=== PATIENT | female | born 1980 | race African-American/Black ===

== ENCOUNTER 2018-11-13 15:23 | Inpatient (IN) | payer SELFPAY ==
--- NOTE | 2018-11-13 16:49 | ER Document Report ---
ED Medical Screen (RME) - General Chief Complaint: Abdominal Pain Stated Complaint: ABDOMINAL PAIN Time Seen by Provider: 11/13/18 16:20 Mode of Arrival: Ambulatory Information source: Patient Notes: Patient is a 38-year-old female presenting to the emergency department with complaints of mid abdominal pain, diarrhea and nausea. Patient denies any fever or chills. She states that her symptoms started Saturday morning. Exam: Generalized abdominal tenderness to palpation. I have greeted and performed a rapid initial assessment of this patient. A comprehensive ED assessment and evaluation of the patient, analysis of test results and completion of the medical decision making process will be conducted by additional ED providers. Dictation of this chart was performed using voice recognition software; therefore, there may be some unintended grammatical errors. - Related Data Allergies/Adverse Reactions: No Known Allergies Allergy (Verified 11/13/18 15:25) Past Medical History Renal/ Medical History: Reports: Hx Ovarian Cysts. Denies: Hx Peritoneal Dialysis Physical Exam - Vital signs Vitals: Temp Pulse Resp BP Pulse Ox 98.8 F 100 20 138/76 H 100 11/13/18 15:27 11/13/18 15:27 11/13/18 15:27 11/13/18 15:27 11/13/18 15:27 Course - Vital Signs Vital signs: Temp Pulse Resp BP Pulse Ox 98.8 F 100 20 138/76 H 100 11/13/18 15:27 11/13/18 15:27 11/13/18 15:27 11/13/18 15:27 11/13/18 15:27
[2018-11-13 17:22] LABS: APPEARANCE,URINE CLEAR; BILIRUBIN,URINE NEGATIVE (NEGATIVE); COLOR,URINE YELLOW; GLUCOSE, URINE NEGATIVE (NEGATIVE); KETONES,URINE NEGATIVE (NEGATIVE); LEUKOCYTE ESTERASE,URINE NEGATIVE (NEGATIVE); NITRITE,URINE NEGATIVE (NEGATIVE); PROTEIN,URINE NEGATIVE (NEGATIVE); URINE SPECIFIC GRAVITY 1.004; UROBILINOGEN,URINE NEGATIVE mg/dL (<2.0)
[2018-11-13 19:54] LABS: ABSOLUTE BASOPHILS # (AUTO) 0.1 10^3/uL (0.0-0.2); ABSOLUTE LYMPHOCYTES (AUTO) 1.3 10^3/uL (0.5-4.7); ABSOLUTE MONOCYTES (AUTO) 1.4 10^3/uL (0.1-1.4); ABSOLUTE NEUT (AUTO) 16.1 10^3/uL (1.7-8.2); BASOPHILS % (AUTO) 0.3 % (0-2); HEMATOCRIT 22.3 % (36.0-47.0); LYMPHOCYTES % (AUTO) 6.7 % (13-45); MEAN CORPUSCULAR HEMOGLOBIN 16.1 pg (27.0-33.4); MEAN CORPUSCULAR HGB CONC 28.8 g/dL (32.0-36.0); MONOCYTES % (AUTO) 7.6 % (3-13); PLATELET COUNT 443 10^3/uL (150-450); RED BLOOD COUNT 3.99 10^6/uL (3.72-5.28); RED CELL DISTRIBUTION WIDTH 21.2 % (11.5-14.0); SEGMENTED NEUTROPHILS % (AUTO) 85.4 % (42-78); TOTAL CELLS COUNTED % (AUTO) 100 %; WHITE BLOOD COUNT 18.8 10^3/uL (4.0-10.5)
[2018-11-13 19:58] LABS: HEMOGLOBIN 6.4 g/dL (12.0-15.5); MEAN CORPUSCULAR VOLUME 56 fl (80-97)
[2018-11-13 20:09] LABS: PLATELET COMMENT ADEQUATE
[2018-11-13 20:12] LABS: ALANINE AMINOTRANSFERASE 15 U/L (9-52); ALKALINE PHOSPHATASE 91 U/L (38-126); ANION GAP 14 (5-19); ASPARTATE AMINO TRANSFERASE 14 U/L (14-36); BILIRUBIN,DIRECT 0.4 mg/dL (0.0-0.4); BILIRUBIN,TOTAL 1.3 mg/dL (0.2-1.3); BLOOD UREA NITROGEN 7 mg/dL (7-20); CALCIUM 9.5 mg/dL (8.4-10.2); CARBON DIOXIDE 20 mmol/L (22-30); CHLORIDE 104 mmol/L (98-107); GLUCOSE 109 mg/dL (75-110); LIPASE 47.1 U/L (23-300); POTASSIUM 4.1 mmol/L (3.6-5.0); SODIUM 137.7 mmol/L (137-145); TOTAL PROTEIN 8.1 g/dL (6.3-8.2)
[2018-11-13] MEDS ORDERED: NORMAL SALINE 250 ML IV PRN ×2 (20:13)
[2018-11-13] MEDS ORDERED: MORPHINE SULFATE 10 MG/ML INJ IV ONE (20:14)
[2018-11-13] MEDS ORDERED: ONDANSETRON HCL INJ/PF 4 MG/2 ML SDV IV ONE (20:14)
[2018-11-13 20:16] LABS: ANISOCYTOSIS 3+; HYPOCHROMASIA 3+; POIKILOCYTOSIS SLIGHT; POLYCHROMASIA 1+; TARGET CELLS 1+
--- NOTE | 2018-11-13 21:09 | ER Document Report ---
ED General - General Chief Complaint: Abdominal Pain Stated Complaint: ABDOMINAL PAIN Time Seen by Provider: 11/13/18 16:20 Mode of Arrival: Ambulatory Information source: Patient, [facility] Records Notes: 38-year-old female with no reported past medical history presents with complaint of abdominal pain, nausea, vomiting. Patient's abdominal pain started 1 day prior to arrival. Pain is generally located described as a cramping pain. Patient had associated nausea and one episode of vomiting today. Patient denies any fever, chills, chest pain, shortness of breath, dysuria, hematuria, diarrhe a, sick contacts. - HPI Onset: Yesterday Onset/Duration: Gradual, Persistent Quality of pain: Achy, Cramping, Stabbing Severity: Moderate Pain Level: 2 Associated symptoms: Nausea, Vomiting. denies: Chest pain, Fever, Shortness of breath Exacerbated by: Food Relieved by: Denies Similar symptoms previously: No Recently seen / treated by doctor: No - Related Data Allergies/Adverse Reactions: No Known Allergies Allergy (Verified 11/13/18 15:25) Past Medical History - General Information source: Patient - Social History Smoking Status: Never Smoker Frequency of alcohol use: None Drug Abuse: None Lives with: Alone Family History: Reviewed & Not Pertinent Patient has suicidal ideation: No Patient has homicidal ideation: No Renal/ Medical History: Reports: Hx Ovarian Cysts. Denies: Hx Peritoneal Dialysis Review of Systems - Review of Systems Notes: REVIEW OF SYSTEMS: CONSTITUTIONAL : Denies fever, chills, or sweats. Denies recent illness. Denies weight loss, recent hospitalizations. EENT: Denies visual changes, eye pain. Denies sore throat, oral lesions, difficulty swallowing. CARDIOVASCULAR: Denies chest pain. Denies palpitations. Denies lower extremity edema. RESPIRATORY: Denies cough. Denies shortness of breath, wheezing. GASTROINTESTINAL: Denies abdominal distention. Denies diarrhea. Denies blood in vomitus, stools, or per rectum. Denies black, tarry stools. Denies constipation. GENITOURINARY: Denies difficulty urinating, painful urination, frequency, blood in urine, or vaginal discharge. MUSCULOSKELETAL: Denies back or neck pain or stiffness. Denies joint pain or swelling. SKIN: Denies rash, lesions or sores. HEMATOLOGIC : Denies easy bruising or bleeding. LYMPHATIC: Denies swollen glands. NEUROLOGICAL: Denies confusion or altered mental status. Denies loss of consciousness. Denies dizziness or lightheadedness. Denies headache. Denies weakness or paralysis. Denies problems difficulty with ambulation, slurred speech. Denies sensory loss, numbness, or tingling. Denies seizures. PSYCHIATRIC: Denies anxiety or stress. Denies depression, suicidal ideation, or homicidal ideation. Denies visual or auditory hallucinations. Physical Exam - Vital signs Vitals: Temp Pulse Resp BP Pulse Ox 98.8 F 100 20 138/76 H 100 11/13/18 15:27 11/13/18 15:27 11/13/18 15:27 11/13/18 15:27 11/13/18 15:27 - Notes Notes: PHYSICAL EXAMINATION: GENERAL: Well-appearing, well-nourished and in no acute distress. HEAD: Atraumatic, normocephalic. EYES: Pupils equal round and reactive to light, extraocular movements intact, pale conjunctive a ENT: Nares patent, oropharynx clear without exudates. Moist mucous membranes. NECK: Normal range of motion, supple without lymphadenopathy LUNGS: Breath sounds clear to auscultation bilaterally and equal. No wheezes rales or rhonchi. HEART: Regular rate and rhythm without murmurs ABDOMEN: Diffuse tenderness with palpation. No guarding, no rebound. No masses appreciated. Female : deferred Rectal; brown stool occult blood negative Musculoskeletal: Normal range of motion, no pitting or edema. No cyanosis. NEUROLOGICAL: Cranial nerves grossly intact. Normal speech, normal gait. Normal sensory, motor exams PSYCH: Normal mood, normal affect. SKIN: Warm, Dry, normal turgor, no rashes or lesions noted. Course - Re-evaluation Re-evalutation: 11/13/18 21:08 Laboratory 11/13/18 11/13/18 11/13/18 15:30 19:38 19:38 WBC 18.8 H RBC 3.99 Hgb 6.4 L Hct 22.3 L MCV 56 L MCH 16.1 L MCHC 28.8 L RDW 21.2 H Plt Count 443 Seg Neutrophils % 85.4 H Lymphocytes % 6.7 L Monocytes % 7.6 Eosinophils % 0.0 Basophils % 0.3 Absolute Neutrophils 16.1 H Absolute Lymphocytes 1.3 Absolute Monocytes 1.4 Absolute Eosinophils 0.0 Absolute Basophils 0.1 Platelet Comment ADEQUATE Polychromasia 1+ Hypochromasia 3+ Poikilocytosis SLIGHT Anisocytosis 3+ Microcytosis 1+ Target Cells 1+ Sodium 137.7 Potassium 4.1 Chloride 104 Carbon Dioxide 20 L Anion Gap 14 BUN 7 Creatinine 0.73 Est GFR ( Amer) > 60 Est GFR (Non-Af Amer) > 60 Glucose 109 Calcium 9.5 Total Bilirubin 1.3 Direct Bilirubin 0.4 Neonat Total Bilirubin Not Reportable Neonat Direct Bilirubin Not Reportable Neonat Indirect Bili Not Reportable AST 14 ALT 15 Alkaline Phosphatase 91 Total Protein 8.1 Albumin 4.0 Lipase 47.1 Urine Color YELLOW Urine Appearance CLEAR Urine pH 6.0 Ur Specific [place] 1.004 Urine Protein NEGATIVE Urine Glucose (UA) NEGATIVE Urine Ketones NEGATIVE Urine Blood NEGATIVE Urine Nitrite NEGATIVE Urine Bilirubin NEGATIVE Urine Urobilinogen NEGATIVE Ur Leukocyte Esterase NEGATIVE Urine WBC (Auto) 1 Urine RBC (Auto) 1 Squamous Epi Cells Auto 2 Urine Mucus (Auto) RARE Urine Ascorbic Acid NEGATIVE Temp Pulse Resp BP Pulse Ox 98.8 F 100 20 138/76 H 100 11/13/18 15:27 11/13/18 15:27 11/13/18 15:27 11/13/18 15:27 11/13/18 15:27 Abdomen/Pelvis CT 11/13/18 20:00 IMPRESSION: Findings suspicious for acute sigmoid diverticulitis. Focus of gas density located immediately adjacent to the sigmoid colon as above described most likely corresponds to gas within a diverticula as opposed to a focus of contained perforation. No definitive areas of extraluminal free air identified. Likewise, no drainable fluid collections are apparent. Fibroid uterus. Additional multilobulated mass located adjacent to the anterior aspect of the uterine fundus potentially corresponds to a multilobulated/exophytic subserosal fibroid. However, confirmation with contrast-enhanced pelvic MR is suggested to confirm that this does not represent a solid ovarian mass or other malignancy. In addition, elements of inflammatory stranding are noted immediately adjacent to the inferior aspect of this mass though this is presumably related to the short segment of sigmoid diverticulitis. Additional ovoid fluid density located about the inferior aspect of the cecum near the base of the appendix presumably represents fluid within the cecum though technically an appendiceal mucocele could have this appearance. Consider correlation with repeat CT abdomen/pelvis with oral contrast for further assessment. TECHNICAL DOCUMENTATION: Quality ID # 436: Final reports with documentation of one or more dose reduction techniques (e.g., Automated exposure control, adjustment of the mA and/or kV according to patient size, use of iterative reconstruction technique) copyright 2011 [employer]- All Rights Reserved 38-year-old female presents with 1 day of abdominal pain and one episode of nausea and vomiting. Vital signs reviewed and patient is mildly tachycardic but afebrile and not hypotensive. Patient does appear pale and has pale conjunctive a. Hemoglobin found to be 6.4 Patient denies any black or bloody stools or previous history of required blood transfusion. Abdominal exam is significant for generalized tenderness no focal tenderness in the right lower quadrant, left lower quadrant or right upper quadrant. Rectal exam was performed and showed brown stool which was occult blood negative. Patient did receive morphine, Zofran and on reevaluation reports improvement of pain. 11/13/18 22:39 CT with multiple concerning findings including acute sigmoid diverticulitis. Diverticula contains gas. Dr. Echols general surgeon consulted for this due to pain out of proportion. Additional findings include a mom multilobulated mass adjacent to the uterine fundus which could represent a subserosal exophytic fibroid but recommendations are an MR to rule out malignancy. Patient did receive morphine, Zofran, IV fluids, Cipro, Flagyl. 2 units of PRBCs were ordered and pending. 11/13/18 22:59 Dr. Echols evaluated the patient and is not convinced that this is a diverticulitis picture. He is concern for a malignancy. Patient has been signed out to Dr. Campbell with MRI of the pelvis pending. - Vital Signs Vital signs: Temp Pulse Resp BP Pulse Ox 100.5 F H 103 H 17 149/68 H 100 11/14/18 18:16 11/14/18 18:16 11/14/18 18:16 11/14/18 18:16 11/14/18 18:16 - Laboratory Result Diagrams: 11/14/18 14:50 11/13/18 19:38 Laboratory results interpreted by me: 11/13/18 11/13/18 11/13/18 19:38 19:38 20:20 WBC 18.8 H Hgb 6.4 L Hct 22.3 L MCV 56 L MCH 16.1 L MCHC 28.8 L RDW 21.2 H Seg Neutrophils % 85.4 H Seg Neuts % (Manual) Lymphocytes % 6.7 L Lymphocytes % (Manual) Absolute Neutrophils 16.1 H Abs Neuts (Manual) Abs Lymphs (Manual) D-Dimer Carbon Dioxide 20 L Crossmatch See Detail 11/14/18 11/14/18 07:59 07:59 WBC 17.1 H Hgb 7.8 L Hct 26.1 L MCV 60 L D MCH 18.0 L MCHC 29.8 L RDW 28.2 H Seg Neutrophils % Seg Neuts % (Manual) 87 H Lymphocytes % Lymphocytes % (Manual) 2 L Absolute Neutrophils Abs Neuts (Manual) 15.4 H Abs Lymphs (Manual) 0.3 L D-Dimer 2.48 H Carbon Dioxide Crossmatch - Diagnostic Test Radiology reviewed: Image reviewed, Reports reviewed Discharge - Discharge Clinical Impression: Diverticulitis, Sigmoid diverticulitis, Pelvic mass Abdominal pain Qualifiers: Abdominal location: generalized Qualified Code(s): R10.84 - Generalized abdominal pain Anemia Qualifiers: Anemia type: unspecified type Qualified Code(s): D64.9 - Anemia, unspecified Fibroid uterus Qualifiers: Uterine leiomyoma location: submucous Qualified Code(s): D25.0 - Submucous leiomyoma of uterus Leukocytosis Qualifiers: Leukocytosis type: unspecified Qualified Code(s): D72.829 - Elevated white blood cell count, unspecified Condition: Stable Disposition: ADMITTED INPATIENT
--- NOTE | 2018-11-13 21:32 | RADIOLOGY REPORT (SQ) ---
EXAM DESCRIPTION: CT ABDOMEN PELVIS WITH IV CONTRAST COMPLETED DATE/TME: 11/13/2018 20:00 CLINICAL HISTORY: 38 years, Female, abd pain COMPARISON: None. TECHNIQUE: Contrast enhanced CT of the abdomen/pelvis was performed. Coronal and sagittal reformations were created. Images stored on PACS. All CT scanners at this facility use dose modulation, iterative reconstruction, and/or weight based dosing when appropriate to reduce radiation dose to as low as reasonably achievable (ALARA). [facility]: Dose Right [facility]: CareDose [facility]: Dose Right [facility]: Teradose 4D [facility]: [employer] LIMITATIONS: None. FINDINGS: Limited evaluation of the lower chest reveals clear lung bases. The liver, spleen, pancreas, gallbladder, and both adrenal glands appear normal. Both kidneys enhance symmetrically. There is no hydronephrosis or hydroureter. The urinary bladder is partially collapsed, thus its evaluation is limited. The uterus is diffusely enlarged, demonstrating multiple heterogenous masses, likely indicating multiple fibroids. However, there is an additional multilobulated soft tissue mass located adjacent to the anterior aspect of the uterus measuring 10.4 x 5.8 cm in size on image 59 of series 3. This appears to demonstrate elements of inflammatory stranding adjacent to the inferior aspect of the lesion. Scattered colonic diverticula are noted. There is mild inflammatory stranding located immediately adjacent to a short segment of sigmoid colon, best visualized on image 61 of series 3 as well as image 40 of series 601. Tiny focus of gas density located immediately adjacent to this inflamed segment of sigmoid colon most likely indicates gas within a diverticula as opposed to a contained perforation. Focal fluid density is noted about the inferior aspect of the cecum located adjacent to the base of the appendix. This does appear to demonstrate a somewhat ovoid configuration on coronal and sagittal reformations however. Vascular structures opacify with contrast normally. No suspicious lymphadenopathy is appreciated. A tiny amount of free fluid layers dependently within the pelvis. There are no drainable fluid collections. Bone windows show no destructive osseous lesions. IMPRESSION: Findings suspicious for acute sigmoid diverticulitis. Focus of gas density located immediately adjacent to the sigmoid colon as above described most likely corresponds to gas within a diverticula as opposed to a focus of contained perforation. No definitive areas of extraluminal free air identified. Likewise, no drainable fluid collections are apparent. Fibroid uterus. Additional multilobulated mass located adjacent to the anterior aspect of the uterine fundus potentially corresponds to a multilobulated/exophytic subserosal fibroid. However, confirmation with contrast-enhanced pelvic MR is suggested to confirm that this does not represent a solid ovarian mass or other malignancy. In addition, elements of inflammatory stranding are noted immediately adjacent to the inferior aspect of this mass though this is presumably related to the short segment of sigmoid diverticulitis. Additional ovoid fluid density located about the inferior aspect of the cecum near the base of the appendix presumably represents fluid within the cecum though technically an appendiceal mucocele could have this appearance. Consider correlation with repeat CT abdomen/pelvis with oral contrast for further assessment. TECHNICAL DOCUMENTATION: Quality ID # 436: Final reports with documentation of one or more dose reduction techniques (e.g., Automated exposure control, adjustment of the mA and/or kV according to patient size, use of iterative reconstruction technique) copyright 2011 [employer]- All Rights Reserved
[2018-11-13] MEDS ORDERED: METRONIDAZOLE 500 MG/NS RTU 500 MG/100 ML RTUPB IV ONE (22:37)
[2018-11-13] MEDS ORDERED: RINGERS SOLUTION,LACTATED 1,000 ML IV ONE (22:37)
[2018-11-13] MEDS ORDERED: LORAZEPAM INJ 2 MG/1 ML VIAL IV PRN (22:38)
--- NOTE | 2018-11-13 23:11 | PDOC CONSULTATION ---
Consultation Consult Date: 11/13/18 Provider Consulted: ROMERO GUTIERREZ Consult reason:: abdominal pain, sigmoid diverticulitis History of Present Illness History of Present Illness: ABRIL KENDRICK is a 38 year old female, morbidly obese, healthy, with no previous hx of diseases or conditions who presents to the ED with a hx of sudden onset of diffused abdominal pain x 2 days, semiliquid stools, no jhematochetis, emesis x 1. A CT scan A/P with IV contrast has been done and it sreading is consistent with sigmoid diverticulitits, multi-fibroid uterus, suspicious anterior right pelvic mass (possible ovarian mass), and cecal fluid collection near the base of the appendix as per possible a mucocele. Her WBC is 18.8, she is severely iron deficient anemic (H/H 6/.4/22.3) with low indices, while her remaining blood work and UA are normal. She has never had surgery, endoscopy, she had a PAP smear years ago which was normal, she has 4-5 day long menses, regular, with occasional heavy bleeding Social History Lives with: Alone Smoking Status: Never Smoker Family History Family History: Reviewed & Not Pertinent Parental Family History Reviewed: Yes - cancer Children Family History Reviewed: No Sibling(s) Family History Reviewed.: Yes - cancer Medication/Allergy Home Medications: Nitrofurantoin/Nitrofuran Mac [Macrobid 100 mg Capsule] 1 tab PO BID #20 capsule 03/04/14 Phenazopyridine HCl [Pyridium 100 Mg Tablet] 100 mg PO TID #9 tablet 03/04/14 Allergies/Adverse Reactions: No Known Allergies Allergy (Verified 11/13/18 15:25) Physical Exam Vital Signs: Temp Pulse Resp BP Pulse Ox 98.8 F 100 23 H 134/72 H 100 11/13/18 15:27 11/13/18 15:27 11/13/18 21:12 11/13/18 21:12 11/13/18 21:12 Intake & Output 11/12/18 11/13/18 11/14/18 06:59 06:59 06:59 Weight 107 kg General appearance: PRESENT: no acute distress, obese, well-developed, well- nourished Head exam: PRESENT: normocephalic Eye exam: PRESENT: EOMI, PERRLA Mouth exam: PRESENT: moist, neck supple Neck exam: PRESENT: full ROM Respiratory exam: PRESENT: clear to auscultation holli Cardiovascular exam: PRESENT: RRR GI/Abdominal exam: PRESENT: soft, tenderness - diffusely Rectal exam: PRESENT: deferred Neurological exam: PRESENT: altered, awake, oriented to situation Psychiatric exam: PRESENT: appropriate affect Focused psych exam: PRESENT: other Skin exam: PRESENT: warm Results Laboratory Results: 11/13/18 19:38 11/13/18 19:38 11/13/18 11/13/18 11/13/18 15:30 19:38 19:38 WBC 18.8 H RBC 3.99 Hgb 6.4 L Hct 22.3 L MCV 56 L MCH 16.1 L MCHC 28.8 L RDW 21.2 H Plt Count 443 Seg Neutrophils % 85.4 H Lymphocytes % 6.7 L Monocytes % 7.6 Eosinophils % 0.0 Basophils % 0.3 Absolute Neutrophils 16.1 H Absolute Lymphocytes 1.3 Absolute Monocytes 1.4 Absolute Eosinophils 0.0 Absolute Basophils 0.1 Sodium 137.7 Potassium 4.1 Chloride 104 Carbon Dioxide 20 L Anion Gap 14 BUN 7 Creatinine 0.73 Est GFR ( Amer) > 60 Est GFR (Non-Af Amer) > 60 Glucose 109 Calcium 9.5 Total Bilirubin 1.3 AST 14 ALT 15 Alkaline Phosphatase 91 Total Protein 8.1 Albumin 4.0 Lipase 47.1 Urine Color YELLOW Urine Appearance CLEAR Urine pH 6.0 Ur Specific [place] 1.004 Urine Protein NEGATIVE Urine Glucose (UA) NEGATIVE Urine Ketones NEGATIVE Urine Blood NEGATIVE Urine Nitrite NEGATIVE Ur Leukocyte Esterase NEGATIVE Urine WBC (Auto) 1 Urine RBC (Auto) 1 Blood Type Antibody Screen 11/13/18 20:20 WBC RBC Hgb Hct MCV MCH MCHC RDW Plt Count Seg Neutrophils % Lymphocytes % Monocytes % Eosinophils % Basophils % Absolute Neutrophils Absolute Lymphocytes Absolute Monocytes Absolute Eosinophils Absolute Basophils Sodium Potassium Chloride Carbon Dioxide Anion Gap BUN Creatinine Est GFR ( Amer) Est GFR (Non-Af Amer) Glucose Calcium Total Bilirubin AST ALT Alkaline Phosphatase Total Protein Albumin Lipase Urine Color Urine Appearance Urine pH Ur Specific [place] Urine Protein Urine Glucose (UA) Urine Ketones Urine Blood Urine Nitrite Ur Leukocyte Esterase Urine WBC (Auto) Urine RBC (Auto) Blood Type B POSITIVE Antibody Screen NEGATIVE Impressions: Abdomen/Pelvis CT 11/13/18 20:00 IMPRESSION: Findings suspicious for acute sigmoid diverticulitis. Focus of gas density located immediately adjacent to the sigmoid colon as above described most likely corresponds to gas within a diverticula as opposed to a focus of contained perforation. No definitive areas of extraluminal free air identified. Likewise, no drainable fluid collections are apparent. Fibroid uterus. Additional multilobulated mass located adjacent to the anterior aspect of the uterine fundus potentially corresponds to a multilobulated/exophytic subserosal fibroid. However, confirmation with contrast-enhanced pelvic MR is suggested to confirm that this does not represent a solid ovarian mass or other malignancy. In addition, elements of inflammatory stranding are noted immediately adjacent to the inferior aspect of this mass though this is presumably related to the short segment of sigmoid diverticulitis. Additional ovoid fluid density located about the inferior aspect of the cecum near the base of the appendix presumably represents fluid within the cecum though technically an appendiceal mucocele could have this appearance. Consider correlation with repeat CT abdomen/pelvis with oral contrast for further assessment. TECHNICAL DOCUMENTATION: Quality ID # 436: Final reports with documentation of one or more dose reduction techniques (e.g., Automated exposure control, adjustment of the mA and/or kV according to patient size, use of iterative reconstruction technique) copyright 2011 [employer]- All Rights Reserved Assessment & Plan - Diagnosis (1) Sigmoid diverticulitis Is this a current diagnosis for this admission?: Yes (2) Pelvic mass in female Is this a current diagnosis for this admission?: Yes (3) Uterine fibroid Qualifiers: Uterine leiomyoma location: intramural Qualified Code(s): D25.1 - Intramural leiomyoma of uterus Is this a current diagnosis for this admission?: Yes (4) Mucocele of appendix Is this a current diagnosis for this admission?: Yes - Plan Summary Plan Summary: A/ Sudden onset of abdominal pain in previously healthy female with negative medical or surgical histpory CT scan A/P significant for: 1) sigmoid diverticulitis 2) multi-fibroid uterus 3) large right lower pelvis mass, with differential diagnosis of ovarian mass v s. extrauterin fibroid; MRI recommended by Radiologist 4) pericecal fluid collection by the base pof the appendix which represent mucocele, repeated Ct A/p with IV/oral contrast recommended Leukocytosis (18.8K) Severe iron deficient anemia (6.4/22.3) with low indices of unknown origin (her stool hemoccult is negative) P/ Recommend as treatment for her sigmoid diverticulitis: IV Zosyn NPO IVF (NS @ 125 mL/hr) Repeat CT scan A/P witrh IV/oral contrast to r/o mucocele She will need MRI of the abdomen for the pelvic mass as well as OBGYN consultation
--- NOTE | 2018-11-14 00:32 | RADIOLOGY REPORT (SQ) ---
EXAM DESCRIPTION: MR PELVIS WITHOUT THEN WITH IV CONTRAST COMPLETED DATE/TME: 11/13/2018 22:08 CLINICAL HISTORY: 38 years, Female, concern for malignancy COMPARISON: CT abdomen/pelvis performed earlier the same day TECHNIQUE: Multiplanar, multisequence MR images of the pelvis were obtained both prior to and after the uneventful administration of intravenous contrast. Images stored on PACS. LIMITATIONS: None. FINDINGS: Multiple colonic diverticula are again visualized. Likewise, there is mild inflammatory stranding surrounding a short segment of sigmoid colon, best visualized on image 10 of series 6. Additional inflammatory stranding is evident about the anterior/inferior pelvis towards the left. Previously detailed ovoid focus of fluid density located about the inferior aspect of the cecum appears to simply correspond to layering fluid within the cecum. The appendix appears normal in configuration on this examination. The right ovary appears normal in configuration, demonstrating a few normal-appearing follicles. The left ovary appears normal in configuration as well, located to the left of the uterine mid body on image 20 of series 6. It appears to contain a few normal-appearing follicles as well. The uterus is diffusely enlarged, containing multiple hypointense T2/isointense T1 signal masses. The masses completely distort the endometrium. One of the larger masses is located about the leftward aspect of the uterine fundus measuring 7.9 x 6.6 x 7.8 cm in size. These lesions appear to demonstrate fairly similar imaging characteristics. In addition, the uterus also appears to demonstrate a few pedunculated masses about the anterior uterine fundus. One such pedunculated lesion measures 2.9 x 1.7 x 3.0 cm in size. A similar finding emanates from the inferior aspect of the uterine mid body, indenting the immediately adjacent urinary bladder. Likewise, the previously detailed heterogenous multilobulated mass located about the anterior/inferior abdomen is again identified. This also demonstrates fairly similar imaging characteristics to the masses located within the uterus. Overall, this mass measures 10.4 x 5.8 x 8.0 cm in size. It appears to demonstrate a fairly unusual attachment to the anterior uterine fundus on image 13 of series 6. This is also evident on T1-weighted imaging. Likewise, it also appears inseparable from the anterior uterine fundus on the sagittal postcontrast sequence (image 18 of series 12). All of the uterine masses appear to demonstrate fairly similar homogenous enhancement, save for one about the anterior/inferior aspect of the uterine fundus which may demonstrate a single element of degeneration. However, none of the lesions appear to demonstrate internal T1 shortening on precontrast imaging to suggest hemorrhage. A mildly prominent left external iliac chain lymph node is evident measuring 0.7 cm in short axis, not significantly enlarged by MR criteria. No additional suspicious findings are evident within the imaged pelvis. IMPRESSION: Previously detailed large mass located about the anterior/inferior abdomen appears to correspond to a large pedunculated leiomyoma in the midst multiple additional uterine leiomyomas, as above described. Specifically, the left ovary is well visualized and appears normal, demonstrating only a few normal-appearing follicles. However, given this lesion's large size and somewhat unusual configuration, continued follow-up/gynecological consultation would be of benefit to determine appropriate management and completely exclude a more sinister process such as leiomyosarcoma. Inflammatory stranding surrounding a short segment of sigmoid colon as well as the suspected large pedunculated fibroid about the anterior/inferior pelvis. Overall, findings remain suspicious for acute sigmoid diverticulitis although technically pelvic inflammatory disease could have this appearance. Correlate. copyright 2010 [employer]- All Rights Reserved
[2018-11-14] MEDS: MORPHINE SULFATE 10 MG/ML INJ IV PRN ×4 (00:42→15:21)
[2018-11-14] MEDS: CIPROFLOXACIN 400 MG/D5W RTU 400 MG/200 ML RTUPB IV SCH ×3 (00:53→22:23)
--- NOTE | 2018-11-14 05:45 | PDOC CONSULTATION ---
Consultation Consult Date: 11/14/18 Attending physician:: THANG GROVER Provider Consulted: ROSITA GALICIA Consult reason:: Abdominal pain History of Present Illness Patient complains of: Abdominal, pelvic pain History of Present Illness: ABRIL KENDRICK is a 38 year old female with significant past medical history morbid obesity presents with 24 hours of severe lower abdominal and pelvic pain and cramping coinciding with the onset of menses. In the emergency room she is found to have leukocytosis, microcytic anemia, Hemoccult negative stool and pelvic MRI with 10.4 x 5.8 x 8 cm anterior inferior abdominal mass with similar characteristics to multiple large pedunculated uterine masses. MRI also identifies inflammation and stranding surrounding a short segment of sigmoid colon involving the large pedunculated mass about the anterior inferior pelvis. Findings of acute sigmoid diverticulitis complicated by involved mass. Patient denies abnormal [employer] exam, previous episode of diverticulitis or pelvic inflammatory disease or irregular manses or menorrhagia. She is started on empiric antibiotics and transfused packed red blood cells. Past Medical History Medical History: None Cardiac Medical History: Reports: None Pulmonary Medical History: Reports: None EENT Medical History: Reports: None Neurological Medical History: Reports: None Endocrine Medical History: Reports: None Renal/ Medical History: Reports: None Malignancy Medical History: Reports: None GI Medical History: Reports: None Musculoskeltal Medical History: Reports: None Skin Medical History: Reports: None Psychiatric Medical History: Reports: None Traumatic Medical History: Reports: None Hematology: Reports: None Infectious Medical History: Reports: None Past Surgical History Past Surgical History: Reports: None Social History Information Source: Patient Lives with: Alone Smoking Status: Never Smoker Frequency of Alcohol Use: None Drugs: None - Advance Directive Resuscitation Status: Full Code Family History Family History: Arthritis Parental Family History Reviewed: Yes Children Family History Reviewed: Yes Sibling(s) Family History Reviewed.: Yes Medication/Allergy Home Medications: Nitrofurantoin/Nitrofuran Mac [Macrobid 100 mg Capsule] 1 tab PO BID #20 capsule 03/04/14 Phenazopyridine HCl [Pyridium 100 Mg Tablet] 100 mg PO TID #9 tablet 03/04/14 Allergies/Adverse Reactions: No Known Allergies Allergy (Verified 11/13/18 15:25) Review of Systems Constitutional: PRESENT: fatigue, headache(s) Eyes: ABSENT: visual disturbances Ears: ABSENT: hearing changes Cardiovascular: ABSENT: chest pain, dyspnea on exertion, edema, orthropnea, palpitations Respiratory: ABSENT: cough, hemoptysis Gastrointestinal: ABSENT: abdominal pain, constipation, diarrhea, hematemesis, hematochezia, nausea, vomiting Genitourinary: ABSENT: dysuria, hematuria Musculoskeletal: ABSENT: joint swelling Integumentary: ABSENT: rash, wounds Neurological: ABSENT: abnormal gait, abnormal speech, confusion, dizziness, focal weakness, syncope Psychiatric: ABSENT: anxiety, depression, homidical ideation, suicidal ideation Endocrine: ABSENT: cold intolerance, heat intolerance, polydipsia, polyuria Hematologic/Lymphatic: ABSENT: easy bleeding, easy bruising Physical Exam Vital Signs: Temp Pulse Resp BP Pulse Ox 98.7 F 88 30 H 114/65 98 11/14/18 05:01 11/14/18 00:16 11/14/18 05:01 11/14/18 05:01 11/14/18 05:01 Intake & Output 11/12/18 11/13/18 11/14/18 11:59 11:59 11:59 Intake Total 655 Balance 655 Weight 107 kg General appearance: PRESENT: cooperative, morbidly obese, severe distress Head exam: PRESENT: atraumatic, normocephalic Eye exam: PRESENT: conjunctiva pale, EOMI, PERRLA. ABSENT: scleral icterus Ear exam: PRESENT: normal external ear exam Mouth exam: PRESENT: moist, tongue midline Neck exam: ABSENT: carotid bruit, JVD, lymphadenopathy, thyromegaly Respiratory exam: PRESENT: clear to auscultation holli. ABSENT: rales, rhonchi, wheezes Cardiovascular exam: PRESENT: RRR, tachycardia. ABSENT: diastolic murmur, rubs, systolic murmur Pulses: PRESENT: normal dorsalis pedis pul Vascular exam: PRESENT: normal capillary refill GI/Abdominal exam: PRESENT: diminished bowel sounds, distended, guarding, normal bowel sounds, rebound, soft, tenderness. ABSENT: mass, organolmegaly Rectal exam: PRESENT: heme (-) stool Extremities exam: PRESENT: full ROM. ABSENT: calf tenderness, clubbing, pedal edema Neurological exam: PRESENT: alert, awake, oriented to person, oriented to place, oriented to time, oriented to situation, CN II-XII grossly intact. ABSENT: motor sensory deficit Psychiatric exam: PRESENT: appropriate affect, normal mood. ABSENT: homicidal ideation, suicidal ideation Skin exam: PRESENT: dry, intact, warm. ABSENT: cyanosis, rash Results Laboratory Results: 11/13/18 19:38 11/13/18 19:38 11/13/18 11/13/18 11/13/18 15:30 19:38 19:38 WBC 18.8 H RBC 3.99 Hgb 6.4 L Hct 22.3 L MCV 56 L MCH 16.1 L MCHC 28.8 L RDW 21.2 H Plt Count 443 Seg Neutrophils % 85.4 H Lymphocytes % 6.7 L Monocytes % 7.6 Eosinophils % 0.0 Basophils % 0.3 Absolute Neutrophils 16.1 H Absolute Lymphocytes 1.3 Absolute Monocytes 1.4 Absolute Eosinophils 0.0 Absolute Basophils 0.1 Sodium 137.7 Potassium 4.1 Chloride 104 Carbon Dioxide 20 L Anion Gap 14 BUN 7 Creatinine 0.73 Est GFR ( Amer) > 60 Est GFR (Non-Af Amer) > 60 Glucose 109 Calcium 9.5 Total Bilirubin 1.3 AST 14 ALT 15 Alkaline Phosphatase 91 Total Protein 8.1 Albumin 4.0 Lipase 47.1 Urine Color YELLOW Urine Appearance CLEAR Urine pH 6.0 Ur Specific [place] 1.004 Urine Protein NEGATIVE Urine Glucose (UA) NEGATIVE Urine Ketones NEGATIVE Urine Blood NEGATIVE Urine Nitrite NEGATIVE Ur Leukocyte Esterase NEGATIVE Urine WBC (Auto) 1 Urine RBC (Auto) 1 Blood Type Antibody Screen 11/13/18 20:20 WBC RBC Hgb Hct MCV MCH MCHC RDW Plt Count Seg Neutrophils % Lymphocytes % Monocytes % Eosinophils % Basophils % Absolute Neutrophils Absolute Lymphocytes Absolute Monocytes Absolute Eosinophils Absolute Basophils Sodium Potassium Chloride Carbon Dioxide Anion Gap BUN Creatinine Est GFR ( Amer) Est GFR (Non-Af Amer) Glucose Calcium Total Bilirubin AST ALT Alkaline Phosphatase Total Protein Albumin Lipase Urine Color Urine Appearance Urine pH Ur Specific [place] Urine Protein Urine Glucose (UA) Urine Ketones Urine Blood Urine Nitrite Ur Leukocyte Esterase Urine WBC (Auto) Urine RBC (Auto) Blood Type B POSITIVE Antibody Screen NEGATIVE Impressions: Abdomen/Pelvis CT 11/13/18 20:00 IMPRESSION: Findings suspicious for acute sigmoid diverticulitis. Focus of gas density located immediately adjacent to the sigmoid colon as above described most likely corresponds to gas within a diverticula as opposed to a focus of contained perforation. No definitive areas of extraluminal free air identified. Likewise, no drainable fluid collections are apparent. Fibroid uterus. Additional multilobulated mass located adjacent to the anterior aspect of the uterine fundus potentially corresponds to a multilobulated/exophytic subserosal fibroid. However, confirmation with contrast-enhanced pelvic MR is suggested to confirm that this does not represent a solid ovarian mass or other malignancy. In addition, elements of inflammatory stranding are noted immediately adjacent to the inferior aspect of this mass though this is presumably related to the short segment of sigmoid diverticulitis. Additional ovoid fluid density located about the inferior aspect of the cecum near the base of the appendix presumably represents fluid within the cecum though technically an appendiceal mucocele could have this appearance. Consider correlation with repeat CT abdomen/pelvis with oral contrast for further assessment. TECHNICAL DOCUMENTATION: Quality ID # [id number]: Final reports with documentation of one or more dose reduction techniques (e.g., Automated exposure control, adjustment of the mA and/or kV according to patient size, use of iterative reconstruction technique) copyright 2011 [employer]- All Rights Reserved Pelvis MRI 11/13/18 22:08 IMPRESSION: Previously detailed large mass located about the anterior/inferior abdomen appears to correspond to a large pedunculated leiomyoma in the midst multiple additional uterine leiomyomas, as above described. Specifically, the left ovary is well visualized and appears normal, demonstrating only a few normal-appearing follicles. However, given this lesion's large size and somewhat unusual configuration, continued follow-up/gynecological consultation would be of benefit to determine appropriate management and completely exclude a more sinister process such as leiomyosarcoma. Inflammatory stranding surrounding a short segment of sigmoid colon as well as the suspected large pedunculated fibroid about the anterior/inferior pelvis. Overall, findings remain suspicious for acute sigmoid diverticulitis although technically pelvic inflammatory disease could have this appearance. Correlate. copyright 2010 [employer]- All Rights Reserved Assessment and Plan - Diagnosis (1) Pelvic mass in female Is this a current diagnosis for this admission?: Yes Plan: Given MRI evidence uterine masses beyond the uterus adjacent to bowel inflammation I am concerned for [employer] malignancy with involvement of the colon. Agree with empiric antibiotics for diverticular disease however strongly recommend transfer to tertiary care for evaluation by [employer] oncology. I have discussed my findings and recommendations with emergency department attending. (2) Sigmoid diverticulitis Is this a current diagnosis for this admission?: Yes Plan: Underlying cause suspicious for [employer] malignancy with mass adjacency. Recommend transfer to tertiary care for a [employer] oncology evaluation agree with empiric antibiotics, fluid resuscitation and symptomatic management. (3) Microcytic anemia Is this a current diagnosis for this admission?: Yes Plan: Underlying cause most likely uterine given Hemoccult stool negativity. I agree with packed red blood transfusion to hemoglobin goal of 7. - Time Time Spent with patient: 35 or more minutes
--- NOTE | 2018-11-14 07:14 | ER Document Report ---
ED General - General Mode of Arrival: Ambulatory <SHIRLEY DRAKE - Last Filed: 11/14/18 07:42> <DYERBRAYDEN - Last Filed: 11/14/18 14:49> - General Chief Complaint: Abdominal Pain Stated Complaint: ABDOMINAL PAIN Time Seen by Provider: 11/13/18 16:20 - HPI Notes: Patient is a 38-year-old female who presents emergency department for evaluation of cramping abdominal pain. She states that 2 days ago she had nausea and emesis x1. States since then she has had no emesis. She had been constipated prior to that. She took some mag ox and had a few loose bowel movements yesterday. She has a cramping abdominal pain is throughout her entire abdomen. She is also menstruating currently. She states she does have heavy menses. She denies any vaginal discharge. She is not currently following with an DISTANCE LEARNING UNIT LEADER or a primary care provider. (SHIRLEY DRAKE) - Related Data Allergies/Adverse Reactions: No Known Allergies Allergy (Verified 11/13/18 15:25) Past Medical History - General Information source: Patient - Social History Smoking Status: Never Smoker Frequency of alcohol use: None Drug Abuse: None Lives with: Alone Family History: Arthritis Patient has suicidal ideation: No Patient has homicidal ideation: No - Past Medical History Cardiac Medical History: Reports: None Pulmonary Medical History: Reports: None EENT Medical History: Reports: None Neurological Medical History: Reports: None Endocrine Medical History: Reports: None Renal/ Medical History: Reports: None, Hx Ovarian Cysts. Denies: Hx Peritoneal Dialysis Malignancy Medical History: Reports: None GI Medical History: Reports: None Musculoskeletal Medical History: Reports None Skin Medical History: Reports None Psychiatric Medical History: Reports: None Traumatic Medical History: Reports: None Infectious Medical History: Reports: None Past Surgical History: Reports: None <SHIRLEY DRAKE - Last Filed: 11/14/18 07:42> Review of Systems - Review of Systems Constitutional: No symptoms reported EENT: No symptoms reported Cardiovascular: No symptoms reported Respiratory: No symptoms reported Gastrointestinal: See HPI Genitourinary: No symptoms reported Female Genitourinary: See HPI Musculoskeletal: No symptoms reported Skin: No symptoms reported Neurological/Psychological: No symptoms reported <SHIRLEY DRAKE - Last Filed: 11/14/18 07:42> Physical Exam <NOELLESHIRLEY - Last Filed: 11/14/18 07:42> - Vital signs Vitals: Temp Pulse Resp BP Pulse Ox 98.8 F 100 20 138/76 H 100 11/13/18 15:27 11/13/18 15:27 11/13/18 15:27 11/13/18 15:27 11/13/18 15:27 - Notes Notes: Vital signs reviewed, please refer to chart. Head is normocephalic, atraumatic. Pupils equal round, reactive to light. Neck is supple without meningismus. Heart is regular rate and rhythm. Lungs are clear to auscultation bilaterally. Abdomen is soft, moderately diffusely tender without rebound or guarding, normoactive bowel sounds throughout. Extremities without cyanosis, clubbing. Posterior calves are nontender. Peripheral pulses are equal. Skin is warm and dry. Patient is awake, alert, neurological exam is nonfocal. (SHIRLEY DRAKE) Course - Laboratory Result Diagrams: 11/13/18 19:38 11/13/18 19:38 <SHIRLEY DRAKE - Last Filed: 11/14/18 07:42> - Laboratory Result Diagrams: 11/14/18 07:59 11/13/18 19:38 <BRAYDEN DYER - Last Filed: 11/14/18 14:49> - Re-evaluation Re-evalutation: 11/14/18 07:08 Patient presents to the emergency department for evaluation of abdominal pain. She was initially seen by ED physician Dr. Gallego. Please see her note for the beginning of this patient's ED course. In short the patient had blood work and CT scan of the abdomen and pelvis ordered. Blood work revealed a significant leukocytosis as well as a significant anemia. Blood transfusion was ordered. CT scan revealed findings concerning for diverticulitis, as well as pelvic mass. MRI was recommended for further characterization of this mass. MRI was performed. MRI revealed significant leiomyomas, pedunculated and intramural in the uterus. Findings remained consistent with a sigmoid diverticulitis as well. Patient was given IV Cipro and Flagyl. Dr. Echols had seen the patient in consult prior to the MRI. He recommended repeat CT abdomen pelvis with IV and oral contrast for further characterization of the possible diverticulitis. He recommended IV Zosyn, Cipro and Flagyl is already been ordered. He stated that if there were signs of clear malignancy on MRI, the patient would require transfer him to his opinion. MRI showed significant leiomyomas, and given their size recommended follow-up for possible leiomyosarcoma. I spoke with gynecology at [facility]. I was advised that I could not speak to gynecology/oncology, as there was no tissue diagnosis. I spoke with gynecology at [facility], specifically Dr. Penny. At this point she states that there does not seem to be any gynecological reason to admit the patient based on these findings. She certainly agrees that this needs follow-up. She agrees to see the patient in follow-up in her clinic, will have the schedulers reach out to her. She also gave me a phone number for the patient to call for follow-up. Here, however, the patient still remains with a diverticulitis and an 18,000 white count. She remains tender. She has received blood. She is stable, but she does not have good follow-up. I am concerned about the possibility of progression of this diverticulitis. I do believe it is reasonable for the patient to be observed here in our hospital, to be sure that her hemoglobin stabilizes, to be sure that her diverticulitis improves. I spoke with Dr. Cash. He came and evaluated the patient. He states to me that he does not believe that her pain or symptoms have anything to do with diverticulitis. He does agree with treatment, believes however that she needs evaluation at a tertiary center. Gynecology at a tertiary center does not see a need for urgent evaluation as an inpatient. I am more concerned about the diverticulitis and 18,000 white count. I spoke with Dr. Chacon, casing grader here. She states that given the findings she does not have a strong suspicion for leiomyosarcoma. She states it is significant and rapid change would be more concerning, and we do not have any evidence of that at this time. She did review the patient's CT and MRI, and again believes these to be simple fibroids. She certainly would be happy to see the patient in consult, arrange outpatient follow-up. She also asks for a dirty urine to evaluate for gonorrhea and chlamydia. Nurse was notified. She states it is likely that the bleeding has been going on for some time, and her hemoglobin was near her baseline. It is certainly reasonable to assume so. Her heart rate was only mildly elevated on arrival at 100. She has been in the 80s since then. I spoke again with Dr. Cash. He states he will pass this information on to the day team. Will admit the patient for diverticulitis. 11/14/18 07:26 11/14/18 07:27 (SHIRLEY DRAKE) - Vital Signs Vital signs: Temp Pulse Resp BP Pulse Ox 98.7 F 88 33 H 126/66 H 99 11/14/18 07:46 11/14/18 00:16 11/14/18 11:01 11/14/18 11:00 11/14/18 11:01 - Laboratory Laboratory results interpreted by me: 11/13/18 11/13/18 11/13/18 19:38 19:38 20:20 WBC 18.8 H Hgb 6.4 L Hct 22.3 L MCV 56 L MCH 16.1 L MCHC 28.8 L RDW 21.2 H Seg Neutrophils % 85.4 H Seg Neuts % (Manual) Lymphocytes % 6.7 L Lymphocytes % (Manual) Absolute Neutrophils 16.1 H Abs Neuts (Manual) Abs Lymphs (Manual) D-Dimer Carbon Dioxide 20 L Crossmatch See Detail 11/14/18 11/14/18 07:59 07:59 WBC 17.1 H Hgb 7.8 L Hct 26.1 L MCV 60 L D MCH 18.0 L MCHC 29.8 L RDW 28.2 H Seg Neutrophils % Seg Neuts % (Manual) 87 H Lymphocytes % Lymphocytes % (Manual) 2 L Absolute Neutrophils Abs Neuts (Manual) 15.4 H Abs Lymphs (Manual) 0.3 L D-Dimer 2.48 H Carbon Dioxide Crossmatch Discharge <SHIRLEY DRAKE - Last Filed: 11/14/18 07:42> - Discharge Admitting Provider: Enrike (Hospitalist) Unit Admitted: Medical Floor <BRAYDEN DYER - Last Filed: 11/14/18 14:49> - Discharge Clinical Impression: Diverticulitis, Sigmoid diverticulitis, Pelvic mass Abdominal pain Qualifiers: Abdominal location: generalized Qualified Code(s): R10.84 - Generalized abdominal pain Anemia Qualifiers: Anemia type: unspecified type Qualified Code(s): D64.9 - Anemia, unspecified Fibroid uterus Qualifiers: Uterine leiomyoma location: submucous Qualified Code(s): D25.0 - Submucous leiomyoma of uterus Leukocytosis Qualifiers: Leukocytosis type: unspecified Qualified Code(s): D72.829 - Elevated white blood cell count, unspecified Condition: Stable Disposition: ADMITTED INPATIENT
[2018-11-14 08:25] LABS: HEMATOCRIT 26.1 % (36.0-47.0); MEAN CORPUSCULAR HGB CONC 29.8 g/dL (32.0-36.0); PLATELET COUNT 384 10^3/uL (150-450); RED BLOOD COUNT 4.33 10^6/uL (3.72-5.28); RED CELL DISTRIBUTION WIDTH 28.2 % (11.5-14.0); WHITE BLOOD COUNT 17.1 10^3/uL (4.0-10.5)
[2018-11-14 08:27] LABS: MEAN CORPUSCULAR VOLUME 60 fl (80-97)
[2018-11-14 08:30] LABS: HEMOGLOBIN 7.8 g/dL (12.0-15.5)
[2018-11-14 08:41] LABS: ABSOLUTE LYMPHOCYTES# (MANUAL) 0.3 10^3/uL (0.5-4.7); ABSOLUTE MONOCYTES # (MANUAL) 1.2 10^3/uL (0.1-1.4); BAND NEUTROPHILS % (MANUAL) 3 % (3-5); BASOPHILS % (MANUAL) 0 % (0-2); EOSINOPHILS % (MANUAL) 1 % (0-6); LYMPHOCYTES % (MANUAL) 2 % (13-45); MONOCYTES % (MANUAL) 7 % (3-13); SEGMENTED NEUTROPHILS % (MAN) 87 % (42-78); TOTAL CELLS COUNTED 100
[2018-11-14 08:42] LABS: ANISOCYTOSIS 4+; HYPOCHROMASIA 3+; TARGET CELLS 1+
[2018-11-14 08:43] LABS: PLATELET COMMENT ADEQUATE
--- NOTE | 2018-11-14 09:51 | PDOC CONSULTATION ---
Consultation Consult Date: 11/14/18 Provider Consulted: VELIA SCHWARTZ Consult reason:: uterine fibroids History of Present Illness Patient complains of: acute onset pelvic pain History of Present Illness: ABRIL KENDRICK is a 38 year old female, I was asked to review the consult and radiology reports/images. Patient's images reviewed and history reviewed. She has long history of heavy menses. Multiple fibroids are present. One does appear to be possibly degenerating. Radiology reports mention possibility of leiomyosarcoma, however given the patient's age and long history of symptoms associated with fiborids, this is unlikely. Past Medical History Cardiac Medical History: Reports: None Pulmonary Medical History: Reports: None EENT Medical History: Reports: None Neurological Medical History: Reports: None Endocrine Medical History: Reports: None Renal/ Medical History: Reports: None Malignancy Medical History: Reports: None GI Medical History: Reports: None Musculoskeltal Medical History: Reports: None Skin Medical History: Reports: None Psychiatric Medical History: Reports: None Traumatic Medical History: Reports: None Infectious Medical History: Reports: None Social History Lives with: Alone Smoking Status: Never Smoker Frequency of Alcohol Use: None Drugs: None - Advance Directive Resuscitation Status: Full Code Family History Family History: Arthritis Parental Family History Reviewed: Yes Children Family History Reviewed: Yes Sibling(s) Family History Reviewed.: Yes Medication/Allergy Home Medications: Nitrofurantoin/Nitrofuran Mac [Macrobid 100 mg Capsule] 1 tab PO BID #20 capsule 03/04/14 Phenazopyridine HCl [Pyridium 100 Mg Tablet] 100 mg PO TID #9 tablet 03/04/14 Allergies/Adverse Reactions: No Known Allergies Allergy (Verified 11/13/18 15:25) Physical Exam - Physical Exam Vital Signs: Temp Pulse Resp BP Pulse Ox 98.7 F 88 18 134/70 H 99 11/14/18 07:46 11/14/18 00:16 11/14/18 09:01 11/14/18 09:00 11/14/18 09:01 Intake & Output 11/13/18 11/14/18 11/15/18 06:59 06:59 06:59 Intake Total 955 51 Balance 955 51 Weight 107 kg General appearance: PRESENT: no acute distress, cooperative - Gynecological Exam Uterus: masses - enlarged past umbilicus Result Laboratory Results: 11/14/18 07:59 11/13/18 19:38 11/13/18 11/13/18 11/13/18 15:30 19:38 19:38 WBC 18.8 H RBC 3.99 Hgb 6.4 L Hct 22.3 L MCV 56 L MCH 16.1 L MCHC 28.8 L RDW 21.2 H Plt Count 443 Seg Neutrophils % 85.4 H Lymphocytes % 6.7 L Monocytes % 7.6 Eosinophils % 0.0 Basophils % 0.3 Absolute Neutrophils 16.1 H Absolute Lymphocytes 1.3 Absolute Monocytes 1.4 Absolute Eosinophils 0.0 Absolute Basophils 0.1 Sodium 137.7 Potassium 4.1 Chloride 104 Carbon Dioxide 20 L Anion Gap 14 BUN 7 Creatinine 0.73 Est GFR ( Amer) > 60 Est GFR (Non-Af Amer) > 60 Glucose 109 Calcium 9.5 Total Bilirubin 1.3 AST 14 ALT 15 Alkaline Phosphatase 91 Total Protein 8.1 Albumin 4.0 Lipase 47.1 Urine Color YELLOW Urine Appearance CLEAR Urine pH 6.0 Ur Specific [place] 1.004 Urine Protein NEGATIVE Urine Glucose (UA) NEGATIVE Urine Ketones NEGATIVE Urine Blood NEGATIVE Urine Nitrite NEGATIVE Ur Leukocyte Esterase NEGATIVE Urine WBC (Auto) 1 Urine RBC (Auto) 1 Blood Type Antibody Screen 11/13/18 11/14/18 20:20 07:59 WBC 17.1 H RBC 4.33 Hgb 7.8 L Hct 26.1 L MCV 60 L D MCH 18.0 L MCHC 29.8 L RDW 28.2 H Plt Count 384 Seg Neutrophils % Not Reportable Lymphocytes % Not Reportable Monocytes % Not Reportable Eosinophils % Not Reportable Basophils % Not Reportable Absolute Neutrophils Not Reportable Absolute Lymphocytes Not Reportable Absolute Monocytes Not Reportable Absolute Eosinophils Not Reportable Absolute Basophils Not Reportable Sodium Potassium Chloride Carbon Dioxide Anion Gap BUN Creatinine Est GFR ( Amer) Est GFR (Non-Af Amer) Glucose Calcium Total Bilirubin AST ALT Alkaline Phosphatase Total Protein Albumin Lipase Urine Color Urine Appearance Urine pH Ur Specific [place] Urine Protein Urine Glucose (UA) Urine Ketones Urine Blood Urine Nitrite Ur Leukocyte Esterase Urine WBC (Auto) Urine RBC (Auto) Blood Type B POSITIVE Antibody Screen NEGATIVE Impressions: Abdomen/Pelvis CT 11/13/18 20:00 IMPRESSION: Findings suspicious for acute sigmoid diverticulitis. Focus of gas density located immediately adjacent to the sigmoid colon as above described most likely corresponds to gas within a diverticula as opposed to a focus of contained perforation. No definitive areas of extraluminal free air identified. Likewise, no drainable fluid collections are apparent. Fibroid uterus. Additional multilobulated mass located adjacent to the anterior aspect of the uterine fundus potentially corresponds to a multilobulated/exophytic subserosal fibroid. However, confirmation with contrast-enhanced pelvic MR is suggested to confirm that this does not represent a solid ovarian mass or other malignancy. In addition, elements of inflammatory stranding are noted immediately adjacent to the inferior aspect of this mass though this is presumably related to the short segment of sigmoid diverticulitis. Additional ovoid fluid density located about the inferior aspect of the cecum near the base of the appendix presumably represents fluid within the cecum though technically an appendiceal mucocele could have this appearance. Consider correlation with repeat CT abdomen/pelvis with oral contrast for further assessment. TECHNICAL DOCUMENTATION: Quality ID # [id number]: Final reports with documentation of one or more dose reduction techniques (e.g., Automated exposure control, adjustment of the mA and/or kV according to patient size, use of iterative reconstruction technique) copyright 2011 [employer]- All Rights Reserved Pelvis MRI 11/13/18 22:08 IMPRESSION: Previously detailed large mass located about the anterior/inferior abdomen appears to correspond to a large pedunculated leiomyoma in the midst multiple additional uterine leiomyomas, as above described. Specifically, the left ovary is well visualized and appears normal, demonstrating only a few normal-appearing follicles. However, given this lesion's large size and somewhat unusual configuration, continued follow-up/gynecological consultation would be of benefit to determine appropriate management and completely exclude a more sinister process such as leiomyosarcoma. Inflammatory stranding surrounding a short segment of sigmoid colon as well as the suspected large pedunculated fibroid about the anterior/inferior pelvis. Overall, findings remain suspicious for acute sigmoid diverticulitis although technically pelvic inflammatory disease could have this appearance. Correlate. copyright 2011 [employer]- All Rights Reserved Assessment & Plan - Diagnosis (1) Abdominal pain Is this a current diagnosis for this admission?: Yes (2) Anemia Qualifiers: Anemia type: unspecified type Qualified Code(s): D64.9 - Anemia, unspecified Is this a current diagnosis for this admission?: Yes (3) Diverticulitis Is this a current diagnosis for this admission?: Yes (4) Fibroid uterus Qualifiers: Uterine leiomyoma location: submucous Qualified Code(s): D25.0 - Submucous leiomyoma of uterus Is this a current diagnosis for this admission?: Yes (5) Leukocytosis Is this a current diagnosis for this admission?: Yes (6) Pelvic mass Is this a current diagnosis for this admission?: Yes - Plan Summary Plan Summary: Patient needs treatment for her diverticulitis at this time. Fibroids are definitely present and causing chronic medical issues but these are nonacute. Will be better able to evaluate as outpatient and arrange hysterectomy. Please have her follow up with me when she is discharged. Would recommend blood transfusion as given already in the ER and please follow up a post transfusion hemoglobin. Thank you for the consult.
[2018-11-14 10:32] LABS: PATH REVIEW PATHOLOGIST REVIEWED
[2018-11-14] MEDS ORDERED: ALBUTEROL SULFATE 0.083% NEB 2.5 MG/3 ML AMPUL NEB PRN (12:54)
[2018-11-14] MEDS ORDERED: NORMAL SALINE 1000 ML 1,000 ML IV PRN (12:54)
[2018-11-14] MEDS ORDERED: PIPERACILLIN SODIUM/TAZOBACTAM 3.375 GM in NORMAL SALINE 100 ML IV SCH (13:05)
--- NOTE | 2018-11-14 13:16 | PDOC PROGRESS REPORT ---
Subjective Progress Note for:: 11/14/18 Subjective:: patient feels somewhat better, no N/V, no flatus or stools. Still abdominal pain while moving around. Reason For Visit: ABDOMINAL PAIN Physical Exam Vital Signs: Temp Pulse Resp BP Pulse Ox 98.7 F 88 33 H 126/66 H 99 11/14/18 07:46 11/14/18 00:16 11/14/18 11:01 11/14/18 11:00 11/14/18 11:01 Intake & Output 11/13/18 11/14/18 11/15/18 06:59 06:59 06:59 Intake Total 955 1251 Balance 955 1251 Weight 107 kg General appearance: PRESENT: no acute distress, obese Respiratory exam: PRESENT: clear to auscultation holli Cardiovascular exam: PRESENT: RRR GI/Abdominal exam: PRESENT: other - obese, no bowel sounds, diffusely tender on palpation Results Laboratory Results: 11/14/18 07:59 11/13/18 19:38 11/13/18 11/13/18 11/13/18 15:30 19:38 19:38 WBC 18.8 H RBC 3.99 Hgb 6.4 L Hct 22.3 L MCV 56 L MCH 16.1 L MCHC 28.8 L RDW 21.2 H Plt Count 443 Seg Neutrophils % 85.4 H Lymphocytes % 6.7 L Monocytes % 7.6 Eosinophils % 0.0 Basophils % 0.3 Absolute Neutrophils 16.1 H Absolute Lymphocytes 1.3 Absolute Monocytes 1.4 Absolute Eosinophils 0.0 Absolute Basophils 0.1 Sodium 137.7 Potassium 4.1 Chloride 104 Carbon Dioxide 20 L Anion Gap 14 BUN 7 Creatinine 0.73 Est GFR ( Amer) > 60 Est GFR (Non-Af Amer) > 60 Glucose 109 Calcium 9.5 Total Bilirubin 1.3 AST 14 ALT 15 Alkaline Phosphatase 91 Total Protein 8.1 Albumin 4.0 Lipase 47.1 Urine Color YELLOW Urine Appearance CLEAR Urine pH 6.0 Ur Specific [place] 1.004 Urine Protein NEGATIVE Urine Glucose (UA) NEGATIVE Urine Ketones NEGATIVE Urine Blood NEGATIVE Urine Nitrite NEGATIVE Ur Leukocyte Esterase NEGATIVE Urine WBC (Auto) 1 Urine RBC (Auto) 1 Blood Type Antibody Screen 11/13/18 11/14/18 20:20 07:59 WBC 17.1 H RBC 4.33 Hgb 7.8 L Hct 26.1 L MCV 60 L D MCH 18.0 L MCHC 29.8 L RDW 28.2 H Plt Count 384 Seg Neutrophils % Not Reportable Lymphocytes % Not Reportable Monocytes % Not Reportable Eosinophils % Not Reportable Basophils % Not Reportable Absolute Neutrophils Not Reportable Absolute Lymphocytes Not Reportable Absolute Monocytes Not Reportable Absolute Eosinophils Not Reportable Absolute Basophils Not Reportable Sodium Potassium Chloride Carbon Dioxide Anion Gap BUN Creatinine Est GFR ( Amer) Est GFR (Non-Af Amer) Glucose Calcium Total Bilirubin AST ALT Alkaline Phosphatase Total Protein Albumin Lipase Urine Color Urine Appearance Urine pH Ur Specific [place] Urine Protein Urine Glucose (UA) Urine Ketones Urine Blood Urine Nitrite Ur Leukocyte Esterase Urine WBC (Auto) Urine RBC (Auto) Blood Type B POSITIVE Antibody Screen NEGATIVE Impressions: Abdomen/Pelvis CT 11/13/18 20:00 IMPRESSION: Findings suspicious for acute sigmoid diverticulitis. Focus of gas density located immediately adjacent to the sigmoid colon as above described most likely corresponds to gas within a diverticula as opposed to a focus of contained perforation. No definitive areas of extraluminal free air identified. Likewise, no drainable fluid collections are apparent. Fibroid uterus. Additional multilobulated mass located adjacent to the anterior aspect of the uterine fundus potentially corresponds to a multilobulated/exophytic subserosal fibroid. However, confirmation with contrast-enhanced pelvic MR is suggested to confirm that this does not represent a solid ovarian mass or other malignancy. In addition, elements of inflammatory stranding are noted immediately adjacent to the inferior aspect of this mass though this is presumably related to the short segment of sigmoid diverticulitis. Additional ovoid fluid density located about the inferior aspect of the cecum near the base of the appendix presumably represents fluid within the cecum though technically an appendiceal mucocele could have this appearance. Consider correlation with repeat CT abdomen/pelvis with oral contrast for further assessment. TECHNICAL DOCUMENTATION: Quality ID # 436: Final reports with documentation of one or more dose reduction techniques (e.g., Automated exposure control, adjustment of the mA and/or kV according to patient size, use of iterative reconstruction technique) copyright 2011 [employer]- All Rights Reserved Pelvis MRI 11/13/18 22:08 IMPRESSION: Previously detailed large mass located about the anterior/inferior abdomen appears to correspond to a large pedunculated leiomyoma in the midst multiple additional uterine leiomyomas, as above described. Specifically, the left ovary is well visualized and appears normal, demonstrating only a few normal-appearing follicles. However, given this lesion's large size and somewhat unusual configuration, continued follow-up/gynecological consultation would be of benefit to determine appropriate management and completely exclude a more sinister process such as leiomyosarcoma. Inflammatory stranding surrounding a short segment of sigmoid colon as well as the suspected large pedunculated fibroid about the anterior/inferior pelvis. Overall, findings remain suspicious for acute sigmoid diverticulitis although technically pelvic inflammatory disease could have this appearance. Correlate. copyright 2010 [employer]- All Rights Reserved Assessment & Plan - Diagnosis (1) Sigmoid diverticulitis Is this a current diagnosis for this admission?: Yes (2) Pelvic mass in female Is this a current diagnosis for this admission?: Yes (3) Uterine fibroid Qualifiers: Uterine leiomyoma location: intramural Qualified Code(s): D25.1 - Intramural leiomyoma of uterus Is this a current diagnosis for this admission?: Yes - Plan Summary Plan Summary: A/ Abdominal pain with leukocytosis and sigmoid diverticulosis on CT scan A/P Abdominal pain somewhat improved, coke still cleaner on palpation CT scan A/P reviewed with second Staff Radiologist in house: No mucocele identified, pelvic mass most likely represents peduncolated uterine fibroid, even though leyomyosarcoma cannot be definitively excluded; sigmoid diverticulitis is confirmed WBC decreased from 18K last evening to 17.1K this AM [facility] has evaluated patient and it has determined that the patient can be followed up as outpatient because of her uterine fibroids; possibility of malignancy can be entertined and it will be up tpo [facility] to make final determination P/ Because of the above, patient will be admitted by Hospitalist Service Continue NPO except for ice chips Continue Zosyn and IVF Diet to be advanced once WBC improves further and patient becomes less symptomatic
--- NOTE | 2018-11-14 13:32 | RADIOLOGY REPORT (SQ) ---
EXAM DESCRIPTION: CHEST SINGLE VIEW COMPLETED DATE/TIME: 11/14/2018 1:21 pm REASON FOR STUDY: tachypnea, leukocytosis COMPARISON: None. EXAM PARAMETERS: NUMBER OF VIEWS: One view. TECHNIQUE: Single frontal radiographic view of the chest acquired. RADIATION DOSE: NA LIMITATIONS: None. FINDINGS: LUNGS AND PLEURA: No opacities, masses or pneumothorax. No pleural effusion. MEDIASTINUM AND HILAR STRUCTURES: No masses. Contour normal. HEART AND VASCULAR STRUCTURES: Heart normal in size. Normal vasculature. BONES: No acute findings. HARDWARE: None in the chest. OTHER: No other significant finding. IMPRESSION: NO ACUTE RADIOGRAPHIC FINDING IN THE CHEST. TECHNICAL DOCUMENTATION: JOB ID: [id number] [employer]- All Rights Reserved Reading location - IP/workstation name: [email or web address]
--- NOTE | 2018-11-14 14:54 | ER Document Report ---
Doctor's Note Notes: 11/14/18 14:50 Patient's care was signed over to me after she was admitted by Dr. Campbell overnight. I was contacted this morning by Dr. Calvert who is requesting that [facility] consultation note be put in the computer prior to excepting patient onto their service. He was concerned that patient may be requiring transfer to outside facility for gynecologic care. I discussed her care with Dr. Leon who states she is not requiring inpatient FINISHING OPERATOR care. Patient's care again discussed with Dr. Calvert who accepted admission.
[2018-11-14] MEDS: NORMAL SALINE 1000 ML 1,000 ML IV PRN (15:01)
[2018-11-14 15:18] LABS: MEAN CORPUSCULAR HEMOGLOBIN 18.4 pg (27.0-33.4); MEAN CORPUSCULAR VOLUME 61 fl (80-97); PLATELET COUNT 378 10^3/uL (150-450); RED BLOOD COUNT 4.24 10^6/uL (3.72-5.28); RED CELL DISTRIBUTION WIDTH 27.2 % (11.5-14.0); WHITE BLOOD COUNT 19.3 10^3/uL (4.0-10.5)
[2018-11-14 15:21] LABS: HEMOGLOBIN 7.8 g/dL (12.0-15.5)
--- NOTE | 2018-11-14 16:49 | RADIOLOGY REPORT (SQ) ---
EXAM DESCRIPTION: CTA CHEST COMPLETED DATE/TIME: 11/14/2018 4:13 pm REASON FOR STUDY: tachypnea, tachycardia, elevated ddimer ?PE COMPARISON: None. TECHNIQUE: CT scan of the chest performed using helical scanning technique with dynamic intravenous contrast injection. Images reviewed with lung, soft tissue and bone windows. Reconstructed coronal and sagittal MPR images reviewed. Additional 3 dimensional post-processing performed to develop Maximal Intensity Projection images (UT P). All images stored on PACS. All CT scanners at this facility use dose modulation, iterative reconstruction, and/or weight based d osing when appropriate to reduce radiation dose to as low as reasonably achievable (ALARA). [facility]: Dose Right [facility]: CareDose [facility]: Dose Right [facility]: Teradose 4D [facility]: [employer] CONTRAST TYPE AND DOSE: contrast/concentration: Isovue 350.00 mg/ml; Total Contrast Delivered: 90.0 ml; Total Saline Delivered: 110.0 ml Contrast bolus adequate for pulmonary arteries and aorta. RENAL FUNCTION: BUN 7 creatinine 0.73 RADIATION DOSE: CT Rad equipment meets quality standard of care and radiation dose reduction techniq ues were employed. CTDIvol: 33.1 - 33.1 mGy. DLP: 1161 mGy-cm. . LIMITATIONS: Opacification of the pulmonary arteries is suboptimal. FINDINGS: LUNGS AND PLEURA: No masses, infiltrates, or pneumothorax. No pleural effusions or pleura l calcifications. AORTA AND GREAT VESSELS: No aneurysm. No dissection. HEART: No pericardial effusion. No significant coronary artery calcifications. PULMONARY ARTERIES: No central pulmonary emboli. No major peripheral pulmonary emboli. HILAR AND MEDIASTINAL STRUCTURES: No identified masses or abnormal nodes. HARDWARE: None in the chest. UPPER ABDOMEN: No significant findings. Limited exam. THYROID AND OTHER SOFT TISSUES: No masses. No adenopathy. BONES: No acute or significant finding. 3D MIPS: Confirm above findings. OTHER: No other significant finding. IMPRESSION: Slightly limited study. No obvious pulmonary emboli. No aortic aneurysm or dissection. COMMENT: Quality ID # [id number]: Final reports with documentation of one or more dose reduction techniques (e.g., Automated exposure control, adjustment of the mA and/or kV according to patient size, use of iterative reconstruction technique) TECHNICAL DOCUMENTATION: JOB ID: [id number] [employer]- All Rights Reserved Reading location - IP/workstation name: [email or web address]
--- NOTE | 2018-11-14 17:39 | PDOC H&P ---
History of Present Illness Patient complains of: abdominal pain History of Present Illness: ABRIL KENDRICK is a 38 year old female with a PMH significant only for morbid obesity who presented to the emergency department with a complaint of 2 days of progressively worsening bilateral lower quadrant abdominal pain a ssociated with nausea and one episode of emesis 2 days ago. She denies fever, chills, constipation, diarrhea, melena, and hematochezia. Evaluation in the emergency department was remarkable for leukocytosis (WBC 18.8), anemia (Hgb 6.4/HCT 22.3), and an unremarkable chemistry, urinalysis, and occult stool. CT scan A/P revealed sigmoid diverticulosis, and numerous uterine fibroids. MRI of the abdomen and pelvis demonstrated inflammatory stranding around a short segment of the sigmoid colon as well as a large pedunculated fibroid in the anterior/inferior pelvis with suspicious attachment to the uterus in addition to her numerous uterine fibroids. Surgery was consulted; initially recommended patient be transferred to a tertiary care center. ED provider had difficulty finding an accepting physician to the hospitalist service was consulted for admission. Prior to admitting, ST[facility] P[facility]KER, Dr. Leon, evaluated the patient and felt that that her uterine fibroids could be managed as an outpatient following treatment for acute diverticulitis. Spoke with Dr. Echols regarding his recommendation for tertiary care center; he followed up with in-house radiology to review MRI together. Upon second review, no mucocele was identified and the pelvic mass most likely represents a pedunculated uterine fibroid although we have myosarcoma cannot definitively be ruled out. Sigmoid diverticulitis is confirmed. Dr. Echols agreed the patient could be managed at [facility] on office surgical services to continue following patient. Upon my assessment, I found the patient to be dyspneic with short/shallow respirations and a persistent respiratory rate in the mid 30s and mild tachycardia of 104. She denies history of DVT/PE, does not smoke or use control. She does have morbid obesity and frequent long distant travel as risk factors, although her last travel was mid September. D-dimer was elevated to 2.48; fortunately, follow-up CTA of the chest was negative for pulmonary embolus. Past Medical History Cardiac Medical History: Reports: None Pulmonary Medical History: Reports: None EENT Medical History: Reports: None Neurological Medical History: Reports: None Endocrine Medical History: Reports: Obesity Renal/ Medical History: Reports: None Malignancy Medical History: Reports: None GI Medical History: Reports: None Musculoskeltal Medical History: Reports: None Skin Medical History: Reports: None Psychiatric Medical History: Reports: None Traumatic Medical History: Reports: None Hematology: Reports: None Infectious Medical History: Reports: None Past Surgical History Past Surgical History: Reports: None Social History Information Source: Patient Lives with: Alone Smoking Status: Never Smoker Frequency of Alcohol Use: None Drugs: None Hx Prescription Drug Abuse: No - Advance Directive Resuscitation Status: Full Code Surrogate healthcare decision maker:: The patient's mother Family History Family History: Arthritis Parental Family History Reviewed: Yes Children Family History Reviewed: Yes Sibling(s) Family History Reviewed.: Yes Medication/Allergy Home Medications: Ibuprofen [Advil] 200 mg PO DAILYP PRN 11/14/18 Allergies/Adverse Reactions: No Known Allergies Allergy (Verified 11/13/18 15:25) Review of Systems Constitutional: ABSENT: chills, fever(s), headache(s), weight gain, weight loss Eyes: ABSENT: visual disturbances Ears: ABSENT: hearing changes Cardiovascular: ABSENT: chest pain, dyspnea on exertion, edema, orthropnea, palpitations Respiratory: PRESENT: dyspnea - On exertion. ABSENT: cough, hemoptysis Gastrointestinal: PRESENT: abdominal pain, nausea, vomiting. ABSENT: constipation, diarrhea, hematemesis, hematochezia Genitourinary: ABSENT: dysuria, hematuria Musculoskeletal: ABSENT: joint swelling Integumentary: ABSENT: rash, wounds Neurological: ABSENT: abnormal gait, abnormal speech, confusion, dizziness, focal weakness, syncope Psychiatric: ABSENT: anxiety, depression, homidical ideation, suicidal ideation Endocrine: ABSENT: cold intolerance, heat intolerance, polydipsia, polyuria Hematologic/Lymphatic: ABSENT: easy bleeding, easy bruising Physical Exam Vital Signs: Temp Pulse Resp BP Pulse Ox 98.7 F 88 33 H 126/66 H 99 11/14/18 07:46 11/14/18 00:16 11/14/18 11:01 11/14/18 11:00 11/14/18 11:01 Intake & Output 11/13/18 11/14/18 11/15/18 06:59 06:59 06:59 Intake Total 955 1251 Balance 955 1251 Weight 107 kg General appearance: PRESENT: cooperative, mild distress, morbidly obese, well- developed, well-nourished Head exam: PRESENT: atraumatic, normocephalic Eye exam: PRESENT: conjunctiva pink, EOMI, PERRLA. ABSENT: scleral icterus Ear exam: PRESENT: normal external ear exam Mouth exam: PRESENT: moist, tongue midline Neck exam: ABSENT: carotid bruit, JVD, lymphadenopathy, thyromegaly Respiratory exam: PRESENT: clear to auscultation holli, decreased breath sounds - Secondary to body habitus and poor inspiratory effort, symmetrical, tachypnea, unlabored. ABSENT: rales, rhonchi, wheezes Cardiovascular exam: PRESENT: RRR, +S1, +S2, tachycardia. ABSENT: diastolic murmur, rubs, systolic murmur Pulses: PRESENT: normal dorsalis pedis pul Vascular exam: PRESENT: normal capillary refill GI/Abdominal exam: PRESENT: hypoactive bowel sounds, soft, tenderness. ABSENT: distended, guarding, mass, organolmegaly, rebound Rectal exam: PRESENT: heme (-) stool Extremities exam: PRESENT: full ROM. ABSENT: calf tenderness, clubbing, pedal edema Neurological exam: PRESENT: alert, awake, oriented to person, oriented to place, oriented to time, oriented to situation, CN II-XII grossly intact. ABSENT: motor sensory deficit Psychiatric exam: PRESENT: appropriate affect, normal mood. ABSENT: homicidal ideation, suicidal ideation Skin exam: PRESENT: dry, intact, warm. ABSENT: cyanosis, rash Results Laboratory Results: 11/14/18 07:59 11/13/18 19:38 11/13/18 11/13/18 11/13/18 15:30 19:38 19:38 WBC 18.8 H RBC 3.99 Hgb 6.4 L Hct 22.3 L MCV 56 L MCH 16.1 L MCHC 28.8 L RDW 21.2 H Plt Count 443 Seg Neutrophils % 85.4 H Lymphocytes % 6.7 L Monocytes % 7.6 Eosinophils % 0.0 Basophils % 0.3 Absolute Neutrophils 16.1 H Absolute Lymphocytes 1.3 Absolute Monocytes 1.4 Absolute Eosinophils 0.0 Absolute Basophils 0.1 Sodium 137.7 Potassium 4.1 Chloride 104 Carbon Dioxide 20 L Anion Gap 14 BUN 7 Creatinine 0.73 Est GFR ( Amer) > 60 Est GFR (Non-Af Amer) > 60 Glucose 109 Calcium 9.5 Total Bilirubin 1.3 AST 14 ALT 15 Alkaline Phosphatase 91 Total Protein 8.1 Albumin 4.0 Lipase 47.1 Urine Color YELLOW Urine Appearance CLEAR Urine pH 6.0 Ur Specific [place] 1.004 Urine Protein NEGATIVE Urine Glucose (UA) NEGATIVE Urine Ketones NEGATIVE Urine Blood NEGATIVE Urine Nitrite NEGATIVE Ur Leukocyte Esterase NEGATIVE Urine WBC (Auto) 1 Urine RBC (Auto) 1 Blood Type Antibody Screen 11/13/18 11/14/18 20:20 07:59 WBC 17.1 H RBC 4.33 Hgb 7.8 L Hct 26.1 L MCV 60 L D MCH 18.0 L MCHC 29.8 L RDW 28.2 H Plt Count 384 Seg Neutrophils % Not Reportable Lymphocytes % Not Reportable Monocytes % Not Reportable Eosinophils % Not Reportable Basophils % Not Reportable Absolute Neutrophils Not Reportable Absolute Lymphocytes Not Reportable Absolute Monocytes Not Reportable Absolute Eosinophils Not Reportable Absolute Basophils Not Reportable Sodium Potassium Chloride Carbon Dioxide Anion Gap BUN Creatinine Est GFR ( Amer) Est GFR (Non-Af Amer) Glucose Calcium Total Bilirubin AST ALT Alkaline Phosphatase Total Protein Albumin Lipase Urine Color Urine Appearance Urine pH Ur Specific [place] Urine Protein Urine Glucose (UA) Urine Ketones Urine Blood Urine Nitrite Ur Leukocyte Esterase Urine WBC (Auto) Urine RBC (Auto) Blood Type B POSITIVE Antibody Screen NEGATIVE Impressions: Abdomen/Pelvis CT 11/13/18 20:00 IMPRESSION: Findings suspicious for acute sigmoid diverticulitis. Focus of gas density located immediately adjacent to the sigmoid colon as above described most likely corresponds to gas within a diverticula as opposed to a focus of contained perforation. No definitive areas of extraluminal free air identified. Likewise, no drainable fluid collections are apparent. Fibroid uterus. Additional multilobulated mass located adjacent to the anterior aspect of the uterine fundus potentially corresponds to a multilobulated/exophytic subserosal fibroid. However, confirmation with contrast-enhanced pelvic MR is suggested to confirm that this does not represent a solid ovarian mass or other malignancy. In addition, elements of inflammatory stranding are noted immediately adjacent to the inferior aspect of this mass though this is presumably related to the short segment of sigmoid diverticulitis. Additional ovoid fluid density located about the inferior aspect of the cecum near the base of the appendix presumably represents fluid within the cecum though technically an appendiceal mucocele could have this appearance. Consider correlation with repeat CT abdomen/pelvis with oral contrast for further assessment. TECHNICAL DOCUMENTATION: Quality ID # 436: Final reports with documentation of one or more dose reduction techniques (e.g., Automated exposure control, adjustment of the mA and/or kV according to patient size, use of iterative reconstruction technique) copyright 2011 [employer]- All Rights Reserved Pelvis MRI 11/13/18 22:08 IMPRESSION: Previously detailed large mass located about the anterior/inferior abdomen appears to correspond to a large pedunculated leiomyoma in the midst multiple additional uterine leiomyomas, as above described. Specifically, the left ovary is well visualized and appears normal, demonstrating only a few normal-appearing follicles. However, given this lesion's large size and somewhat unusual configuration, continued follow-up/gynecological consultation would be of benefit to determine appropriate management and completely exclude a more sinister process such as leiomyosarcoma. Inflammatory stranding surrounding a short segment of sigmoid colon as well as the suspected large pedunculated fibroid about the anterior/inferior pelvis. Overall, findings remain suspicious for acute sigmoid diverticulitis although technically pelvic inflammatory disease could have this appearance. Correlate. copyright 2011 [employer]- All Rights Reserved Assessment and Plan - Diagnosis (1) Sigmoid diverticulitis Is this a current diagnosis for this admission?: Yes Plan: Patient is admitted to [facility] on continuous cardiac telemetry. Blood cultures are pending. She is placed on IV Cipro and Flagyl. N.p.o. with ice chips. Analgesics and antiemetics as needed. Surgical services are consulted; greatly appreciate Dr. Echols's assistance today. (2) Anemia Qualifiers: Anemia type: unspecified type Qualified Code(s): D64.9 - Anemia, unspecified Is this a current diagnosis for this admission?: Yes Plan: Underlying cause most likely uterine given Hemoccult stool negativity. Hgb 6.4 on admission; increased to 7.8 following transfusion. Now s/p 2 units PRBC Daily CBC. Will trannsfuse for Hgb <7.0 (3) Pelvic mass in female Is this a current diagnosis for this admission?: Yes Plan: [facility] and surgical services are consulted. STAMP PAD MAKER has evaluated the patient and determined that she can follow-up as an outpatient following treatment of diverticulitis for evaluation and management of her uterine fibroids. Possibility of malignancy is considered; final determination for further evaluation per the FACILITY SUPERVISOR service. (4) Fibroid uterus Qualifiers: Uterine leiomyoma location: submucous Qualified Code(s): D25.0 - Submucous leiomyoma of uterus Is this a current diagnosis for this admission?: Yes Plan: FACILITY SUPERVISOR has been consulted; to follow-up with Dr. Leon as an outpatient following treatment of sigmoid diverticulitis. (5) Morbid obesity Is this a current diagnosis for this admission?: Yes Plan: Dietary discretion is advised. (6) Tachypnea Is this a current diagnosis for this admission?: Yes Plan: The patient is noted to have persistent tachypnea; 20-38. Heart rate 90 to 104. Maintaining oxygen saturations on room air. Chest x-ray was normal. Given the concern for possible intra-abdominal malignancy pulmonary embolus is considered. Other risk factors include morbid obesity and frequent travel (regularly drives approximately 8 hours to visit her mother; last trip appro ximately 6 weeks ago). D-dimer was elevated to 2.48. CT of the chest, however, was negative for pulmonary embolus. Possibly related to pain or body habitus. Supplemental oxygen as needed to maintain saturations >90%. As needed nebulizer treatments. - Time Time Spent with patient: 35 or more minutes Medications reviewed and adjusted accordingly: Yes Anticipated discharge: Home Within: within 48 hours - Inpatient Certification Based on my medical assessment, after consideration of the patient's comorbidities, presenting symptoms, or acuity I expect that the services needed warrant INPATIENT care.: Yes I certify that my determination is in accordance with my understanding of Medicare's requirements for reasonable and necessary INPATIENT services [42 CFR 412.3e].: Yes Medical Necessity: Need For IV Fluids, Need for IV Antibiotics, Risk of Diagnosis Which Will Require Inpatient Eval/Care/Monitoring
[2018-11-14] MEDS ORDERED: METRONIDAZOLE 500 MG/NS RTU 500 MG/100 ML RTUPB IV SCH (18:00)
[2018-11-14] MEDS: ACETAMINOPHEN 325 MG TABLET PO PRN (18:58)
[2018-11-14 20:02] LABS: CHLAM PCR NOT DETECTED (NOT DETECT)
[2018-11-14] MEDS: HEPARIN SOD (PORCINE) 5,000 UNIT/ML 1 ML SYRINGE SUBCUT SCH (22:22)
[2018-11-14] MEDS: METRONIDAZOLE 500 MG TABLET PO SCH (23:05)
[2018-11-14] MEDS: ONDANSETRON HCL INJ/PF 4 MG/2 ML SDV IV PRN (23:06)
[2018-11-15] MEDS: PROMETHAZINE HCL INJ 25 MG/1 ML VIAL IV PRN ×2 (02:17→23:13)
[2018-11-15] MEDS: HEPARIN SOD (PORCINE) 5,000 UNIT/ML 1 ML SYRINGE SUBCUT SCH ×4 (05:11→21:45)
[2018-11-15] MEDS: METRONIDAZOLE 500 MG TABLET PO SCH ×3 (05:11→17:57)
[2018-11-15] MEDS: NORMAL SALINE 1000 ML 1,000 ML IV PRN ×3 (05:12→23:27)
[2018-11-15 06:15] LABS: ABSOLUTE BASOPHILS # (AUTO) 0.1 10^3/uL (0.0-0.2); ABSOLUTE LYMPHOCYTES (AUTO) 1.2 10^3/uL (0.5-4.7); ABSOLUTE MONOCYTES (AUTO) 1.3 10^3/uL (0.1-1.4); ABSOLUTE NEUT (AUTO) 12.8 10^3/uL (1.7-8.2); BASOPHILS % (AUTO) 0.4 % (0-2); EOSINOPHILS % (AUTO) 0.2 % (0-6); HEMATOCRIT 24.5 % (36.0-47.0); LYMPHOCYTES % (AUTO) 8.1 % (13-45); MEAN CORPUSCULAR HEMOGLOBIN 18.2 pg (27.0-33.4); MEAN CORPUSCULAR VOLUME 61 fl (80-97); MONOCYTES % (AUTO) 8.5 % (3-13); PLATELET COUNT 340 10^3/uL (150-450); RED BLOOD COUNT 4.02 10^6/uL (3.72-5.28); RED CELL DISTRIBUTION WIDTH 27.1 % (11.5-14.0); SEGMENTED NEUTROPHILS % (AUTO) 82.8 % (42-78); TOTAL CELLS COUNTED % (AUTO) 100 %; WHITE BLOOD COUNT 15.5 10^3/uL (4.0-10.5)
[2018-11-15 06:21] LABS: HEMOGLOBIN 7.3 g/dL (12.0-15.5)
[2018-11-15 06:35] LABS: ANION GAP 11 (5-19); BLOOD UREA NITROGEN 8 mg/dL (7-20); CALCIUM 8.6 mg/dL (8.4-10.2); CARBON DIOXIDE 22 mmol/L (22-30); CHLORIDE 107 mmol/L (98-107); GLUCOSE 88 mg/dL (75-110); POTASSIUM 3.8 mmol/L (3.6-5.0); SODIUM 139.5 mmol/L (137-145)
[2018-11-15 06:42] LABS: ANISOCYTOSIS 2+; HYPOCHROMASIA 2+; PLATELET COMMENT ADEQUATE; POLYCHROMASIA 2+; TEAR DROP CELLS 1+
[2018-11-15] MEDS ORDERED: NORMAL SALINE 250 ML IV PRN ×2 (07:55)
[2018-11-15] MEDS: MORPHINE SULFATE 10 MG/ML INJ IV PRN (09:34)
[2018-11-15] MEDS: CIPROFLOXACIN 400 MG/D5W RTU 400 MG/200 ML RTUPB IV SCH ×2 (09:43→21:54)
[2018-11-15] MEDS: PANTOPRAZOLE SODIUM 40 MG VIAL IV SCH (09:44)
[2018-11-15] MEDS: ACETAMINOPHEN 325 MG TABLET PO PRN (11:54)
[2018-11-15] MEDS ORDERED: DIPHENHYDRAMINE HCL 50 MG/ML VIAL IV ONE (12:30)
[2018-11-15] MEDS ORDERED: ACETAMINOPHEN 650 MG SUPP.RECT PR ONE (13:00)
[2018-11-15] MEDS ORDERED: IBUPROFEN 600 MG TABLET ONE (13:05)
[2018-11-15] MEDS ORDERED: LIDOCAINE 1% INJ-PF (10 MG/ML) 30 ML SDV ONE (13:09)
--- NOTE | 2018-11-15 13:21 | RADIOLOGY REPORT (SQ) ---
EXAM DESCRIPTION: CHEST SINGLE VIEW COMPLETED DATE/TIME: 11/15/2018 1:06 pm REASON FOR STUDY: transfusion reaction, tachypnea COMPARISON: 11/14/2018 TECHNIQUE: Single frontal radiographic view of the chest acquired. NUMBER OF VIEWS: One view. LIMITATIONS: None. FINDINGS: LUNGS AND PLEURA: No pneumothorax. No consolidation or pleural effusion. MEDIASTINUM AND HILAR STRUCTURES: Stable. HEART AND VASCULAR STRUCTURES: Stable. BONES: No acute findings. HARDWARE: None in the chest. OTHER: No other significant finding. IMPRESSION: NO ACUTE FINDINGS. TECHNICAL DOCUMENTATION: JOB ID: [id number] [place]-72 2010 [employer]- All Rights Reserved Reading location - IP/workstation name: [email or web address]
[2018-11-15] MEDS ORDERED: ACETAMINOPHEN 325 MG SUPP.RECT PR ONE (13:30)
--- NOTE | 2018-11-15 13:53 | PDOC PROGRESS REPORT ---
Subjective Progress Note for:: 11/15/18 Subjective:: still with lower abd pain, no flatus Reason For Visit: ABDOMINAL PAIN,ANEMIA,DIVERTICULITIS,FIBROID UTERU Physical Exam Vital Signs: Temp Pulse Resp BP Pulse Ox 102.9 F H 101 H 16 142/80 H 96 11/15/18 12:37 11/15/18 12:37 11/15/18 12:27 11/15/18 12:37 11/15/18 12:37 Intake & Output 11/14/18 11/15/18 11/16/18 06:59 06:59 06:59 Intake Total 955 2551 250 Balance 955 2551 250 Weight 107 kg 106.2 kg General appearance: PRESENT: mild distress Head exam: PRESENT: normocephalic Eye exam: PRESENT: EOMI Ear exam: PRESENT: normal external ear exam Mouth exam: PRESENT: dry mucosa Neck exam: PRESENT: full ROM Respiratory exam: PRESENT: clear to auscultation holli Cardiovascular exam: PRESENT: RRR Pulses: PRESENT: normal carotid pulses, normal femoral pulses, normal dorsalis pedis pul GI/Abdominal exam: PRESENT: guarding, tenderness - lower abd tenderness to palpation, Rectal exam: PRESENT: deferred Extremities exam: PRESENT: full ROM Musculoskeletal exam: PRESENT: full ROM Neurological exam: PRESENT: alert, awake, oriented to person, oriented to place Skin exam: PRESENT: dry Results Laboratory Results: 11/15/18 05:56 11/15/18 05:56 11/13/18 11/14/18 11/14/18 20:20 14:50 14:50 WBC 19.3 H RBC 4.24 Hgb 7.8 L Hct 26.0 L MCV 61 L MCH 18.4 L MCHC 30.0 L RDW 27.2 H Plt Count 378 Seg Neutrophils % Lymphocytes % Monocytes % Eosinophils % Basophils % Absolute Neutrophils Absolute Lymphocytes Absolute Monocytes Absolute Eosinophils Absolute Basophils Sodium Potassium Chloride Carbon Dioxide Anion Gap BUN Creatinine Est GFR ( Amer) Est GFR (Non-Af Amer) Glucose Lactic Acid 0.9 Calcium Blood Type B POSITIVE Antibody Screen NEGATIVE 11/15/18 11/15/18 05:56 05:56 WBC 15.5 H RBC 4.02 Hgb 7.3 L Hct 24.5 L MCV 61 L MCH 18.2 L MCHC 30.0 L RDW 27.1 H Plt Count 340 Seg Neutrophils % 82.8 H Lymphocytes % 8.1 L Monocytes % 8.5 Eosinophils % 0.2 Basophils % 0.4 Absolute Neutrophils 12.8 H Absolute Lymphocytes 1.2 Absolute Monocytes 1.3 Absolute Eosinophils 0.0 Absolute Basophils 0.1 Sodium 139.5 Potassium 3.8 Chloride 107 Carbon Dioxide 22 Anion Gap 11 BUN 8 Creatinine 0.69 Est GFR ( Amer) > 60 Est GFR (Non-Af Amer) > 60 Glucose 88 Lactic Acid Calcium 8.6 Blood Type Antibody Screen Impressions: Abdomen/Pelvis CT 11/13/18 20:00 IMPRESSION: Findings suspicious for acute sigmoid diverticulitis. Focus of gas density located immediately adjacent to the sigmoid colon as above described most likely corresponds to gas within a diverticula as opposed to a focus of contained perforation. No definitive areas of extraluminal free air identified. Likewise, no drainable fluid collections are apparent. Fibroid uterus. Additional multilobulated mass located adjacent to the anterior aspect of the uterine fundus potentially corresponds to a multilobulated/exophytic subserosal fibroid. However, confirmation with contrast-enhanced pelvic MR is suggested to confirm that this does not represent a solid ovarian mass or other malignancy. In addition, elements of inflammatory stranding are noted immediately adjacent to the inferior aspect of this mass though this is presumably related to the short segment of sigmoid diverticulitis. Additional ovoid fluid density located about the inferior aspect of the cecum near the base of the appendix presumably represents fluid within the cecum though technically an appendiceal mucocele could have this appearance. Consider correlation with repeat CT abdomen/pelvis with oral contrast for further assessment. TECHNICAL DOCUMENTATION: Quality ID # 436: Final reports with documentation of one or more dose reduction techniques (e.g., Automated exposure control, adjustment of the mA and/or kV according to patient size, use of iterative reconstruction technique) copyright 2011 [employer]- All Rights Reserved Pelvis MRI 11/13/18 22:08 IMPRESSION: Previously detailed large mass located about the anterior/inferior abdomen appears to correspond to a large pedunculated leiomyoma in the midst multiple additional uterine leiomyomas, as above described. Specifically, the left ovary is well visualized and appears normal, demonstrating only a few normal-appearing follicles. However, given this lesion's large size and somewhat unusual configuration, continued follow-up/gynecological consultation would be of benefit to determine appropriate management and completely exclude a more sinister process such as leiomyosarcoma. Inflammatory stranding surrounding a short segment of sigmoid colon as well as the suspected large pedunculated fibroid about the anterior/inferior pelvis. Overall, findings remain suspicious for acute sigmoid diverticulitis although technically pelvic inflammatory disease could have this appearance. Correlate. copyright 2011 [employer]- All Rights Reserved Chest/Abdomen CTA 11/14/18 00:00 IMPRESSION: Slightly limited study. No obvious pulmonary emboli. No aortic aneurysm or dissection. Chest X-Ray 11/15/18 00:00 IMPRESSION: NO ACUTE FINDINGS. Assessment & Plan - Diagnosis (1) Diverticulitis Is this a current diagnosis for this admission?: Yes - Plan Summary Plan Summary: short segment diverticulitis stll with abd pain no stool or flatus cont npo cont iv abx.
--- NOTE | 2018-11-15 13:54 | Operative Report ---
Nonrecallable Operative Report DATE OF SURGERY: 11/15/18 PREOPERATIVE DIAGNOSIS: diverticulitis POSTOPERATIVE DIAGNOSIS: diverticulitis OPERATION: rt internal jugular line placemnt SURGEON: ROBINSON RAI ANESTHESIA: Local COMPLICATIONS: none INTRAOPERATIVE FINDINGS: see dictation PROCEDURE: see dictation
--- NOTE | 2018-11-15 14:10 | RADIOLOGY REPORT (SQ) ---
EXAM DESCRIPTION: CHEST SINGLE VIEW COMPLETED DATE/TIME: 11/15/2018 1:56 pm REASON FOR STUDY: central line placement COMPARISON: 11/15/2018 at 1300 hours NUMBER OF VIEWS: One view. TECHNIQUE: Single frontal radiographic view of the chest acquired. LIMITATIONS: None. FINDINGS: Central venous access catheter placed via right IJ approach. Catheter tip overlies the S VC near- above the level of the evangelina. No pneumothorax. Radiographic appearance of the chest otherw ise stable. IMPRESSION: Central venous access catheter placed via right IJ approach. Catheter tip overlies the SVC near- above the level of the evangelina. No pneumothorax. Radiographic appearance of the chest otherw ise stable. TECHNICAL DOCUMENTATION: JOB ID: [id number] [place]-72 2010 [employer]- All Rights Reserved Reading location - IP/workstation name: [email or web address]
[2018-11-15 14:42] LABS: PRE-TRANSFUSION TOTAL BILI. 4.8 mg/dL (0.2-1.3)
--- NOTE | 2018-11-15 15:04 | PDOC PROGRESS REPORT ---
Subjective Progress Note for:: 11/15/18 Subjective:: ABRIL KENDRICK is a 38 year old female with a PMH significant only for morbid obesity who was admitted 11/15/2018 for acute sigmoid diverticulitis. Patient was seen on morning rounds. She found resting in bed on room air. She continues to have abdominal discomfort that is constant with intermittent spasms of worsened pain. She reports that she had a small diarrhea bowel movement that was preceded by agonizing discomfort but since then has not had any further bowel movements or passed gas. She does report mild nausea but no emesis. She otherwise denies chest pain, palpitations, dyspnea, orthopnea, cough. Reason For Visit: ABDOMINAL PAIN,ANEMIA,DIVERTICULITIS,FIBROID UTERU Physical Exam Vital Signs: Temp Pulse Resp BP Pulse Ox 102.6 F H 112 H 24 H 129/67 H 96 11/15/18 14:00 11/15/18 14:00 11/15/18 14:00 11/15/18 14:00 11/15/18 14:00 Intake & Output 11/14/18 11/15/18 11/16/18 06:59 06:59 06:59 Intake Total 955 2551 1250 Balance 955 2551 1250 Weight 107 kg 106.2 kg General appearance: PRESENT: mild distress, morbidly obese, well-developed, well-nourished Head exam: PRESENT: atraumatic, normocephalic Eye exam: PRESENT: conjunctiva pink, EOMI, PERRLA. ABSENT: scleral icterus Ear exam: PRESENT: normal external ear exam Mouth exam: PRESENT: moist, tongue midline Neck exam: ABSENT: carotid bruit, JVD, lymphadenopathy, thyromegaly Respiratory exam: PRESENT: clear to auscultation holli, decreased breath sounds - secondary to body habitus and poor inspiratory effort, symmetrical, tachypnea - shallow, unlabored. ABSENT: rales, rhonchi, wheezes Cardiovascular exam: PRESENT: RRR, +S1, +S2, tachycardia. ABSENT: diastolic murmur, rubs, systolic murmur Pulses: PRESENT: normal dorsalis pedis pul Vascular exam: PRESENT: normal capillary refill GI/Abdominal exam: PRESENT: distended, hypoactive bowel sounds, soft, tenderness - R>L. ABSENT: guarding, mass, organolmegaly, rebound Rectal exam: PRESENT: deferred Extremities exam: PRESENT: full ROM. ABSENT: calf tenderness, clubbing, pedal edema Neurological exam: PRESENT: alert, awake, oriented to person, oriented to place, oriented to time, oriented to situation, CN II-XII grossly intact. ABSENT: motor sensory deficit Psychiatric exam: PRESENT: anxious, appropriate affect, normal mood. ABSENT: homicidal ideation, suicidal ideation Skin exam: PRESENT: dry, intact, warm. ABSENT: cyanosis, rash Results Laboratory Results: 11/15/18 05:56 11/15/18 05:56 11/13/18 11/14/18 11/14/18 20:20 14:50 14:50 WBC 19.3 H RBC 4.24 Hgb 7.8 L Hct 26.0 L MCV 61 L MCH 18.4 L MCHC 30.0 L RDW 27.2 H Plt Count 378 Seg Neutrophils % Lymphocytes % Monocytes % Eosinophils % Basophils % Absolute Neutrophils Absolute Lymphocytes Absolute Monocytes Absolute Eosinophils Absolute Basophils Sodium Potassium Chloride Carbon Dioxide Anion Gap BUN Creatinine Est GFR ( Amer) Est GFR (Non-Af Amer) Glucose Lactic Acid 0.9 Calcium Blood Type B POSITIVE Antibody Screen NEGATIVE 11/15/18 11/15/18 05:56 05:56 WBC 15.5 H RBC 4.02 Hgb 7.3 L Hct 24.5 L MCV 61 L MCH 18.2 L MCHC 30.0 L RDW 27.1 H Plt Count 340 Seg Neutrophils % 82.8 H Lymphocytes % 8.1 L Monocytes % 8.5 Eosinophils % 0.2 Basophils % 0.4 Absolute Neutrophils 12.8 H Absolute Lymphocytes 1.2 Absolute Monocytes 1.3 Absolute Eosinophils 0.0 Absolute Basophils 0.1 Sodium 139.5 Potassium 3.8 Chloride 107 Carbon Dioxide 22 Anion Gap 11 BUN 8 Creatinine 0.69 Est GFR ( Amer) > 60 Est GFR (Non-Af Amer) > 60 Glucose 88 Lactic Acid Calcium 8.6 Blood Type Antibody Screen Impressions: Abdomen/Pelvis CT 11/13/18 20:00 IMPRESSION: Findings suspicious for acute sigmoid diverticulitis. Focus of gas density located immediately adjacent to the sigmoid colon as above described most likely corresponds to gas within a diverticula as opposed to a focus of contained perforation. No definitive areas of extraluminal free air identified. Likewise, no drainable fluid collections are apparent. Fibroid uterus. Additional multilobulated mass located adjacent to the anterior aspect of the uterine fundus potentially corresponds to a multilobulated/exophytic subserosal fibroid. However, confirmation with contrast-enhanced pelvic MR is suggested to confirm that this does not represent a solid ovarian mass or other malignancy. In addition, elements of inflammatory stranding are noted immediately adjacent to the inferior aspect of this mass though this is presumably related to the short segment of sigmoid diverticulitis. Additional ovoid fluid density located about the inferior aspect of the cecum near the base of the appendix presumably represents fluid within the cecum though technically an appendiceal mucocele could have this appearance. Consider correlation with repeat CT abdomen/pelvis with oral contrast for further assessment. TECHNICAL DOCUMENTATION: Quality ID # 436: Final reports with documentation of one or more dose reduction techniques (e.g., Automated exposure control, adjustment of the mA and/or kV according to patient size, use of iterative reconstruction technique) copyright 2011 [employer]- All Rights Reserved Pelvis MRI 11/13/18 22:08 IMPRESSION: Previously detailed large mass located about the anterior/inferior abdomen appears to correspond to a large pedunculated leiomyoma in the midst multiple additional uterine leiomyomas, as above described. Specifically, the left ovary is well visualized and appears normal, demonstrating only a few normal-appearing follicles. However, given this lesion's large size and somewhat unusual configuration, continued follow-up/gynecological consultation would be of benefit to determine appropriate management and completely exclude a more sinister process such as leiomyosarcoma. Inflammatory stranding surrounding a short segment of sigmoid colon as well as the suspected large pedunculated fibroid about the anterior/inferior pelvis. Overall, findings remain suspicious for acute sigmoid diverticulitis although technically pelvic inflammatory disease could have this appearance. Correlate. copyright 2010 [employer]- All Rights Reserved Chest/Abdomen CTA 11/14/18 00:00 IMPRESSION: Slightly limited study. No obvious pulmonary emboli. No aortic aneurysm or dissection. Chest X-Ray 11/15/18 00:00 IMPRESSION: Central venous access catheter placed via right IJ approach. Catheter tip overlies the SVC near- above the level of the evangelina. No pneumothorax. Radiographic appearance of the chest otherwise stable. Assessment and Plan - Diagnosis (1) Sigmoid diverticulitis Is this a current diagnosis for this admission?: Yes Plan: Patient is admitted to [facility] on continuous cardiac telemetry. Blood cultures are negative at 24 hours. Repeat blood cultures are pending. Leukocytosis is improved, now febrile (though considering transfusion reaction) Continue on IV Cipro and Flagyl; day #2. N.p.o. with ice chips. Analgesics and antiemetics as needed. Surgical services are consulted; appreciate their assistance. (2) Anemia Qualifiers: Anemia type: unspecified type Qualified Code(s): D64.9 - Anemia, unspeci fied Is this a current diagnosis for this admission?: Yes Plan: Iron deficiency anemia; underlying cause most likely uterine. Patient reports irregular and heavy menses. Hemoccult stool negative. Hgb 6.4 -> 7.8 (s/p 2 units)-> 7.8-> 7.3 Now s/p 2 units PRBC Daily CBC. Will trannsfuse for Hgb <8.0 or signs of active bleeding (3) Pelvic mass in female Is this a current diagnosis for this admission?: Yes Plan: SEASONAL SALES ASSOCIATE and surgical services are consulted. SEASONAL SALES ASSOCIATE has evaluated the patient and determined that she can follow-up as an outpatient following treatment of diverticulitis for evaluation and management of her uterine fibroids. Possibility of malignancy is considered; final determination for further evaluation per the [employer] service. (4) Fibroid uterus Qualifiers: Uterine leiomyoma location: submucous Qualified Code(s): D25.0 - Submucous leiomyoma of uterus Is this a current diagnosis for this admission?: Yes Plan: TER[employer] COT[employer]TER has been consulted; to follow-up with Dr. Leon as an outpatient following treatment of sigmoid diverticulitis. (5) Morbid obesity Is this a current diagnosis for this admission?: Yes Plan: Dietary discretion is advised. (6) Tachypnea Is this a current diagnosis for this admission?: Yes Plan: The patient is noted to have persistent tachypnea; 20-38. Heart rate 90 to 104. Maintaining oxygen saturations on room air. Chest x-ray was normal. Given the concern for possible intra-abdominal malignancy, pulmonary embolus is considered. Other risk factors include morbid obesity and frequent travel (regularly drives approximately 8 hours to visit her mother; last trip a pproximately 6 weeks ago). D-dimer was elevated to 2.48. CTA Chest, however, was negative for pulmonary embolus. Possibly related to anemia, pain or body habitus. Supplemental oxygen as needed to maintain saturations >90%. As needed nebulizer treatments. (7) Transfusion reaction Qualifiers: Encounter type: initial encounter Qualified Code(s): T80.92XA - Unspecified transfusion reaction, initial encounter Is this a current diagnosis for this admission?: Yes Plan: Patient developed transfusion reaction during first 15 min of PRBC transfusion today. Nursing noted increased HR (70-> 93-> 104), RR (18-> 36-> 40), Temperature (98.1-> 99.9-> 102.9), w/ brief decreased BP. Transfusion stopped and lab notified. Laboratory evaluation is pending. CXR is benign. Tylenol 975 mg p.o. and Benadryl 25 mg IV now. Motrin 600 mg p.o. x1 r/t persistently elevated temperature. Continue maintenance IVF. Close vital sign monitoring. No indications for epinephrine at this time. We will need to premedicate with Tylenol and Benadryl prior to further blood products. - Time Time Spent with patient: 25-34 minutes Total Critical Time (Minutes): 20 Medications reviewed and adjusted accordingly: Yes Anticipated discharge: Home
[2018-11-15 16:19] LABS: APPEARANCE,URINE SLIGHTLY-CLOUDY; BILIRUBIN,URINE SMALL (NEGATIVE); COLOR,URINE AMBER; GLUCOSE, URINE NEGATIVE (NEGATIVE); KETONES,URINE 80 mg/dL (NEGATIVE); LEUKOCYTE ESTERASE,URINE SMALL (NEGATIVE); NITRITE,URINE NEGATIVE (NEGATIVE); PROTEIN,URINE 30 mg/dL (NEGATIVE); URINE SPECIFIC GRAVITY 1.024
[2018-11-15] MEDS ORDERED: DIPHENHYDRAMINE HCL 25 MG CAPSULE PO PRN (17:59)
[2018-11-15] MEDS ORDERED: ACETAMINOPHEN 325 MG TABLET PO PRN (17:59)
--- NOTE | 2018-11-15 18:50 | OPERATIVE REPORT E ---
Operative Report NAME: ABRIL KENDRICK : 1980 AGE: 38Y DATE OF SURGERY: 11/15/2018 ROOM: 325 PREOPERATIVE DIAGNOSIS: DIVERTICULITIS. POSTOPERATIVE DIAGNOSIS: DIVERTICULITIS. OPERATION: Right internal jugular line placement for IV access. SURGEON: ROBINSON RAI M.D. INDICATIONS FOR PROCEDURE: This is a 38-year-old female who has been admitted to the hospital for a perforated diverticulitis. She requires IV antibiotics and IV hydration. However, it has been reported by the nurses that they cannot obtain peripheral IV access and, therefore, request central line placement. PROCEDURE IN DETAIL: The risks and benefits were discussed with the patient. Her right neck was prepped and draped in the usual sterile fashion. After appropriate timeout and site verification using 0.5% lidocaine plain the area over the right internal jugular vein was anesthetized and then the vein was isolated with a fine Veress needle, a 22 gauge needle. Once this accomplished a large Intracath was used to cannulate the vein and the needle was removed, the catheter was placed into the right internal jugular vein. The wire was placed through the catheter into the superior vena cava and a dilator was then utilized to dilate the track. A 16 Irish triple-lumen catheter was then placed over the wire into the superior vena cava and then fixed in place to the skin with 2 stitches of 2-0 Silk. A sterile dressing was applied, which completed the procedure. Estimated blood loss was less than 2 mL. Sponge and needle counts were correct x2. A chest x-ray is pending. DICTATING PHYSICIAN: ROBINSON RAI M.D. [id number] PHY#: [id number] ID: [id number] JOB#: [id number] ACCT: [id number] cc:ROBINSON RAI M.D. >
[2018-11-15 19:45] LABS: ABSOLUTE RETICS # 0.067 10^6/uL (0.028-0.122); RETICULOCYTE COUNT (AUTO) 1.69 % (0.66-2.85)
[2018-11-15 19:58] LABS: IRON(TIBC) 10.2 ug/dL (37-170)
[2018-11-15] MEDS ORDERED: SIMETHICONE 80 MG TAB.CHEW PO PRN (21:32)
[2018-11-16] MEDS: METRONIDAZOLE 500 MG TABLET PO SCH ×4 (00:08→17:54)
[2018-11-16] MEDS: HEPARIN SOD (PORCINE) 5,000 UNIT/ML 1 ML SYRINGE SUBCUT SCH ×3 (05:53→21:19)
[2018-11-16 06:17] LABS: HEMATOCRIT 25.1 % (36.0-47.0); MEAN CORPUSCULAR HEMOGLOBIN 18.1 pg (27.0-33.4); MEAN CORPUSCULAR HGB CONC 29.5 g/dL (32.0-36.0); MEAN CORPUSCULAR VOLUME 61 fl (80-97); PLATELET COUNT 329 10^3/uL (150-450); RED BLOOD COUNT 4.08 10^6/uL (3.72-5.28); RED CELL DISTRIBUTION WIDTH 28.7 % (11.5-14.0); WHITE BLOOD COUNT 12.4 10^3/uL (4.0-10.5)
[2018-11-16 06:33] LABS: HEMOGLOBIN 7.4 g/dL (12.0-15.5)
[2018-11-16 06:39] LABS: ABSOLUTE LYMPHOCYTES# (MANUAL) 0.4 10^3/uL (0.5-4.7); ABSOLUTE MONOCYTES # (MANUAL) 0.4 10^3/uL (0.1-1.4); BAND NEUTROPHILS % (MANUAL) 4 % (3-5); BASOPHILS % (MANUAL) 0 % (0-2); EOSINOPHILS % (MANUAL) 0 % (0-6); LYMPHOCYTES % (MANUAL) 3 % (13-45); MONOCYTES % (MANUAL) 3 % (3-13); SEGMENTED NEUTROPHILS % (MAN) 90 % (42-78); TOTAL CELLS COUNTED 100
[2018-11-16 06:42] LABS: ANION GAP 11 (5-19); BLOOD UREA NITROGEN 9 mg/dL (7-20); CALCIUM 8.4 mg/dL (8.4-10.2); CARBON DIOXIDE 21 mmol/L (22-30); CHLORIDE 108 mmol/L (98-107); GLUCOSE 111 mg/dL (75-110); POTASSIUM 3.9 mmol/L (3.6-5.0); SODIUM 139.8 mmol/L (137-145)
[2018-11-16 06:44] LABS: PLATELET COMMENT ADEQUATE
[2018-11-16 06:45] LABS: ANISOCYTOSIS 2+; HYPOCHROMASIA 2+; POIKILOCYTOSIS SLIGHT; POLYCHROMASIA SLIGHT; TARGET CELLS 1+
[2018-11-16] MEDS: NORMAL SALINE 1000 ML 1,000 ML IV PRN ×2 (08:38→16:17)
[2018-11-16] MEDS: MORPHINE SULFATE 10 MG/ML INJ IV PRN ×2 (08:44→16:09)
[2018-11-16] MEDS: CIPROFLOXACIN 400 MG/D5W RTU 400 MG/200 ML RTUPB IV SCH ×2 (11:21→21:18)
[2018-11-16] MEDS: PANTOPRAZOLE SODIUM 40 MG VIAL IV SCH (11:21)
--- NOTE | 2018-11-16 15:10 | PDOC PROGRESS REPORT ---
Subjective Progress Note for:: 11/16/18 Subjective:: ABRIL KENDRICK is a 38 year old female with a PMH significant only for morbid obesity who was admitted 11/15/2018 for acute sigmoid diverticulitis. Patient was seen on morning rounds. She found resting in bed on room air. She continues to have abdominal discomfort that is constant with intermittent spasms of worsened pain. She reports that she has passed gas yesterday morning and has not had a bowel movement since that time either. She reports that her diet was advanced to clear liquids (?) yesterday evening and that she had several episodes of emesis following attempt to drink apple juice. She reports some dry heaving but without emesis this morning. She is returned to n.p.o. with ice chips only. She did continue to have low-grade temperature overnight without chills or rigors. She also reports that she has begun her menses today; and reports related abdominal cramping. Otherwise, she denies headache, dizziness, chest pain, palpitations, dyspnea, orthopnea and cough. She has no questions or concerns at this time. Reason For Visit: ABDOMINAL PAIN,ANEMIA,DIVERTICULITIS,FIBROID UTERU Physical Exam Vital Signs: Temp Pulse Resp BP Pulse Ox 98.1 F 86 16 115/64 98 11/16/18 11:01 11/16/18 14:00 11/16/18 11:01 11/16/18 11:01 11/16/18 11:01 Intake & Output 11/15/18 11/16/18 11/17/18 06:59 06:59 06:59 Intake Total 2551 2450 1260 Balance 2551 2450 1260 Weight 106.2 kg 109.4 kg General appearance: PRESENT: no acute distress, morbidly obese, well-developed, well-nourished Head exam: PRESENT: atraumatic, normocephalic Eye exam: PRESENT: conjunctiva pink, EOMI, PERRLA. ABSENT: scleral icterus Ear exam: PRESENT: normal external ear exam Mouth exam: PRESENT: moist, tongue midline Neck exam: ABSENT: carotid bruit, JVD, lymphadenopathy, thyromegaly Respiratory exam: PRESENT: clear to auscultation holli, decreased breath sounds - secondary to body habitus and poor inspiratory effort, symmetrical, unlabored. ABSENT: rales, rhonchi, wheezes Cardiovascular exam: PRESENT: RRR. ABSENT: diastolic murmur, rubs, systolic murmur Pulses: PRESENT: normal dorsalis pedis pul Vascular exam: PRESENT: normal capillary refill GI/Abdominal exam: PRESENT: hypoactive bowel sounds, soft, tenderness. ABSENT: distended, guarding, mass, organolmegaly, rebound Extremities exam: PRESENT: full ROM. ABSENT: calf tenderness, clubbing, pedal edema Musculoskeletal exam: PRESENT: ambulatory Neurological exam: PRESENT: alert, awake, oriented to person, oriented to place, oriented to time, oriented to situation, CN II-XII grossly intact. ABSENT: motor sensory deficit Psychiatric exam: PRESENT: appropriate affect, normal mood. ABSENT: homicidal ideation, suicidal ideation Skin exam: PRESENT: dry, intact, warm. ABSENT: cyanosis, rash Results Laboratory Results: 11/16/18 06:00 11/16/18 06:00 11/13/18 11/15/18 11/15/18 20:20 05:56 05:56 WBC RBC Hgb Hct MCV MCH MCHC RDW Plt Count Seg Neutrophils % Lymphocytes % Monocytes % Eosinophils % Basophils % Absolute Neutrophils Absolute Lymphocytes Absolute Monocytes Absolute Eosinophils Absolute Basophils Retic Count (auto) 1.69 Absolute Retic 0.067 Sodium Potassium Chloride Carbon Dioxide Anion Gap BUN Creatinine Est GFR ( Amer) Est GFR (Non-Af Amer) Glucose Calcium Iron 10.2 L TIBC 298 % Saturation 3 Ferritin 83.90 Vitamin B12 > 1000.0 H Folate 18.80 Urine Color Urine Appearance Urine pH Ur Specific [place] Urine Protein Urine Glucose (UA) Urine Ketones Urine Blood Urine Nitrite Ur Leukocyte Esterase Ur 24 Hour Volume Blood Type B POSITIVE Antibody Screen NEGATIVE 11/15/18 11/16/18 11/16/18 16:03 06:00 06:00 WBC 12.4 H RBC 4.08 Hgb 7.4 L Hct 25.1 L MCV 61 L MCH 18.1 L MCHC 29.5 L RDW 28.7 H Plt Count 329 Seg Neutrophils % Not Reportable Lymphocytes % Not Reportable Monocytes % Not Reportable Eosinophils % Not Reportable Basophils % Not Reportable Absolute Neutrophils Not Reportable Absolute Lymphocytes Not Reportable Absolute Monocytes Not Reportable Absolute Eosinophils Not Reportable Absolute Basophils Not Reportable Retic Count (auto) Absolute Retic Sodium 139.8 Potassium 3.9 Chloride 108 H Carbon Dioxide 21 L Anion Gap 11 BUN 9 Creatinine 0.70 Est GFR ( Amer) > 60 Est GFR (Non-Af Amer) > 60 Glucose 111 H Calcium 8.4 Iron TIBC % Saturation Ferritin Vitamin B12 Folate Urine Color THIAGO Urine Appearance SLIGHTLY-CLOUDY Urine pH 5.0 Ur Specific [place]rum 1.024 Urine Protein 30 H Urine Glucose (UA) NEGATIVE Urine Ketones 80 H Urine Blood NEGATIVE Urine Nitrite NEGATIVE Ur Leukocyte Esterase SMALL H Ur 24 Hour Volume Cancelled Blood Type Antibody Screen Impressions: Abdomen/Pelvis CT 11/13/18 20:00 IMPRESSION: Findings suspicious for acute sigmoid diverticulitis. Focus of gas density located immediately adjacent to the sigmoid colon as above described most likely corresponds to gas within a diverticula as opposed to a focus of contained perforation. No definitive areas of extraluminal free air identified. Likewise, no drainable fluid collections are apparent. Fibroid uterus. Additional multilobulated mass located adjacent to the anterior aspect of the uterine fundus potentially corresponds to a multilobulated/exophytic subserosal fibroid. However, confirmation with contrast-enhanced pelvic MR is suggested to confirm that this does not represent a solid ovarian mass or other malignancy. In addition, elements of inflammatory stranding are noted immediately adjacent to the inferior aspect of this mass though this is presumably related to the short segment of sigmoid diverticulitis. Additional ovoid fluid density located about the inferior aspect of the cecum near the base of the appendix presumably represents fluid within the cecum though technically an appendiceal mucocele could have this appearance. Consider correlation with repeat CT abdomen/pelvis with oral contrast for further assessment. TECHNICAL DOCUMENTATION: Quality ID # [id number]: Final reports with documentation of one or more dose reduction techniques (e.g., Automated exposure control, adjustment of the mA and/or kV according to patient size, use of iterative reconstruction technique) copyright 2011 [employer]- All Rights Reserved Pelvis MRI 11/13/18 22:08 IMPRESSION: Previously detailed large mass located about the anterior/inferior abdomen appears to correspond to a large pedunculated leiomyoma in the midst multiple additional uterine leiomyomas, as above described. Specifically, the left ovary is well visualized and appears normal, demonstrating only a few normal-appearing follicles. However, given this lesion's large size and somewhat unusual configuration, continued follow-up/gynecological consultation would be of benefit to determine appropriate management and completely exclude a more sinister process such as leiomyosarcoma. Inflammatory stranding surrounding a short segment of sigmoid colon as well as the suspected large pedunculated fibroid about the anterior/inferior pelvis. Overall, findings remain suspicious for acute sigmoid diverticulitis although technically pelvic inflammatory disease could have this appearance. Correlate. copyright 2010 [email or web address]- All Rights Reserved Chest/Abdomen CTA 11/14/18 00:00 IMPRESSION: Slightly limited study. No obvious pulmonary emboli. No aortic aneurysm or dissection. Chest X-Ray 11/15/18 00:00 IMPRESSION: Central venous access catheter placed via right IJ approach. Catheter tip overlies the SVC near- above the level of the evangelina. No pneumothorax. Radiographic appearance of the chest otherwise stable. Assessment and Plan - Diagnosis (1) Sigmoid diverticulitis Is this a current diagnosis for this admission?: Yes Plan: Patient is admitted to [facility] on continuous cardiac telemetry. Blood cultures are negative at 24 hours. Repeat blood cultures are pending. Leukocytosis continues to improved. TMax 102.9 in last 24 hours. Continue on IV Cipro and Flagyl; day #3. N.p.o. with ice chips. Analgesics and antiemetics as needed. Surgical services are consulted; appreciate their assistance. (2) Anemia Qualifiers: Anemia type: unspecified type Qualified Code(s): D64.9 - Anemia, unspecified Is this a current diagnosis for this admission?: Yes Plan: Iron deficiency anemia; underlying cause most likely uterine. Patient reports irregular and heavy menses. Hemoccult stool negative. Hgb 6.4 -> 7.8 (s/p 2 units)-> 7.8-> 7.3-> 7.4 Now s/p 2 units PRBC (TAR inaccurately reports 4 units transfused) Anemia panel demonstrated iron deficiency. Daily CBC. Start MVI and iron supplementation once passing gas/having bm secondary to constipating properties. Consider iron infusion. (3) Pelvic mass in female Is this a current diagnosis for this admission?: Yes Plan: HAND TWISTER and surgical services are consulted. HAND TWISTER has evaluated the patient and determined that she can follow-up as an outpatient following treatment of diverticulitis for evaluation and management of her uterine fibroids. Possibility of malignancy is considered; final determination for further evaluation per the [employer] service. (4) Fibroid uterus Qualifiers: Uterine leiomyoma location: submucous Qualified Code(s): D25.0 - Submucous leiomyoma of uterus Is this a current diagnosis for this admission?: Yes Plan: MENU PLANNER has been consulted; to follow-up with Dr. Leon as an outpatient following treatment of sigmoid diverticulitis. (5) Morbid obesity Is this a current diagnosis for this admission?: Yes Plan: Dietary discretion is advised. (6) Tachypnea Is this a current diagnosis for this admission?: Yes Plan: Improved; now w/ intermittent tachypnea. Maintaining oxygen saturations on room air. Possibly related to anemia, pain or body habitus. Chest x-ray was normal. Given the concern for possible intra-abdominal malignancy, pulmonary embolus is considered. Other risk factors include morbid obesity and frequent travel (regularly drives approximately 8 hours to visit her mother; last trip approximately 6 weeks ago). D-dimer was elevated to 2.48. CTA Chest, however, was negative for pulmonary embolus. Supplemental oxygen as needed to maintain saturations >90%. As needed nebulizer treatments. (7) Transfusion reaction Qualifiers: Encounter type: initial encounter Qualified Code(s): T80.92XA - Unspecified transfusion reaction, initial encounter Is this a current diagnosis for this admission?: Yes Plan: Ruled out. Patient developed transfusion reaction during first 15 min of PRBC transfusion today. Nursing noted increased HR (70-> 93-> 104), RR (18-> 36-> 40), Temperature (98.1-> 99.9-> 102.9), w/ brief decreased BP. Transfusion stopped and lab notified. Laboratory evaluation is nml; pathologist did not find evidence of transfusion reaction. CXR is benign. Tylenol 975 mg p.o. and Benadryl 25 mg IV x1 Motrin 600 mg p.o. x1 r/t persistently elevated temperature. Continue maintenance IVF. Close vital sign monitoring. No indications for epinephrine at this time. We will need to pre-medicate with Tylenol and Benadryl prior to further blood products. - Time Time Spent with patient: 25-34 minutes Medications reviewed and adjusted accordingly: Yes Anticipated discharge: Home
--- NOTE | 2018-11-16 15:34 | PDOC PROGRESS REPORT ---
Subjective Progress Note for:: 11/16/18 Subjective:: feels ok at rest describes pain a a level 3 with walking had nausea and vomiting after apple juice taking sips of water\ has not had a bm Reason For Visit: ABDOMINAL PAIN,ANEMIA,DIVERTICULITIS,FIBROID UTERU Physical Exam Vital Signs: Temp Pulse Resp BP Pulse Ox 98.1 F 86 16 115/64 98 11/16/18 11:01 11/16/18 14:00 11/16/18 11:01 11/16/18 11:01 11/16/18 11:01 Intake & Output 11/15/18 11/16/18 11/17/18 06:59 06:59 06:59 Intake Total 2551 2450 1260 Balance 2551 2450 1260 Weight 106.2 kg 109.4 kg General appearance: PRESENT: mild distress Head exam: PRESENT: normocephalic Eye exam: PRESENT: EOMI Mouth exam: PRESENT: moist Neck exam: PRESENT: full ROM Respiratory exam: PRESENT: clear to auscultation holli Cardiovascular exam: PRESENT: RRR Pulses: PRESENT: normal radial pulses, normal femoral pulses GI/Abdominal exam: PRESENT: hypoactive bowel sounds, tenderness - tenderness lower abd with radiation to left Rectal exam: PRESENT: deferred Extremities exam: PRESENT: full ROM Musculoskeletal exam: PRESENT: full ROM Neurological exam: PRESENT: alert, awake, oriented to person, oriented to place Skin exam: PRESENT: dry Results Laboratory Results: 11/16/18 06:00 11/16/18 06:00 11/13/18 11/15/18 11/15/18 20:20 05:56 05:56 WBC RBC Hgb Hct MCV MCH MCHC RDW Plt Count Seg Neutrophils % Lymphocytes % Monocytes % Eosinophils % Basophils % Absolute Neutrophils Absolute Lymphocytes Absolute Monocytes Absolute Eosinophils Absolute Basophils Retic Count (auto) 1.69 Absolute Retic 0.067 Sodium Potassium Chloride Carbon Dioxide Anion Gap BUN Creatinine Est GFR ( Amer) Est GFR (Non-Af Amer) Glucose Calcium Iron 10.2 L TIBC 298 % Saturation 3 Ferritin 83.90 Vitamin B12 > 1000.0 H Folate 18.80 Urine Color Urine Appearance Urine pH Ur Specific Bone Gap Urine Protein Urine Glucose (UA) Urine Ketones Urine Blood Urine Nitrite Ur Leukocyte Esterase Ur 24 Hour Volume Blood Type B POSITIVE Antibody Screen NEGATIVE 11/15/18 11/16/18 11/16/18 16:03 06:00 06:00 WBC 12.4 H RBC 4.08 Hgb 7.4 L Hct 25.1 L MCV 61 L MCH 18.1 L MCHC 29.5 L RDW 28.7 H Plt Count 329 Seg Neutrophils % Not Reportable Lymphocytes % Not Reportable Monocytes % Not Reportable Eosinophils % Not Reportable Basophils % Not Reportable Absolute Neutrophils Not Reportable Absolute Lymphocytes Not Reportable Absolute Monocytes Not Reportable Absolute Eosinophils Not Reportable Absolute Basophils Not Reportable Retic Count (auto) Absolute Retic Sodium 139.8 Potassium 3.9 Chloride 108 H Carbon Dioxide 21 L Anion Gap 11 BUN 9 Creatinine 0.70 Est GFR ( Amer) > 60 Est GFR (Non-Af Amer) > 60 Glucose 111 H Calcium 8.4 Iron TIBC % Saturation Ferritin Vitamin B12 Folate Urine Color THIAGO Urine Appearance SLIGHTLY-CLOUDY Urine pH 5.0 Ur Specific Bone Gap 1.024 Urine Protein 30 H Urine Glucose (UA) NEGATIVE Urine Ketones 80 H Urine Blood NEGATIVE Urine Nitrite NEGATIVE Ur Leukocyte Esterase SMALL H Ur 24 Hour Volume Cancelled Blood Type Antibody Screen Impressions: Abdomen/Pelvis CT 11/13/18 20:00 IMPRESSION: Findings suspicious for acute sigmoid diverticulitis. Focus of gas density located immediately adjacent to the sigmoid colon as above described most likely corresponds to gas within a diverticula as opposed to a focus of contained perforation. No definitive areas of extraluminal free air identified. Likewise, no drainable fluid collections are apparent. Fibroid uterus. Additional multilobulated mass located adjacent to the anterior aspect of the uterine fundus potentially corresponds to a multilobulated/exophytic subserosal fibroid. However, confirmation with contrast-enhanced pelvic MR is suggested to confirm that this does not represent a solid ovarian mass or other malignancy. In addition, elements of inflammatory stranding are noted immediately adjacent to the inferior aspect of this mass though this is presumably related to the short segment of sigmoid diverticulitis. Additional ovoid fluid density located about the inferior aspect of the cecum near the base of the appendix presumably represents fluid within the cecum though technically an appendiceal mucocele could have this appearance. Consider correlation with repeat CT abdomen/pelvis with oral contrast for further assessment. TECHNICAL DOCUMENTATION: Quality ID # [id number]: Final reports with documentation of one or more dose reduction techniques (e.g., Automated exposure control, adjustment of the mA and/or kV according to patient size, use of iterative reconstruction technique) copyright 2011 [employer]- All Rights Reserved Pelvis MRI 11/13/18 22:08 IMPRESSION: Previously detailed large mass located about the anterior/inferior abdomen appears to correspond to a large pedunculated leiomyoma in the midst multiple additional uterine leiomyomas, as above described. Specifically, the left ovary is well visualized and appears normal, demonstrating only a few normal-appearing follicles. However, given this lesion's large size and somewhat unusual configuration, continued follow-up/gynecological consultation would be of benefit to determine appropriate management and completely exclude a more sinister process such as leiomyosarcoma. Inflammatory stranding surrounding a short segment of sigmoid colon as well as the suspected large pedunculated fibroid about the anterior/inferior pelvis. Overall, findings remain suspicious for acute sigmoid diverticulitis although technically pelvic inflammatory disease could have this appearance. Correlate. copyright 2010 [employer]- All Rights Reserved Chest/Abdomen CTA 11/14/18 00:00 IMPRESSION: Slightly limited study. No obvious pulmonary emboli. No aortic aneurysm or dissection. Chest X-Ray 11/15/18 00:00 IMPRESSION: Central venous access catheter placed via right IJ approach. Catheter tip overlies the SVC near- above the level of the evangelina. No pneumothorax. Radiographic appearance of the chest otherwise stable. Assessment & Plan - Diagnosis (1) Diverticulitis Is this a current diagnosis for this admission?: Yes - Plan Summary Plan Summary: diverticuliltis still no bowel function still with moderate pain will cont iv abx. wbc trending down 12k today.
[2018-11-16] MEDS: PROMETHAZINE HCL INJ 25 MG/1 ML VIAL IV PRN ×2 (16:17→21:19)
[2018-11-16] MEDS: ACETAMINOPHEN 325 MG TABLET PO PRN (22:28)
[2018-11-17] MEDS: ONDANSETRON HCL INJ/PF 4 MG/2 ML SDV IV PRN ×2 (00:09→17:20)
[2018-11-17] MEDS: METRONIDAZOLE 500 MG TABLET PO SCH ×4 (00:09→17:23)
[2018-11-17] MEDS: NORMAL SALINE 1000 ML 1,000 ML IV PRN ×3 (00:16→21:00)
[2018-11-17] MEDS: PROMETHAZINE HCL INJ 25 MG/1 ML VIAL IV PRN (05:55)
[2018-11-17] MEDS: HEPARIN SOD (PORCINE) 5,000 UNIT/ML 1 ML SYRINGE SUBCUT SCH ×3 (05:55→21:05)
[2018-11-17] MEDS: ACETAMINOPHEN 325 MG TABLET PO PRN ×2 (06:15→17:23)
[2018-11-17 06:30] LABS: ABSOLUTE LYMPHOCYTES (AUTO) 1.3 10^3/uL (0.5-4.7); ABSOLUTE MONOCYTES (AUTO) 1.5 10^3/uL (0.1-1.4); ABSOLUTE NEUT (AUTO) 13.1 10^3/uL (1.7-8.2); BASOPHILS % (AUTO) 0.2 % (0-2); EOSINOPHILS % (AUTO) 0.1 % (0-6); HEMATOCRIT 25.1 % (36.0-47.0); LYMPHOCYTES % (AUTO) 8.4 % (13-45); MEAN CORPUSCULAR HEMOGLOBIN 18.2 pg (27.0-33.4); MEAN CORPUSCULAR HGB CONC 29.7 g/dL (32.0-36.0); MEAN CORPUSCULAR VOLUME 61 fl (80-97); MONOCYTES % (AUTO) 9.3 % (3-13); PLATELET COUNT 326 10^3/uL (150-450); RED BLOOD COUNT 4.09 10^6/uL (3.72-5.28); RED CELL DISTRIBUTION WIDTH 28.9 % (11.5-14.0); TOTAL CELLS COUNTED % (AUTO) 100 %; WHITE BLOOD COUNT 15.9 10^3/uL (4.0-10.5)
[2018-11-17 06:46] LABS: ANION GAP 11 (5-19); BLOOD UREA NITROGEN 11 mg/dL (7-20); CALCIUM 8.4 mg/dL (8.4-10.2); CARBON DIOXIDE 22 mmol/L (22-30); CHLORIDE 109 mmol/L (98-107); GLUCOSE 86 mg/dL (75-110); POTASSIUM 3.7 mmol/L (3.6-5.0); SODIUM 141.9 mmol/L (137-145)
[2018-11-17] MEDS ORDERED: NORMAL SALINE 250 ML IV PRN ×2 (08:20)
[2018-11-17 08:25] LABS: HEMOGLOBIN 7.5 g/dL (12.0-15.5)
[2018-11-17 08:28] LABS: ANISOCYTOSIS 3+; HYPOCHROMASIA 3+; OVALOCYTES 1+; PLATELET COMMENT ADEQUATE; POIKILOCYTOSIS 1+; TARGET CELLS 1+
[2018-11-17] MEDS: CIPROFLOXACIN 400 MG/D5W RTU 400 MG/200 ML RTUPB IV SCH ×2 (09:41→21:07)
[2018-11-17] MEDS: PANTOPRAZOLE SODIUM 40 MG VIAL IV SCH (09:41)
--- NOTE | 2018-11-17 10:25 | PDOC PROGRESS REPORT ---
Subjective Progress Note for:: 11/17/18 Subjective:: Patient states she feels better, less tender; tolerating shannon shannon. Patient reports this is her second episode of acute diverticulitis last episode several years ago in [facility]. She has never undergone colonoscopy. There is no family history of colorectal cancer. Reason For Visit: ABDOMINAL PAIN,ANEMIA,DIVERTICULITIS,FIBROID UTERU Physical Exam Vital Signs: Temp Pulse Resp BP Pulse Ox 97.5 F 93 18 140/75 H 98 11/17/18 07:12 11/17/18 07:12 11/17/18 07:12 11/17/18 07:12 11/17/18 07:12 Intake & Output 11/16/18 11/17/18 11/18/18 06:59 06:59 06:59 Intake Total 2450 3414 1000 Balance 2450 3414 1000 Weight 109.4 kg 111 kg General appearance: PRESENT: no acute distress GI/Abdominal exam: PRESENT: other - Normal tenderness, but not severe. More so in the suprapubic regions. Results Laboratory Results: 11/17/18 06:00 11/17/18 06:00 11/17/18 11/17/18 11/17/18 06:00 06:00 08:05 WBC 15.9 H RBC 4.09 Hgb 7.5 L Hct 25.1 L MCV 61 L MCH 18.2 L MCHC 29.7 L RDW 28.9 H Plt Count 326 Seg Neutrophils % 82.0 H Lymphocytes % 8.4 L Monocytes % 9.3 Eosinophils % 0.1 Basophils % 0.2 Absolute Neutrophils 13.1 H Absolute Lymphocytes 1.3 Absolute Monocytes 1.5 H Absolute Eosinophils 0.0 Absolute Basophils 0.0 Sodium 141.9 Potassium 3.7 Chloride 109 H Carbon Dioxide 22 Anion Gap 11 BUN 11 Creatinine 0.71 Est GFR ( Amer) > 60 Est GFR (Non-Af Amer) > 60 Glucose 86 Calcium 8.4 Blood Type B POSITIVE Antibody Screen NEGATIVE Impressions: Abdomen/Pelvis CT 11/13/18 20:00 IMPRESSION: Findings suspicious for acute sigmoid diverticulitis. Focus of gas density located immediately adjacent to the sigmoid colon as above described most likely corresponds to gas within a diverticula as opposed to a focus of contained perforation. No definitive areas of extraluminal free air identified. Likewise, no drainable fluid collections are apparent. Fibroid uterus. Additional multilobulated mass located adjacent to the anterior aspect of the uterine fundus potentially corresponds to a multilobulated/exophytic subserosal fibroid. However, confirmation with contrast-enhanced pelvic MR is suggested to confirm that this does not represent a solid ovarian mass or other malignancy. In addition, elements of inflammatory stranding are noted immediately adjacent to the inferior aspect of this mass though this is presumably related to the short segment of sigmoid diverticulitis. Additional ovoid fluid density located about the inferior aspect of the cecum near the base of the appendix presumably represents fluid within the cecum though technically an appendiceal mucocele could have this appearance. Consider correlation with repeat CT abdomen/pelvis with oral contrast for further assessment. TECHNICAL DOCUMENTATION: Quality ID # [id number]: Final reports with documentation of one or more dose reduction techniques (e.g., Automated exposure control, adjustment of the mA and/or kV according to patient size, use of iterative reconstruction technique) copyright 2011 [employer]- All Rights Reserved Pelvis MRI 11/13/18 22:08 IMPRESSION: Previously detailed large mass located about the anterior/inferior abdomen appears to correspond to a large pedunculated leiomyoma in the midst multiple additional uterine leiomyomas, as above described. Specifically, the left ovary is well visualized and appears normal, demonstrating only a few normal-appearing follicles. However, given this lesion's large size and somewhat unusual configuration, continued follow-up/gynecological consultation would be of benefit to determine appropriate management and completely exclude a more sinister process such as leiomyosarcoma. Inflammatory stranding surrounding a short segment of sigmoid colon as well as the suspected large pedunculated fibroid about the anterior/inferior pelvis. Overall, findings remain suspicious for acute sigmoid diverticulitis although technically pelvic inflammatory disease could have this appearance. Correlate. copyright 2010 [employer]- All Rights Reserved Chest/Abdomen CTA 11/14/18 00:00 IMPRESSION: Slightly limited study. No obvious pulmonary emboli. No aortic aneurysm or dissection. Chest X-Ray 11/15/18 00:00 IMPRESSION: Central venous access catheter placed via right IJ approach. Catheter tip overlies the SVC near- above the level of the evangelina. No pneu mothorax. Radiographic appearance of the chest otherwise stable. Assessment & Plan - Diagnosis (1) Diverticulitis Is this a current diagnosis for this admission?: Yes Plan: Impression: Uncomplicated diverticulitis, second episode according to patient's history; clinically improved, but persisting low-grade fever and leukocytosis. Recommendations: 1. Continue current therapy; maintain on clear liquids 2. We will follow with you. Patient diagnostic colonoscopy for acute flareup resolved. This was discussed with patient.
--- NOTE | 2018-11-17 14:54 | PDOC PROGRESS REPORT ---
Subjective Progress Note for:: 11/17/18 Subjective:: ABRIL KENDRICK is a 38 year old female with a PMH significant only for morbid obesity who was admitted 11/15/2018 for acute sigmoid diverticulitis. Patient was seen on morning rounds. She found resting in bed on room air. She continues to have abdominal discomfort,though reports it is much improved today. She also reports two loose bowel movements overnight. Tolerating shannon shannon this morning without nausea or emesis. She did continue to have fever overnight; TMax 101.6 in last 24 hours. She has begun her menses; complains of related abdominal cramping. Otherwise, she denies headache, dizziness, chest pain, palpitations, dyspnea, orthopnea and cough. She has no questions or concerns at this time. No concerns per nursing. Will attempt to transfuse today as fever is now clearly r/t diverticulosis/infectious process and not transfusion related. Reason For Visit: ABDOMINAL PAIN,ANEMIA,DIVERTICULITIS,FIBROID UTERU Physical Exam Vital Signs: Temp Pulse Resp BP Pulse Ox 99.1 F 81 24 H 112/55 L 100 11/17/18 14:30 11/17/18 14:30 11/17/18 14:30 11/17/18 14:30 11/17/18 14:30 Intake & Output 11/16/18 11/17/18 11/18/18 06:59 06:59 06:59 Intake Total 2450 3414 1440 Balance 2450 3414 1440 Weight 109.4 kg 111 kg General appearance: PRESENT: no acute distress, morbidly obese, well-developed, well-nourished Head exam: PRESENT: atraumatic, normocephalic Eye exam: PRESENT: conjunctiva pink, EOMI, PERRLA. ABSENT: scleral icterus Ear exam: PRESENT: normal external ear exam Mouth exam: PRESENT: moist, tongue midline Neck exam: ABSENT: carotid bruit, JVD, lymphadenopathy, thyromegaly Respiratory exam: PRESENT: clear to auscultation holli, decreased breath sounds - secondary to body habitus and poor inspiratory effort, symmetrical, unlabored. ABSENT: rales, rhonchi, wheezes Cardiovascular exam: PRESENT: RRR. ABSENT: diastolic murmur, rubs, systolic murmur Pulses: PRESENT: normal dorsalis pedis pul Vascular exam: PRESENT: normal capillary refill GI/Abdominal exam: PRESENT: distended, hypoactive bowel sounds, soft, tenderness. ABSENT: guarding, mass, organolmegaly, rebound Rectal exam: PRESENT: deferred Extremities exam: PRESENT: full ROM. ABSENT: calf tenderness, clubbing, pedal edema Musculoskeletal exam: PRESENT: ambulatory Neurological exam: PRESENT: alert, awake, oriented to person, oriented to place, oriented to time, oriented to situation, CN II-XII grossly intact. ABSENT: motor sensory deficit Psychiatric exam: PRESENT: appropriate affect, normal mood. ABSENT: homicidal ideation, suicidal ideation Skin exam: PRESENT: dry, intact, warm. ABSENT: cyanosis, rash Results Laboratory Results: 11/17/18 06:00 11/17/18 06:00 11/17/18 11/17/18 11/17/18 06:00 06:00 08:05 WBC 15.9 H RBC 4.09 Hgb 7.5 L Hct 25.1 L MCV 61 L MCH 18.2 L MCHC 29.7 L RDW 28.9 H Plt Count 326 Seg Neutrophils % 82.0 H Lymphocytes % 8.4 L Monocytes % 9.3 Eosinophils % 0.1 Basophils % 0.2 Absolute Neutrophils 13.1 H Absolute Lymphocytes 1.3 Absolute Monocytes 1.5 H Absolute Eosinophils 0.0 Absolute Basophils 0.0 Sodium 141.9 Potassium 3.7 Chloride 109 H Carbon Dioxide 22 Anion Gap 11 BUN 11 Creatinine 0.71 Est GFR ( Amer) > 60 Est GFR (Non-Af Amer) > 60 Glucose 86 Calcium 8.4 Blood Type B POSITIVE Antibody Screen NEGATIVE Impressions: Abdomen/Pelvis CT 11/13/18 20:00 IMPRESSION: Findings suspicious for acute sigmoid diverticulitis. Focus of gas density located immediately adjacent to the sigmoid colon as above described most likely corresponds to gas within a diverticula as opposed to a focus of contained perforation. No definitive areas of extraluminal free air identified. Likewise, no drainable fluid collections are apparent. Fibroid uterus. Additional multilobulated mass located adjacent to the anterior aspect of the uterine fundus potentially corresponds to a multilobulated/exophytic subserosal fibroid. However, confirmation with contrast-enhanced pelvic MR is suggested to confirm that this does not represent a solid ovarian mass or other malignancy. In addition, elements of inflammatory stranding are noted immediately adjacent to the inferior aspect of this mass though this is presumably related to the short segment of sigmoid diverticulitis. Additional ovoid fluid density located about the inferior aspect of the cecum near the base of the appendix presumably represents fluid within the cecum though technically an appendiceal mucocele could have this appearance. Consider correlation with repeat CT abdomen/pelvis with oral contrast for further assessment. TECHNICAL DOCUMENTATION: Quality ID # [id number]: Final reports with documentation of one or more dose reduction techniques (e.g., Automated exposure control, adjustment of the mA and/or kV according to patient size, use of iterative reconstruction technique) copyright 2011 [employer]- All Rights Reserved Pelvis MRI 11/13/18 22:08 IMPRESSION: Previously detailed large mass located about the anterior/inferior abdomen appears to correspond to a large pedunculated leiomyoma in the midst multiple additional uterine leiomyomas, as above described. Specifically, the left ovary is well visualized and appears normal, demonstrating only a few normal-appearing follicles. However, given this lesion's large size and somewhat unusual configuration, continued follow-up/gynecological consultation would be of benefit to determine appropriate management and completely exclude a more sinister process such as leiomyosarcoma. Inflammatory stranding surrounding a short segment of sigmoid colon as well as the suspected large pedunculated fibroid about the anterior/inferior pelvis. Overall, findings remain suspicious for acute sigmoid diverticulitis although technically pelvic inflammatory disease could have this appearance. Correlate. copyright 2010 [employer]- All Rights Reserved Chest/Abdomen CTA 11/14/18 00:00 IMPRESSION: Slightly limited study. No obvious pulmonary emboli. No aortic aneurysm or dissection. Chest X-Ray 11/15/18 00:00 IMPRESSION: Central venous access catheter placed via right IJ approach. Catheter tip overlies the SVC near- above the level of the evangelina. No pneumothorax. Radiographic appearance of the chest otherwise stable. Assessment and Plan - Diagnosis (1) Sigmoid diverticulitis Is this a current diagnosis for this admission?: Yes Plan: Patient is admitted to [facility] on continuous cardiac telemetry. Blood cultures are negative at 72 hours. Repeat blood cultures are negative at 24 hours Leukocytosis up slightly; 18-> 17-> 19-> 15-> 12-> 15. TMax 101.6 in last 24 hours. Continue on IV Cipro and p.o. Flagyl; day #4. Clear liquids. Analgesics and antiemetics as needed. Ambulate frequently Surgical services are consulted; appreciate their assistance. Discussed w/ Dr. Méndez today; recommends to continue current course. Patient should follow up with the [facility] ~2 weeks after discharge. (2) Anemia Qualifiers: Anemia type: iron deficiency Iron deficiency anemia type: chronic blood loss Qualified Code(s): D50.0 - Iron deficiency anemia secondary to blood loss (chronic) Is this a current diagnosis for this admission?: Yes Plan: Iron deficiency anemia; underlying cause most likely uterine. Patient reports irregular and heavy menses. Hemoccult stool negative. Hgb 6.4 -> 7.8 (s/p 2 units)-> 7.8-> 7.3-> 7.4 Now s/p 2 units PRBC (TAR inaccurately reports 4 units transfused) Anemia panel demonstrated iron deficiency. Daily CBC. Start MVI and iron supplementation once passing gas/having bm secondary to constipating properties. Consider iron infusion. Will transfuse 2 units PRBC today. (3) Pelvic mass in female Is this a current diagnosis for this admission?: Yes Plan: RN TRAINING and surgical services are consulted. RN TRAINING has evaluated the patient and determined that she can follow-up as an outpatient following treatment of diverticulitis for evaluation and management of her uterine fibroids. Possibility of malignancy is considered; final determination for further evaluation per the SENIOR DATA ANALYST service. (4) Fibroid uterus Qualifiers: Uterine leiomyoma location: submucous Qualified Code(s): D25.0 - Submucous leiomyoma of uterus Is this a current diagnosis for this admission?: Yes Plan: SENIOR DATA ANALYST has been consulted; to follow-up with Dr. Leon as an outpatient following treatment of sigmoid diverticulitis. (5) Morbid obesity Is this a current diagnosis for this admission?: Yes Plan: Dietary discretion is advised. (6) Tachypnea Is this a current diagnosis for this admission?: Yes Plan: Improved; now w/ intermittent tachypnea. Maintaining oxygen saturations on room air. Possibly related to anemia, pain or body habitus. Chest x-ray was normal. Given the concern for possible intra-abdominal malignancy, pulmonary embolus is considered. Other risk factors include morbid obesity and frequent travel (regularly drives approximately 8 hours to visit her mother; last trip approximately 6 weeks ago). D-dimer was elevated to 2.48. CTA Chest, however, was negative for pulmonary embolus. Supplemental oxygen as needed to maintain saturations >90%. As needed nebulizer treatments. (7) Transfusion reaction Qualifiers: Encounter type: initial encounter Qualified Code(s): T80.92XA - Unspecified transfusion reaction, initial encounter Is this a current diagnosis for this admission?: Yes Plan: Ruled out. Patient developed transfusion reaction during first 15 min of PRBC transfusion today. Nursing noted increased HR (70-> 93-> 104), RR (18-> 36-> 40), Temperature (98.1-> 99.9-> 102.9), w/ brief decreased BP. Transfusion stopped and lab notified. Laboratory evaluation is nml; pathologist did not find evidence of transfusion reaction. CXR is benign. Received Tylenol 975 mg, Benadryl 25 mg IV x1, and Motrin 600 mg p.o. x1 r/t persistently elevated temperature. Continue maintenance IVF. Close vital sign monitoring. Did not require epinephrine. - Time Time Spent with patient: 15-24 minutes Medications reviewed and adjusted accordingly: Yes Anticipated discharge: Home Within: within 72 hours
[2018-11-17 23:08] LABS: HEMATOCRIT 29.8 % (36.0-47.0); HEMOGLOBIN 9.2 g/dL (12.0-15.5); MEAN CORPUSCULAR HEMOGLOBIN 20.5 pg (27.0-33.4); PLATELET COUNT 291 10^3/uL (150-450); RED CELL DISTRIBUTION WIDTH 31.6 % (11.5-14.0); WHITE BLOOD COUNT 14.6 10^3/uL (4.0-10.5)
[2018-11-17 23:54] LABS: MEAN CORPUSCULAR VOLUME 66 fl (80-97)
[2018-11-18] MEDS: METRONIDAZOLE 500 MG TABLET PO SCH ×5 (00:14→23:25)
[2018-11-18 04:21] LABS: HEMATOCRIT 29.4 % (36.0-47.0); HEMOGLOBIN 9.2 g/dL (12.0-15.5); MEAN CORPUSCULAR HEMOGLOBIN 20.6 pg (27.0-33.4); MEAN CORPUSCULAR HGB CONC 31.2 g/dL (32.0-36.0); MEAN CORPUSCULAR VOLUME 66 fl (80-97); PLATELET COUNT 279 10^3/uL (150-450); RED BLOOD COUNT 4.45 10^6/uL (3.72-5.28); RED CELL DISTRIBUTION WIDTH 31.5 % (11.5-14.0); WHITE BLOOD COUNT 14.2 10^3/uL (4.0-10.5)
[2018-11-18 04:41] LABS: ALANINE AMINOTRANSFERASE 45 U/L (9-52); ALBUMIN 2.6 g/dL (3.5-5.0); ALKALINE PHOSPHATASE 73 U/L (38-126); ANION GAP 8 (5-19); ASPARTATE AMINO TRANSFERASE 105 U/L (14-36); BILIRUBIN,DIRECT 1.2 mg/dL (0.0-0.4); BILIRUBIN,TOTAL 2.1 mg/dL (0.2-1.3); BLOOD UREA NITROGEN 8 mg/dL (7-20); CALCIUM 8.2 mg/dL (8.4-10.2); CARBON DIOXIDE 24 mmol/L (22-30); CHLORIDE 108 mmol/L (98-107); GLUCOSE 87 mg/dL (75-110); POTASSIUM 3.5 mmol/L (3.6-5.0); SODIUM 140.1 mmol/L (137-145)
[2018-11-18] MEDS: HEPARIN SOD (PORCINE) 5,000 UNIT/ML 1 ML SYRINGE SUBCUT SCH ×3 (05:16→21:07)
[2018-11-18] MEDS: ONDANSETRON HCL INJ/PF 4 MG/2 ML SDV IV PRN (05:22)
[2018-11-18] MEDS: NORMAL SALINE 1000 ML 1,000 ML IV PRN (06:34)
[2018-11-18] MEDS: CIPROFLOXACIN 400 MG/D5W RTU 400 MG/200 ML RTUPB IV SCH ×2 (09:22→21:09)
[2018-11-18] MEDS: PANTOPRAZOLE SODIUM 40 MG VIAL IV SCH (09:24)
[2018-11-18] MEDS ORDERED: ONDANSETRON 4 MG TAB.RAPDIS PO PRN (09:49)
--- NOTE | 2018-11-18 09:57 | PDOC PROGRESS REPORT ---
Subjective Progress Note for:: 11/18/18 Subjective:: feels better, passing stool Reason For Visit: ABDOMINAL PAIN,ANEMIA,DIVERTICULITIS,FIBROID UTERU Physical Exam Vital Signs: Temp Pulse Resp BP Pulse Ox 98.7 F 65 21 H 98/54 L 99 11/18/18 07:05 11/18/18 07:05 11/18/18 07:05 11/18/18 07:05 11/18/18 07:05 Intake & Output 11/17/18 11/18/18 11/19/18 06:59 06:59 06:59 Intake Total 3414 5436 Balance 3414 5436 Weight 111 kg 114.1 kg General appearance: PRESENT: no acute distress Head exam: PRESENT: normocephalic Eye exam: PRESENT: EOMI Ear exam: PRESENT: normal external ear exam Mouth exam: PRESENT: moist Neck exam: PRESENT: full ROM Respiratory exam: PRESENT: clear to auscultation holli Cardiovascular exam: PRESENT: RRR Pulses: PRESENT: normal radial pulses, normal femoral pulses GI/Abdominal exam: PRESENT: soft Rectal exam: PRESENT: deferred Extremities exam: PRESENT: full ROM Musculoskeletal exam: PRESENT: full ROM Neurological exam: PRESENT: alert, awake, oriented to person, oriented to place Skin exam: PRESENT: dry Results Laboratory Results: 11/18/18 04:00 11/18/18 04:00 11/17/18 11/17/18 11/18/18 08:05 22:45 04:00 WBC 14.6 H 14.2 H RBC 4.50 4.45 Hgb 9.2 L 9.2 L Hct 29.8 L 29.4 L MCV 66 L D 66 L MCH 20.5 L 20.6 L MCHC 31.0 L 31.2 L RDW 31.6 H 31.5 H Plt Count 291 279 Sodium Potassium Chloride Carbon Dioxide Anion Gap BUN Creatinine Est GFR ( Amer) Est GFR (Non-Af Amer) Glucose Calcium Total Bilirubin AST ALT Alkaline Phosphatase Total Protein Albumin Blood Type B POSITIVE Antibody Screen NEGATIVE 11/18/18 04:00 WBC RBC Hgb Hct MCV MCH MCHC RDW Plt Count Sodium 140.1 Potassium 3.5 L Chloride 108 H Carbon Dioxide 24 Anion Gap 8 BUN 8 Creatinine 0.71 Est GFR ( Amer) > 60 Est GFR (Non-Af Amer) > 60 Glucose 87 Calcium 8.2 L Total Bilirubin 2.1 H AST 105 H ALT 45 Alkaline Phosphatase 73 Total Protein 6.0 L Albumin 2.6 L Blood Type Antibody Screen Impressions: Abdomen/Pelvis CT 11/13/18 20:00 IMPRESSION: Findings suspicious for acute sigmoid diverticulitis. Focus of gas density located immediately adjacent to the sigmoid colon as above described most likely corresponds to gas within a diverticula as opposed to a focus of contained perforation. No definitive areas of extraluminal free air identified. Likewise, no drainable fluid collections are apparent. Fibroid uterus. Additional multilobulated mass located adjacent to the anterior aspect of the uterine fundus potentially corresponds to a multilobulated/exophytic subserosal fibroid. However, confirmation with contrast-enhanced pelvic MR is suggested to confirm that this does not represent a solid ovarian mass or other malignancy. In addition, elements of inflammatory stranding are noted immediately adjacent to the inferior aspect of this mass though this is presumably related to the short segment of sigmoid diverticulitis. Additional ovoid fluid density located about the inferior aspect of the cecum near the base of the appendix presumably represents fluid within the cecum though technically an appendiceal mucocele could have this appearance. Consider correlation with repeat CT abdomen/pelvis with oral contrast for further assessment. TECHNICAL DOCUMENTATION: Quality ID # 436: Final reports with documentation of one or more dose reduction techniques (e.g., Automated exposure control, adjustment of the mA and/or kV according to patient size, use of iterative reconstruction technique) copyright 2010 [employer]- All Rights Reserved Pelvis MRI 11/13/18 22:08 IMPRESSION: Previously detailed large mass located about the anterior/inferior abdomen appears to correspond to a large pedunculated leiomyoma in the midst multiple additional uterine leiomyomas, as above described. Specifically, the left ovary is well visualized and appears normal, demonstrating only a few normal-appearing follicles. However, given this lesion's large size and somewhat unusual configuration, continued follow-up/gynecological consultation would be of benefit to determine appropriate management and completely exclude a more sinister process such as leiomyosarcoma. Inflammatory stranding surrounding a short segment of sigmoid colon as well as the suspected large pedunculated fibroid about the anterior/inferior pelvis. Overall, findings remain suspicious for acute sigmoid diverticulitis although technically pelvic inflammatory disease could have this appearance. Correlate. copyright 2010 [employer]- All Rights Reserved Chest/Abdomen CTA 11/14/18 00:00 IMPRESSION: Slightly limited study. No obvious pulmonary emboli. No aortic aneurysm or dissection. Chest X-Ray 11/15/18 00:00 IMPRESSION: Central venous access catheter placed via right IJ approach. Catheter tip overlies the SVC near- above the level of the evangelina. No pne umothorax. Radiographic appearance of the chest otherwise stable. Assessment & Plan - Diagnosis (1) Diverticulitis Is this a current diagnosis for this admission?: Yes - Plan Summary Plan Summary: improving passing small amts of stool wbc trending down cristina clears will cont clears for 1 more day cont iv abx.
--- NOTE | 2018-11-18 16:40 | PDOC PROGRESS REPORT ---
Subjective Progress Note for:: 11/18/18 Subjective:: ABRIL KENDRICK is a 38 year old female with a PMH significant only for morbid obesity who was admitted 11/15/2018 for acute sigmoid diverticulitis. Patient was seen this morning on rounds, resting in her bedside recliner. The patient complains of nausea. She is able to tolerate some clear liquids. Patient states she has begun her menses yesterday, complains of lower abdominal cramping and states she feels this is contributing to her overall symptomology. Will keep patient on clear liquids. Changed antiemetics from phenergan to zofran. Reason For Visit: ABDOMINAL PAIN,ANEMIA,DIVERTICULITIS,FIBROID UTERU Physical Exam Vital Signs: Temp Pulse Resp BP Pulse Ox 98.7 F 65 21 H 98/54 L 99 11/18/18 07:05 11/18/18 07:05 11/18/18 07:05 11/18/18 07:05 11/18/18 07:05 Intake & Output 11/17/18 11/18/18 11/19/18 06:59 06:59 06:59 Intake Total 3414 5436 542 Balance 3414 5436 542 Weight 111 kg 114.1 kg General appearance: PRESENT: no acute distress, obese Head exam: PRESENT: atraumatic, normocephalic Eye exam: PRESENT: conjunctiva pink, EOMI, PERRLA. ABSENT: scleral icterus Ear exam: PRESENT: normal external ear exam Mouth exam: PRESENT: moist, tongue midline Neck exam: PRESENT: full ROM. ABSENT: carotid bruit, JVD, lymphadenopathy, thyromegaly Respiratory exam: PRESENT: clear to auscultation holli, symmetrical, unlabored. ABSENT: rales, rhonchi, wheezes Cardiovascular exam: PRESENT: RRR. ABSENT: diastolic murmur, rubs, systolic murmur Pulses: PRESENT: normal radial pulses, normal dorsalis pedis pul Vascular exam: PRESENT: normal capillary refill GI/Abdominal exam: PRESENT: normal bowel sounds, soft. ABSENT: distended, guarding, mass, organolmegaly, rebound, tenderness Rectal exam: PRESENT: deferred Extremities exam: PRESENT: full ROM. ABSENT: calf tenderness, clubbing, pedal edema Musculoskeletal exam: PRESENT: full ROM, normal inspection Neurological exam: PRESENT: alert, awake, oriented to person, oriented to place, oriented to time, oriented to situation Psychiatric exam: PRESENT: appropriate affect, normal mood Skin exam: PRESENT: dry, intact, warm. ABSENT: cyanosis, rash Results Laboratory Results: 11/18/18 04:00 11/18/18 04:00 11/17/18 11/17/18 11/18/18 08:05 22:45 04:00 WBC 14.6 H 14.2 H RBC 4.50 4.45 Hgb 9.2 L 9.2 L Hct 29.8 L 29.4 L MCV 66 L D 66 L MCH 20.5 L 20.6 L MCHC 31.0 L 31.2 L RDW 31.6 H 31.5 H Plt Count 291 279 Sodium Potassium Chloride Carbon Dioxide Anion Gap BUN Creatinine Est GFR ( Amer) Est GFR (Non-Af Amer) Glucose Calcium Total Bilirubin AST ALT Alkaline Phosphatase Total Protein Albumin Blood Type B POSITIVE Antibody Screen NEGATIVE 11/18/18 04:00 WBC RBC Hgb Hct MCV MCH MCHC RDW Plt Count Sodium 140.1 Potassium 3.5 L Chloride 108 H Carbon Dioxide 24 Anion Gap 8 BUN 8 Creatinine 0.71 Est GFR ( Amer) > 60 Est GFR (Non-Af Amer) > 60 Glucose 87 Calcium 8.2 L Total Bilirubin 2.1 H AST 105 H ALT 45 Alkaline Phosphatase 73 Total Protein 6.0 L Albumin 2.6 L Blood Type Antibody Screen Impressions: Abdomen/Pelvis CT 11/13/18 20:00 IMPRESSION: Findings suspicious for acute sigmoid diverticulitis. Focus of gas density located immediately adjacent to the sigmoid colon as above described most likely corresponds to gas within a diverticula as opposed to a focus of contained perforation. No definitive areas of extraluminal free air identified. Likewise, no drainable fluid collections are apparent. Fibroid uterus. Additional multilobulated mass located adjacent to the anterior aspect of the uterine fundus potentially corresponds to a multilobulated/exophytic subserosal fibroid. However, confirmation with contrast-enhanced pelvic MR is suggested to confirm that this does not represent a solid ovarian mass or other malignancy. In addition, elements of inflammatory stranding are noted immediately adjacent to the inferior aspect of this mass though this is presumably related to the short segment of sigmoid diverticulitis. Additional ovoid fluid density located about the inferior aspect of the cecum near the base of the appendix presumably represents fluid within the cecum though technically an appendiceal mucocele could have this appearance. Consider correlation with repeat CT abdomen/pelvis with oral contrast for further assessment. TECHNICAL DOCUMENTATION: Quality ID # 436: Final reports with documentation of one or more dose reduction techniques (e.g., Automated exposure control, adjustment of the mA and/or kV according to patient size, use of iterative reconstruction technique) copyright 2011 [employer]- All Rights Reserved Pelvis MRI 11/13/18 22:08 IMPRESSION: Previously detailed large mass located about the anterior/inferior abdomen appears to correspond to a large pedunculated leiomyoma in the midst multiple additional uterine leiomyomas, as above described. Specifically, the left ovary is well visualized and appears normal, demonstrating only a few normal-appearing follicles. However, given this lesion's large size and somewhat unusual configuration, continued follow-up/gynecological consultation would be of benefit to determine appropriate management and completely exclude a more sinister process such as leiomyosarcoma. Inflammatory stranding surrounding a short segment of sigmoid colon as well as the suspected large pedunculated fibroid about the anterior/inferior pelvis. Overall, findings remain suspicious for acute sigmoid diverticulitis although technically pelvic inflammatory disease could have this appearance. Correlate. copyright 2010 [employer]- All Rights Reserved Chest/Abdomen CTA 11/14/18 00:00 IMPRESSION: Slightly limited study. No obvious pulmonary emboli. No aortic aneurysm or dissection. Chest X-Ray 11/15/18 00:00 IMPRESSION: Central venous access catheter placed via right IJ approach. Catheter tip overlies the SVC near- above the level of the evangelina. No pneumothorax. Radiographic appearance of the chest otherwise stable. Status: Imported from PACS Assessment and Plan - Diagnosis (1) Sigmoid diverticulitis Is this a current diagnosis for this admission?: Yes Plan: Patient is admitted to [facility] on continuous cardiac telemetry. Blood cultures are negative Repeat blood cultures are negative Leukocytosis up slightly; 18 (peak)-> 14 (today) Afebrile in last 24 hours. Continue on IV Cipro and p.o. Flagyl Clear liquids. Analgesics and antiemetics as needed. Ambulate frequently Surgical services are consulted; appreciate their assistance. Patient should follow up with the [facility] ~2 weeks after discharge. (2) Anemia Qualifiers: Anemia type: iron deficiency Iron deficiency anemia type: chronic blood loss Qualified Code(s): D50.0 - Iron deficiency anemia secondary to blood loss (chronic) Is this a current diagnosis for this admission?: Yes Plan: Iron deficiency anemia; underlying cause most likely uterine. Patient reports irregular and heavy menses. Hemoccult stool negative. Hgb 6.4 -> 7.8 (s/p 2 units)-> 9.2 (today) Now s/p 2 units PRBC (TAR inaccurately reports 4 units transfused) Anemia panel demonstrated iron deficiency. Daily CBC. Start MVI and iron supplementation once passing gas/having bm secondary to constipating properties. Consider iron infusion. (3) Morbid obesity Is this a current diagnosis for this admission?: Yes Plan: Dietary discretion is advised. (4) Pelvic mass in female Is this a current diagnosis for this admission?: Yes Plan: MANAGER TREASURY and surgical services are consulted. MANAGER TREASURY has evaluated the patient and determined that she can follow-up as an outpatient following treatment of diverticulitis for evaluation and management of her uterine fibroids. Possibility of malignancy is considered; final determination for further evaluation per the [employer] service. (5) Tachypnea Is this a current diagnosis for this admission?: Yes Plan: Improved; now w/ intermittent tachypnea. Maintaining oxygen saturations on room air. Possibly related to anemia, pain or body habitus. Chest x-ray was normal. Given the concern for possible intra-abdominal malignancy, pulmonary embolus is considered. Other risk factors include morbid obesity and frequent travel (regularly drives approximately 8 hours to visit her mother; last trip approximately 6 weeks ago). D-dimer was elevated to 2.48. CTA Chest, however, was negative for pulmonary embolus. Supplemental oxygen as needed to maintain saturations >90%. As needed nebulizer treatments. (6) Transfusion reaction Qualifiers: Encounter type: initial encounter Qualified Code(s): T80.92XA - Unspecified transfusion reaction, initial encounter Is this a current diagnosis for this admission?: Yes Plan: Ruled out. Patient developed transfusion reaction during first 15 min of PRBC transfusion Nursing noted increased HR (70-> 93-> 104), RR (18-> 36-> 40), Temperature (98.1-> 99.9-> 102.9), w/ brief decreased BP. Transfusion stopped and lab notified. Laboratory evaluation is nml; pathologist did not find evidence of transfusion reaction. CXR is benign. Received Tylenol 975 mg, Benadryl 25 mg IV x1, and Motrin 600 mg p.o. x1 r/t persistently elevated temperature. Did not require epinephrine. - Time Time Spent with patient: 15-24 minutes Medications reviewed and adjusted accordingly: Yes Anticipated discharge: Home Within: within 48 hours - Inpatient Certification Based on my medical assessment, after consideration of the patient's comorbidities, presenting symptoms, or acuity I expect that the services needed warrant INPATIENT care.: Yes I certify that my determination is in accordance with my understanding of Medicare's requirements for reasonable and necessary INPATIENT services [42 CFR 412.3e].: Yes Medical Necessity: Need For IV Fluids, Need for IV Antibiotics, Risk of Complication if Not Cared For in Hospital
[2018-11-19] MEDS: HEPARIN SOD (PORCINE) 5,000 UNIT/ML 1 ML SYRINGE SUBCUT SCH ×3 (05:06→21:27)
[2018-11-19] MEDS: METRONIDAZOLE 500 MG TABLET PO SCH ×3 (05:13→17:10)
[2018-11-19 07:29] LABS: HEMATOCRIT 31.2 % (36.0-47.0); HEMOGLOBIN 9.6 g/dL (12.0-15.5); MEAN CORPUSCULAR HEMOGLOBIN 20.3 pg (27.0-33.4); MEAN CORPUSCULAR HGB CONC 30.6 g/dL (32.0-36.0); MEAN CORPUSCULAR VOLUME 66 fl (80-97); PLATELET COUNT 342 10^3/uL (150-450); RED BLOOD COUNT 4.71 10^6/uL (3.72-5.28); RED CELL DISTRIBUTION WIDTH 31.7 % (11.5-14.0); WHITE BLOOD COUNT 11.1 10^3/uL (4.0-10.5)
[2018-11-19 07:35] LABS: ALANINE AMINOTRANSFERASE 74 U/L (9-52); ALKALINE PHOSPHATASE 95 U/L (38-126); ANION GAP 12 (5-19); ASPARTATE AMINO TRANSFERASE 161 U/L (14-36); BILIRUBIN,TOTAL 1.5 mg/dL (0.2-1.3); BLOOD UREA NITROGEN 10 mg/dL (7-20); CALCIUM 8.6 mg/dL (8.4-10.2); CARBON DIOXIDE 23 mmol/L (22-30); CHLORIDE 106 mmol/L (98-107); GLUCOSE 103 mg/dL (75-110); PHOSPHORUS 4.2 mg/dL (2.5-4.5); POTASSIUM 3.7 mmol/L (3.6-5.0); SODIUM 141.3 mmol/L (137-145); TOTAL PROTEIN 6.8 g/dL (6.3-8.2)
[2018-11-19] MEDS: CIPROFLOXACIN 400 MG/D5W RTU 400 MG/200 ML RTUPB IV SCH ×2 (09:59→21:30)
[2018-11-19] MEDS: PANTOPRAZOLE SODIUM 40 MG VIAL IV SCH (10:01)
--- NOTE | 2018-11-19 11:24 | PDOC PROGRESS REPORT ---
Subjective Progress Note for:: 11/19/18 Subjective:: This is a 38-year-old female with sigmoid diverticulitis. The patient reports feeling somewhat better today. She has had several small liquid bowel movements, and reports to passing occasional flatus. She still complains of nausea with the ingestion of clear liquids. She has had no vomiting in 2 days. Currently, she denies chest pain, shortness of breath, fevers, chills, significant abdominal pain, blurry vision, orthostasis, fatigue, malaise. Reason For Visit: ABDOMINAL PAIN,ANEMIA,DIVERTICULITIS,FIBROID UTERU Physical Exam Vital Signs: Temp Pulse Resp BP Pulse Ox 98.3 F 59 L 22 H 126/70 H 98 11/19/18 08:15 11/19/18 08:15 11/19/18 08:15 11/19/18 08:15 11/19/18 08:15 Intake & Output 11/18/18 11/19/18 11/20/18 06:59 06:59 06:59 Intake Total 5436 1964 Balance 5436 1964 Weight 114.1 kg 113.7 kg General appearance: PRESENT: no acute distress, obese Head exam: PRESENT: atraumatic, normocephalic Eye exam: PRESENT: EOMI, PERRLA. ABSENT: scleral icterus Mouth exam: PRESENT: moist, neck supple Neck exam: PRESENT: meningismus, tenderness, thyromegaly, tracheal deviation Respiratory exam: PRESENT: clear to auscultation holli, unlabored. ABSENT: chest wall tenderness, tachypnea Cardiovascular exam: PRESENT: RRR Pulses: PRESENT: normal radial pulses Vascular exam: PRESENT: normal capillary refill. ABSENT: pallor GI/Abdominal exam: PRESENT: soft. ABSENT: distended, firm, guarding, rebound, rigid Rectal exam: PRESENT: deferred Extremities exam: ABSENT: clubbing Musculoskeletal exam: ABSENT: deformity Neurological exam: PRESENT: alert, awake, oriented to person, oriented to place, oriented to time, oriented to situation, CN II-XII grossly intact Psychiatric exam: ABSENT: agitated, anxious, depressed Focused psych exam: ABSENT: delusional Skin exam: ABSENT: cyanosis, erythema, jaundice Results Laboratory Results: 11/19/18 06:49 11/19/18 06:49 06/12/19 06/12/19 06/12/19 06:49 06:49 06:49 WBC 11.1 H RBC 4.71 Hgb 9.6 L Hct 31.2 L MCV 66 L MCH 20.3 L MCHC 30.6 L RDW 31.7 H Plt Count 342 Sodium 141.3 Potassium 3.7 Chloride 106 Carbon Dioxide 23 Anion Gap 12 BUN 10 Creatinine 0.82 Est GFR ( Amer) > 60 Est GFR (Non-Af Amer) > 60 Glucose 103 Calcium 8.6 Phosphorus 4.2 Magnesium 2.0 Total Bilirubin 1.5 H AST 161 H ALT 74 H Alkaline Phosphatase 95 Total Protein 6.8 Albumin 3.0 L Lipase 417.0 H Serum HCG, Qual NEGATIVE 11/15/18 13:15 Bbk Unit Gram Stain - Final 11/15/18 13:15 Bbk Unit Body Fluid Culture - Final NO AEROBIC OR ANAEROBIC ORGANISMS RECOVERED 11/14/18 03:51 Blood Blood Culture - Final NO GROWTH IN 5 DAYS 11/14/18 00:40 Blood Blood Culture - Final NO GROWTH IN 5 DAYS Impressions: Abdomen/Pelvis CT 11/13/18 20:00 IMPRESSION: Findings suspicious for acute sigmoid diverticulitis. Focus of gas density located immediately adjacent to the sigmoid colon as above described most likely corresponds to gas within a diverticula as opposed to a focus of contained perforation. No definitive areas of extraluminal free air identified. Likewise, no drainable fluid collections are apparent. Fibroid uterus. Additional multilobulated mass located adjacent to the anterior aspect of the uterine fundus potentially corresponds to a multilobulated/exophytic subserosal fibroid. However, confirmation with contrast-enhanced pelvic MR is suggested to confirm that this does not represent a solid ovarian mass or other malignancy. In addition, elements of inflammatory stranding are noted immediately adjacent to the inferior aspect of this mass though this is presumably related to the short segment of sigmoid diverticulitis. Additional ovoid fluid density located about the inferior aspect of the cecum near the base of the appendix presumably represents fluid within the cecum though technically an appendiceal mucocele could have this appearance. Consider correlation with repeat CT abdomen/pelvis with oral contrast for further assessment. TECHNICAL DOCUMENTATION: Quality ID # 436: Final reports with documentation of one or more dose reduction techniques (e.g., Automated exposure control, adjustment of the mA and/or kV according to patient size, use of iterative reconstruction technique) copyright 2011 [employer]- All Rights Reserved Pelvis MRI 11/13/18 22:08 IMPRESSION: Previously detailed large mass located about the anterior/inferior abdomen appears to correspond to a large pedunculated leiomyoma in the midst multiple additional uterine leiomyomas, as above described. Specifically, the left ovary is well visualized and appears normal, demonstrating only a few normal-appearing follicles. However, given this lesion's large size and somewhat unusual configuration, continued follow-up/gynecological consultation would be of benefit to determine appropriate management and completely exclude a more sinister process such as leiomyosarcoma. Inflammatory stranding surrounding a short segment of sigmoid colon as well as the suspected large pedunculated fibroid about the anterior/inferior pelvis. Overall, findings remain suspicious for acute sigmoid diverticulitis although technically pelvic inflammatory disease could have this appearance. Correlate. copyright 2010 [employer]- All Rights Reserved Chest/Abdomen CTA 11/14/18 00:00 IMPRESSION: Slightly limited study. No obvious pulmonary emboli. No aortic aneurysm or dissection. Chest X-Ray 11/15/18 00:00 IMPRESSION: Central venous access catheter placed via right IJ approach. Catheter tip overlies the SVC near- above the level of the evangelina. No pneumothorax. Radiographic appearance of the chest otherwise stable. Assessment & Plan - Diagnosis (1) Diverticulitis Is this a current diagnosis for this admission?: Yes - Plan Summary Plan Summary: This is a 38-year-old female with acute diverticulitis. Her symptoms appear to be improving. Her leukocytosis is improved today. The patient reports bowel function, however she still has significant amounts of nausea with the ingestion of clear liquids. I will maintain her on clear liquids for today. If the patient's nausea subsides, her diet may be advanced. Continue with intravenous antibiotics. The patient will require a colonoscopy 6 to 8 weeks after resolution of her symptoms. I will continue to follow this patient closely with you.
[2018-11-19] MEDS ORDERED: HALOPERIDOL LACTATE INJ 5 MG/1 ML VIAL IV PRN (16:25)
--- NOTE | 2018-11-19 16:27 | PDOC PROGRESS REPORT ---
Subjective Progress Note for:: 11/19/18 Subjective:: ABRIL KENDRICK is a 38 year old female with a PMH significant only for morbid obesity who was admitted 11/15/2018 for acute sigmoid diverticulitis. Patient was seen this morning on rounds, resting in her bedside recliner. The patient patient states she is very hungry and she is "tired of" her clear liquid diet. The patient states she vomited 2 days ago but nursing staff states the patient simply "spit out her food." The patient endorses flatus and having bowel movements. Will attempt to advance her diet today. The patient is very specific that she is [place] and will only eat certain foods. I explained to her that if she vomits, we will need to back her off to NPO status again. Abdominal exam is benign today. (+) BS. S/NT/ND. The patient will remain at [facility] for treatment of her diverticulitis. Reason For Visit: ABDOMINAL PAIN,ANEMIA,DIVERTICULITIS,FIBROID UTERU Physical Exam Vital Signs: Temp Pulse Resp BP Pulse Ox 98.3 F 58 L 22 H 117/72 95 11/19/18 11:56 11/19/18 11:56 11/19/18 11:56 11/19/18 11:56 11/19/18 11:56 Intake & Output 11/18/18 11/19/18 11/20/18 06:59 06:59 06:59 Intake Total 5436 1964 480 Balance 5436 1964 480 Weight 114.1 kg 113.7 kg General appearance: PRESENT: no acute distress, obese Head exam: PRESENT: atraumatic, normocephalic Eye exam: PRESENT: conjunctiva pink, EOMI, PERRLA. ABSENT: scleral icterus Ear exam: PRESENT: normal external ear exam Mouth exam: PRESENT: moist, tongue midline Neck exam: ABSENT: carotid bruit, JVD, lymphadenopathy, thyromegaly Respiratory exam: PRESENT: clear to auscultation holli, symmetrical, unlabored. ABSENT: rales, rhonchi, wheezes Cardiovascular exam: PRESENT: RRR. ABSENT: diastolic murmur, rubs, systolic murmur Pulses: PRESENT: normal radial pulses, normal dorsalis pedis pul Vascular exam: PRESENT: normal capillary refill GI/Abdominal exam: PRESENT: normal bowel sounds, soft. ABSENT: distended, guarding, mass, organolmegaly, rebound, tenderness Rectal exam: PRESENT: deferred Extremities exam: PRESENT: full ROM. ABSENT: calf tenderness, clubbing, pedal edema Musculoskeletal exam: PRESENT: full ROM Neurological exam: PRESENT: alert, awake, oriented to person, oriented to place, oriented to time, oriented to situation Psychiatric exam: PRESENT: appropriate affect, normal mood Skin exam: PRESENT: dry, intact, warm. ABSENT: cyanosis, rash Results Laboratory Results: 11/19/18 06:49 11/19/18 06:49 11/19/18 11/19/18 11/19/18 06:49 06:49 06:49 WBC 11.1 H RBC 4.71 Hgb 9.6 L Hct 31.2 L MCV 66 L MCH 20.3 L MCHC 30.6 L RDW 31.7 H Plt Count 342 Sodium 141.3 Potassium 3.7 Chloride 106 Carbon Dioxide 23 Anion Gap 12 BUN 10 Creatinine 0.82 Est GFR ( Amer) > 60 Est GFR (Non-Af Amer) > 60 Glucose 103 Calcium 8.6 Phosphorus 4.2 Magnesium 2.0 Total Bilirubin 1.5 H AST 161 H ALT 74 H Alkaline Phosphatase 95 Total Protein 6.8 Albumin 3.0 L Lipase 417.0 H Serum HCG, Qual NEGATIVE 11/15/18 13:15 Bbk Unit Gram Stain - Final 11/15/18 13:15 Bbk Unit Body Fluid Culture - Final NO AEROBIC OR ANAEROBIC ORGANISMS RECOVERED 11/14/18 03:51 Blood Blood Culture - Final NO GROWTH IN 5 DAYS 11/14/18 00:40 Blood Blood Culture - Final NO GROWTH IN 5 DAYS Impressions: Abdomen/Pelvis CT 11/13/18 20:00 IMPRESSION: Findings suspicious for acute sigmoid diverticulitis. Focus of gas density located immediately adjacent to the sigmoid colon as above described most likely corresponds to gas within a diverticula as opposed to a focus of contained perforation. No definitive areas of extraluminal free air identified. Likewise, no drainable fluid collections are apparent. Fibroid uterus. Additional multilobulated mass located adjacent to the anterior aspect of the uterine fundus potentially corresponds to a multilobulated/exophytic subserosal fibroid. However, confirmation with contrast-enhanced pelvic MR is suggested to confirm that this does not represent a solid ovarian mass or other malignancy. In addition, elements of inflammatory stranding are noted immediately adjacent to the inferior aspect of this mass though this is presumably related to the short segment of sigmoid diverticulitis. Additional ovoid fluid density located about the inferior aspect of the cecum near the base of the appendix presumably represents fluid within the cecum though technically an appendiceal mucocele could have this appearance. Consider correlation with repeat CT abdomen/pelvis with oral contrast for further assessment. TECHNICAL DOCUMENTATION: Quality ID # 436: Final reports with documentation of one or more dose reduction techniques (e.g., Automated exposure control, adjustment of the mA and/or kV according to patient size, use of iterative reconstruction technique) copyright 2011 [employer]- All Rights Reserved Pelvis MRI 11/13/18 22:08 IMPRESSION: Previously detailed large mass located about the anterior/inferior abdomen appears to correspond to a large pedunculated leiomyoma in the midst multiple additional uterine leiomyomas, as above described. Specifically, the left ovary is well visualized and appears normal, demonstrating only a few normal-appearing follicles. However, given this lesion's large size and somewhat unusual configuration, continued follow-up/gynecological consultation would be of benefit to determine appropriate management and completely exclude a more sinister process such as leiomyosarcoma. Inflammatory stranding surrounding a short segment of sigmoid colon as well as the suspected large pedunculated fibroid about the anterior/inferior pelvis. Overall, findings remain suspicious for acute sigmoid diverticulitis although technically pelvic inflammatory disease could have this appearance. Correlate. copyright 2010 [employer]- All Rights Reserved Chest/Abdomen CTA 11/14/18 00:00 IMPRESSION: Slightly limited study. No obvious pulmonary emboli. No aortic aneurysm or dissection. Chest X-Ray 11/15/18 00:00 IMPRESSION: Central venous access catheter placed via right IJ approach. Catheter tip overlies the SVC near- above the level of the evangelina. No pneumothorax. Radiographic appearance of the chest otherwise stable. Assessment and Plan - Diagnosis (1) Sigmoid diverticulitis Is this a current diagnosis for this admission?: Yes Plan: Patient is admitted to [facility] on continuous cardiac telemetry. Blood cultures are negative Repeat blood cultures are negative Leukocytosis up slightly; 18 (peak)-> 10 (today) Afebrile in last 48 hours. Continue on IV Cipro and p.o. Flagyl Clear liquids. Analgesics and antiemetics as needed -->will attempt low dose haldol for nausea since zofran and phenergan offered no relief Ambulate frequently Surgical services are consulted; appreciate their assistance. Patient should follow up with the [facility] ~2 weeks after discharge. (2) Anemia Qualifiers: Anemia type: iron deficiency Iron deficiency anemia type: chronic blood loss Qualified Code(s): D50.0 - Iron deficiency anemia secondary to blood loss (chronic) Is this a current diagnosis for this admission?: Yes Plan: Iron deficiency anemia; underlying cause most likely uterine. Patient reports irregular and heavy menses. Hemoccult stool negative. Hgb 6.4 -> 7.8 (s/p 2 units)-> 9.6 (today) Now s/p 2 units PRBC (TAR inaccurately reports 4 units transfused) Anemia panel demonstrated iron deficiency. Daily CBC. Start MVI and iron supplementation once passing gas/having bm secondary to constipating properties. Consider iron infusion. (3) Morbid obesity Is this a current diagnosis for this admission?: Yes Plan: Dietary discretion is advised. (4) Pelvic mass in female Is this a current diagnosis for this admission?: Yes Plan: BOOKING MANAGER and surgical services are consulted. BOOKING MANAGER has evaluated the patient and determined that she can follow-up as an outpatient following treatment of diverticulitis for evaluation and management of her uterine fibroids. Possibility of malignancy is considered; final determination for further e valuation per the DECORATOR HAND service. (5) Tachypnea Is this a current diagnosis for this admission?: Yes Plan: Resolved Chest x-ray was normal. CTA Chest, however, was negative for pulmonary embolus. (6) Transfusion reaction Qualifiers: Encounter type: initial encounter Qualified Code(s): T80.92XA - Unspecified transfusion reaction, initial encounter Is this a current diagnosis for this admission?: Yes Plan: Ruled out. Patient developed transfusion reaction during first 15 min of PRBC transfusion Nursing noted increased HR (70-> 93-> 104), RR (18-> 36-> 40), Temperature (98.1-> 99.9-> 102.9), w/ brief decreased BP. Transfusion stopped and lab notified. Laboratory evaluation is nml; pathologist did not find evidence of transfusion reaction. CXR is benign. Received Tylenol 975 mg, Benadryl 25 mg IV x1, and Motrin 600 mg p.o. x1 r/t persistently elevated temperature. Did not require epinephrine. - Time Time Spent with patient: 15-24 minutes Medications reviewed and adjusted accordingly: Yes Anticipated discharge: Home - Inpatient Certification Based on my medical assessment, after consideration of the patient's comorbidities, presenting symptoms, or acuity I expect that the services needed warrant INPATIENT care.: Yes I certify that my determination is in accordance with my understanding of Medicare's requirements for reasonable and necessary INPATIENT services [42 CFR 412.3e].: Yes Medical Necessity: Need for IV Antibiotics, Risk of Complication if Not Cared For in Hospital
[2018-11-19] MEDS: ACETAMINOPHEN 325 MG TABLET PO PRN (17:09)
[2018-11-19] MEDS ORDERED: METRONIDAZOLE 500 MG TABLET ONE (23:42)
[2018-11-20] MEDS: METRONIDAZOLE 500 MG TABLET PO SCH ×3 (00:27→13:11)
[2018-11-20] MEDS: HEPARIN SOD (PORCINE) 5,000 UNIT/ML 1 ML SYRINGE SUBCUT SCH ×2 (05:16→13:10)
[2018-11-20] MEDS ORDERED: METRONIDAZOLE 500 MG TABLET ONE (06:20)
[2018-11-20] MEDS: CIPROFLOXACIN 400 MG/D5W RTU 400 MG/200 ML RTUPB IV SCH (10:12)
[2018-11-20 10:31] LABS: HEMATOCRIT 29.5 % (36.0-47.0); HEMOGLOBIN 9.2 g/dL (12.0-15.5); MEAN CORPUSCULAR HEMOGLOBIN 20.6 pg (27.0-33.4); MEAN CORPUSCULAR HGB CONC 31.1 g/dL (32.0-36.0); MEAN CORPUSCULAR VOLUME 66 fl (80-97); PLATELET COUNT 372 10^3/uL (150-450); RED BLOOD COUNT 4.46 10^6/uL (3.72-5.28); RED CELL DISTRIBUTION WIDTH 32.1 % (11.5-14.0); WHITE BLOOD COUNT 9.9 10^3/uL (4.0-10.5)
[2018-11-20 10:54] LABS: ALANINE AMINOTRANSFERASE 66 U/L (9-52); ALBUMIN 2.8 g/dL (3.5-5.0); ALKALINE PHOSPHATASE 85 U/L (38-126); ANION GAP 8 (5-19); ASPARTATE AMINO TRANSFERASE 85 U/L (14-36); BILIRUBIN,DIRECT 0.6 mg/dL (0.0-0.4); BLOOD UREA NITROGEN 7 mg/dL (7-20); CALCIUM 8.3 mg/dL (8.4-10.2); CARBON DIOXIDE 26 mmol/L (22-30); CHLORIDE 104 mmol/L (98-107); GLUCOSE 118 mg/dL (75-110); IRON 21.6 ug/dL (37-170); LIPASE 549.5 U/L (23-300); POTASSIUM 3.7 mmol/L (3.6-5.0); SODIUM 138.1 mmol/L (137-145); TOTAL PROTEIN 6.5 g/dL (6.3-8.2)
[2018-11-20 15:40] VITALS: BP 122/71
--- NOTE | 2018-11-26 22:53 | PDOC DISCHARGE SUMMARY ---
General - Admit/Disc Date/PCP Admission Date/Primary Care Provider: 11/14/18 13:50 Discharge Date: 11/20/18 - Discharge Diagnosis (1) Sigmoid diverticulitis Is this a current diagnosis for this admission?: Yes (2) Anemia Is this a current diagnosis for this admission?: Yes (3) Morbid obesity Is this a current diagnosis for this admission?: Yes (4) Pelvic mass in female Is this a current diagnosis for this admission?: Yes (5) Tachypnea Is this a current diagnosis for this admission?: Yes (6) Transfusion reaction Is this a current diagnosis for this admission?: Yes - Additional Information Resuscitation Status: Full Code Discharge Diet: As Tolerated Discharge Activity: Activity As Tolerated Prescriptions: Ciprofloxacin HCl [Cipro 500 mg Tablet] 500 mg PO BID #8 tablet Metronidazole [Flagyl 500 mg Tablet] 500 mg PO Q6 #16 tablet Ondansetron HCl [Zofran 8 mg Tablet] 8 mg PO Q8HP PRN #10 tablet PRN Reason: Home Medications: Ciprofloxacin HCl [Cipro 500 mg Tablet] 500 mg PO BID #8 tablet 11/20/18 Metronidazole [Flagyl 500 mg Tablet] 500 mg PO Q6 #16 tablet 11/20/18 Ondansetron HCl [Zofran 8 mg Tablet] 8 mg PO Q8HP PRN #10 tablet 11/20/18 History of Present Illness History of Present Illness: ABRIL KENDRICK is a 38 year old female with a PMH significant only for morbid obesity who presented to the emergency department with a complaint of 2 days of progressively worsening bilateral lower quadrant abdominal pain associated with nausea and one episode of emesis 2 days ago. She denies fever, chills, constipation, diarrhea, melena, and hematochezia. Evaluation in the emergency department was remarkable for leukocytosis (WBC 18.8), anemia (Hgb 6.4/HCT 22.3), and an unremarkable chemistry, urinalysis, and occult stool. CT scan A/P revealed sigmoid diverticulosis, and numerous uterine fibroids. MRI of the abdomen and pelvis demonstrated inflammatory stranding around a short segment of the sigmoid colon as well as a large pedunculated fibroid in the anterior/inferior pelvis with suspicious attachment to the uterus in addition to her numerous uterine fibroids. Surgery was consulted; initially recommended patient be transferred to a tertiary care center. ED provider had difficulty finding an accepting physician to the hospitalist service was consulted for admission. Prior to admitting, WALL CRANE OPERATOR, Dr. Leon, evaluated the patient and felt that that her uterine fibroids could be managed as an outpatient following treatment for acute diverticulitis. Spoke with Dr. Echols regarding his recommendation for tertiary care center; he followed up with in-house radiology to review MRI together. Upon second review, no mucocele was identified and the pelvic mass most likely represents a pedunculated uterine fibroid although we have myosarcoma cannot definitively be ruled out. Sigmoid diverticulitis is confirmed. Dr. Echols agreed the patient could be managed at [facility] on office surgical services to continue following patient. Upon my assessment, I found the patient to be dyspneic with short/shallow respirations and a persistent respiratory rate in the mid 30s and mild tachycardia of 104. She denies history of DVT/PE, does not smoke or use control. She does have morbid obesity and frequent long distant travel as risk factors, although her last travel was mid September. D-dimer was elevated to 2.48; fortunately, follow-up CTA of the chest was negative for pulmonary embolus. Hospital Course Hospital Course: ABRIL KENDRICK is a 38 year old female with a PMH significant only for morbid obesity who was admitted 11/15/2018 for acute sigmoid diverticulitis. Seen on initial CT abd/pelvis, as well as uterine fibroids. The patient was admitted to the hospitalist service with surgery consulted. Presented with a leukcytosis of 18.8 and quickly spiked a fever (TMAX 102.9). The patient was appropriately treated with IV ciprofloxacin and oral Flagyl. Blood and urine cultures were negative. Patient was initially made n.p.o., no over the course of approximately 1 week her diet was very slowly advanced. During her hospital stay, the patient was noted to be anemic with a Hgb 6.8. Anemia studies revealed iron deficiency anemia, likely stemming from bleeding fibroids. The patient was transfused 2 U PRBC and her Hgb appropriately responded. WALL CRANE OPERATOR was consulted. They determined that she can follow-up as an outpatient following treatment of diverticulitis for evaluation and further management of her uterine fibroids. During the last 48 hours of her hospital stay, the patient was able to tolerate solid foods. Her vital signs and laboratory results had normalized. She was sent home with prescriptions for Cipro and Flagyl to complete her antibiotic treatment. Physical Exam Vital Signs: Temp Pulse Resp BP Pulse Ox 98.6 F 60 16 122/71 100 11/20/18 15:00 11/20/18 15:00 11/20/18 15:00 11/20/18 15:00 11/20/18 15:00 Intake & Output 11/21/18 11/22/18 11/23/18 06:59 06:59 06:59 Intake Total 200 Balance 200 General appearance: PRESENT: no acute distress, obese Head exam: PRESENT: atraumatic, normocephalic Eye exam: PRESENT: conjunctiva pink, EOMI, PERRLA. ABSENT: scleral icterus Ear exam: PRESENT: normal external ear exam Mouth exam: PRESENT: moist, tongue midline Neck exam: ABSENT: carotid bruit, JVD, lymphadenopathy, thyromegaly Respiratory exam: PRESENT: clear to auscultation holli, symmetrical, unlabored. ABSENT: rales, rhonchi, wheezes Cardiovascular exam: PRESENT: RRR. ABSENT: diastolic murmur, rubs, systolic murmur Pulses: PRESENT: normal radial pulses, normal dorsalis pedis pul Vascular exam: PRESENT: normal capillary refill GI/Abdominal exam: PRESENT: normal bowel sounds, soft. ABSENT: distended, gua rding, mass, organolmegaly, rebound, tenderness Rectal exam: PRESENT: deferred Extremities exam: PRESENT: full ROM. ABSENT: calf tenderness, clubbing, pedal edema Musculoskeletal exam: PRESENT: ambulatory, full ROM Neurological exam: PRESENT: alert, awake, oriented to person, oriented to place, oriented to time, oriented to situation Psychiatric exam: PRESENT: appropriate affect, normal mood. ABSENT: homicidal ideation, suicidal ideation Skin exam: PRESENT: dry, intact, warm. ABSENT: cyanosis, rash Results Laboratory Results: 11/20/18 10:15 11/20/18 10:15 Impressions: Abdomen/Pelvis CT 11/13/18 20:00 IMPRESSION: Findings suspicious for acute sigmoid diverticulitis. Focus of gas density located immediately adjacent to the sigmoid colon as above described most likely corresponds to gas within a diverticula as opposed to a focus of contained perforation. No definitive areas of extraluminal free air identified. Likewise, no drainable fluid collections are apparent. Fibroid uterus. Additional multilobulated mass located adjacent to the anterior aspect of the uterine fundus potentially corresponds to a multilobulated/exophytic subserosal fibroid. However, confirmation with contrast-enhanced pelvic MR is suggested to confirm that this does not represent a solid ovarian mass or other malignancy. In addition, elements of inflammatory stranding are noted immediately adjacent to the inferior aspect of this mass though this is presumably related to the short segment of sigmoid diverticulitis. Additional ovoid fluid density located about the inferior aspect of the cecum near the base of the appendix presumably represents fluid within the cecum though technically an appendiceal mucocele could have this appearance. Consider correlation with repeat CT abdomen/pelvis with oral contrast for further assessment. TECHNICAL DOCUMENTATION: Quality ID # 436: Final reports with documentation of one or more dose reduction techniques (e.g., Automated exposure control, adjustment of the mA and/or kV according to patient size, use of iterative reconstruction technique) copyright 2011 [employer]- All Rights Reserved Pelvis MRI 11/13/18 22:08 IMPRESSION: Previously detailed large mass located about the anterior/inferior abdomen appears to correspond to a large pedunculated leiomyoma in the midst multiple additional uterine leiomyomas, as above described. Specifically, the left ovary is well visualized and appears normal, demonstrating only a few normal-appearing follicles. However, given this lesion's large size and somewhat unusual configuration, continued follow-up/gynecological consultation would be of benefit to determine appropriate management and completely exclude a more sinister process such as leiomyosarcoma. Inflammatory stranding surrounding a short segment of sigmoid colon as well as the suspected large pedunculated fibroid about the anterior/inferior pelvis. Overall, findings remain suspicious for acute sigmoid diverticulitis although technically pelvic inflammatory disease could have this appearance. Correlate. copyright 2010 [employer]- All Rights Reserved Chest/Abdomen CTA 11/14/18 00:00 IMPRESSION: Slightly limited study. No obvious pulmonary emboli. No aortic aneurysm or dissection. Chest X-Ray 11/15/18 00:00 IMPRESSION: Central venous access catheter placed via right IJ approach. Cath eter tip overlies the SVC near- above the level of the evangelina. No pneumothorax. Radiographic appearance of the chest otherwise stable. Status: Imported from PACS Qualifiers - * PATIENT BEING DISCHARGED WITH ANY OF THE FOLLOWING DIAGNOSIS: No Acute Heart Failure - Is this a Heart Failure Patient?: No
== END 2018-11-20 16:15 | disposition home or self-care (01) | DRG 392 ==
LOC: ER 15:23 → EH 11-14 13:50 → 3W 11-14 17:14
PROVIDERS: ADMIT Internal Medicine; ATTEND Internal Medicine
PROC: 02HV33Z Insertion of Infusion Device into Superior Vena Cava, Percutaneous Approach (ICD-10-PCS; principal; 2018-11-14)
PROC: 30233N1 Transfusion of Nonautologous Red Blood Cells into Peripheral Vein, Percutaneous Approach (ICD-10-PCS; 2018-11-14)
DX: K57.32 Diverticulitis of large intestine without perforation or abscess without bleeding (principal); Z60.2 Problems related to living alone; D25.0 Submucous leiomyoma of uterus; E66.01 Morbid (severe) obesity due to excess calories; K38.8 Other specified diseases of appendix; D50.0 Iron deficiency anemia secondary to blood loss (chronic); Z79.899 Other long term (current) drug therapy
CPT/HCPCS: 36415; 36430; 71045; 71275; 72197; 74177; 80048; 80053; 81001; 81002; 82607; 82728; 82746; 83540; 83550; 83605; 83690; 83735; 84100; 84703; 85025; 85027; 85045; 85379; 86850; 86900; 86901; 86920; 87040; 87070; 87075; 87205; 87491; 87591; 96361; 96365; 96366; 96367; 96375; 99285; C1751; J0744; J1200; J1644; J2270; J2405; J2550; J3490; J7030; J7050; J7120; P9016; S0119; S0164

== ENCOUNTER → 2019-02-17 | Outpatient (CLI) | payer BC ==
[2019-02-18 08:37] LABS: HEPATITIS C VIRUS AB <0.1 s/co ratio (0.0-0.9)
[2019-02-18 08:48] LABS: HEPATITS B SURFACE ANTIGEN Negative (Negative)
[2019-02-18 19:03] LABS: ACTIN (SMOOTH MUSCLE) ANTIBODY 14 Units (0-19)
== END ==
LOC: LAB 07:49
PROVIDERS: ATTEND Internal Medicine Gastroenterology
DX: R94.5 Abnormal results of liver function studies (principal)
CPT/HCPCS: 36415; 86038; 86235; 86317; 86803; 86804; 87340

== ENCOUNTER 2019-07-31 22:41 | Emergency (ER) | payer BC ==
--- NOTE | 2019-07-31 23:31 | ER Document Report ---
ED Medical Screen (RME) - General Chief Complaint: Post Surgical Bleeding Stated Complaint: POST OP PAIN/BLEEDING Time Seen by Provider: 07/31/19 23:16 Primary Care Provider: CRISTAL COLVIN [Primary Care Provider] - Follow up as needed TRAVEL OUTSIDE OF THE [place] IN LAST 30 DAYS: No - HPI Notes: 07/31/19 23:30 39-year-old female to the emergency department with complaints of a draining abdominal wound. She states that she had a myomectomy last week. She states that she was doing well until yesterday when she started to note some day drainage. Today the drainage was more. She states that the drainage is both bloody and slightly sticky. She denies any fevers that she knows of. She states that the pain is not particularly worse. She states that she has not tried to call the SOLE SKIVER who performed the myomectomy. This was done at [facility] in [place]. I performed a brief medical screening exam on the patient determined that the patient needs further evaluation and management by main side provider. I have placed initial orders to help expedite care. - Related Data Allergies/Adverse Reactions: No Known Allergies Allergy (Verified 11/13/18 15:25) Home Medications: colace, oxycodone, motrin, gabapentin Past Medical History Renal/ Medical History: Reports: Hx Ovarian Cysts. Denies: Hx Peritoneal Dialysis Psychiatric Medical History: Denies: Hx Depression Physical Exam - Vital signs Vitals: Temp Pulse Resp BP Pulse Ox 98.5 F 99 18 141/73 H 99 07/31/19 22:46 07/31/19 22:46 07/31/19 22:46 07/31/19 22:46 07/31/19 22:46 Course - Vital Signs Vital signs: Temp Pulse Resp BP Pulse Ox 98.5 F 99 18 141/73 H 99 07/31/19 22:46 07/31/19 22:46 07/31/19 22:46 07/31/19 22:46 07/31/19 22:46 Doctor's Discharge - Discharge Referrals: CRISTAL COLVIN [Primary Care Provider] - Follow up as needed
[2019-08-01 00:39] LABS: ABSOLUTE BASOPHILS # (AUTO) 0.1 10^3/uL (0.0-0.2); ABSOLUTE EOSINOPHILS # (AUTO) 0.1 10^3/uL (0.0-0.6); ABSOLUTE LYMPHOCYTES (AUTO) 2.5 10^3/uL (0.5-4.7); ABSOLUTE MONOCYTES (AUTO) 0.8 10^3/uL (0.1-1.4); ABSOLUTE NEUT (AUTO) 5.5 10^3/uL (1.7-8.2); BASOPHILS % (AUTO) 0.7 % (0-2); EOSINOPHILS % (AUTO) 1.3 % (0-6); HEMATOCRIT 21.9 % (36.0-47.0); LYMPHOCYTES % (AUTO) 28.3 % (13-45); MEAN CORPUSCULAR HEMOGLOBIN 27.8 pg (27.0-33.4); MEAN CORPUSCULAR HGB CONC 32.8 g/dL (32.0-36.0); MEAN CORPUSCULAR VOLUME 85 fl (80-97); MONOCYTES % (AUTO) 8.6 % (3-13); PLATELET COUNT 371 10^3/uL (150-450); RED BLOOD COUNT 2.58 10^6/uL (3.72-5.28); RED CELL DISTRIBUTION WIDTH 20.1 % (11.5-14.0); SEGMENTED NEUTROPHILS % (AUTO) 61.1 % (42-78); TOTAL CELLS COUNTED % (AUTO) 100 %; WHITE BLOOD COUNT 8.9 10^3/uL (4.0-10.5)
--- NOTE | 2019-08-01 00:40 | ER Document Report ---
ED Wound - General Chief Complaint: Post Surgical Bleeding Stated Complaint: POST OP PAIN/BLEEDING Time Seen by Provider: 07/31/19 23:16 Notes: Patient is a 39-year-old female that comes emergency department for chief complaints of draining from her postoperative wound over her lower abdomen. She had a myomectomy on 07/24/2019 at [facility] by OBGYMarti lawrence. She states she was seen in follow-up yesterday, had the wound checked, had an area where her Steri-Strips had fallen off and this was evaluated and approved, she states that there were no concerns yesterday, however she states that she got up quickly earlier and afterwards noticed a little bit of bloody drainage from the top of the wound, she states that she also noticed some clear fluid later from this. She denies any pain to the area or any change in pain from prior, feet denies fevers, redness to the area, purulent drainage, nausea or vomiting, or any other complaints. TRAVEL OUTSIDE OF THE [place] IN LAST 30 DAYS: No - Related Data Allergies/Adverse Reactions: No Known Allergies Allergy (Verified 11/13/18 15:25) Home Medications: colace, oxycodone, motrin, gabapentin Past Medical History - General Information source: Patient - Social History Smoking Status: Never Smoker Frequency of alcohol use: None Drug Abuse: None Lives with: Family Family History: Reviewed & Not Pertinent Patient has suicidal ideation: No Patient has homicidal ideation: No Renal/ Medical History: Reports: Hx Ovarian Cysts. Denies: Hx Peritoneal Dialysis Psychiatric Medical History: Denies: Hx Depression Past Surgical History: Reports: Hx Gynecologic Surgery - Myomectomy 2019 - Immunizations Immunizations up to date: Yes Hx Diphtheria, Pertussis, Tetanus Vaccination: Yes Review of Systems - Review of Systems Constitutional: No symptoms reported EENT: No symptoms reported Cardiovascular: No symptoms reported Respiratory: No symptoms reported Gastrointestinal: See HPI Genitourinary: No symptoms reported Female Genitourinary: See HPI Musculoskeletal: No symptoms reported Skin: See HPI Hematologic/Lymphatic: No symptoms reported Neurological/Psychological: No symptoms reported Physical Exam - Vital signs Vitals: Temp Pulse Resp BP Pulse Ox 98.5 F 99 18 141/73 H 99 07/31/19 22:46 07/31/19 22:46 07/31/19 22:46 07/31/19 22:46 07/31/19 22:46 - Notes Notes: GENERAL: Alert, interacts well. No acute distress. HEAD: Normocephalic, atraumatic. EYES: Pupils equal, round, and reactive to light. Extraocular movements intact. ENT: Oral mucosa moist, tongue midline. Oropharynx unremarkable. Airway patent. LUNGS: Clear to auscultation bilaterally, no wheezes, rales, or rhonchi. No respiratory distress. HEART: Regular rate and rhythm. No murmur ABDOMEN: There is a ventral scar in the lower abdomen extending down below the umbilicus. Steri-Strips are in place except for in the middle aspect of the wound. There is a small amount of serous and pink-tinged fluid coming from the top of the wound where Steri-Strips appear to have loosened. There is no significant dehiscence or opening of the wound, there is no erythema, notable tenderness, or purulent drainage. No foul smell. Abdomen unremarkable otherwise without notable tenderness or distention. GENITOURINARY: Deferred EXTREMITIES: Moves all 4 extremities spontaneously. No edema, normal radial and dorsalis pedis pulses bilaterally. No cyanosis. BACK: no cervical, thoracic, lumbar midline tenderness. No saddle anesthesia, normal distal neurovascular exam. Moves all extremities in full range of motion. NEUROLOGICAL: Alert and oriented x3. Normal speech. Cranial nerves II through XII grossly intact. PSYCH: Normal affect, normal mood. SKIN: Warm, dry, normal turgor. No rashes or lesions noted. Course - Re-evaluation Re-evalutation: There is an area of slightly irregular wound healing where the Steri-Strips already came off in the vertical wound but this was already evaluated yesterday by TECHNOLOGY INFUSION SPECIALIST per patient. There is no drainage from this area. There is a tiny amount of serous drainage from underneath the top 2 Steri-Strips, these appear to have been pulled slightly apart, however the wound is intact underneath and only has a very small of disruption at the very top. There is no significant wound drainage, no significant dehiscence or opening of the wound, no erythema, tenderness, or concerning findings. Patient is afebrile. Because the area is so small and the area is so reassuring we will simply clean the area and reapproximate this after removing the 2 disrupted Steri-Strips. 08/01/19 01:55 I called and spoke with Dr. Lanza, on-call for Dr. Ayers. He states that at this time patient can be discharged but she needs to call the office either tomorrow or Saturday and be seen in very close follow-up for recheck of her hemoglobin and additional management of this. She will also be discharged with return precautions. I discussed this with patient. She states satisfaction and agreement with plan. Patient got up, ambulated, did not have any dizziness, has unremarkable vital signs, stable and well-appearing at time of discharge. - Vital Signs Vital signs: Temp Pulse Resp BP Pulse Ox 98.5 F 86 16 120/72 98 08/01/19 02:11 08/01/19 02:11 08/01/19 02:11 08/01/19 02:11 08/01/19 02:11 - Laboratory Result Diagrams: 08/01/19 00:05 08/01/19 00:05 Laboratory results interpreted by me: 08/01/19 08/01/19 00:05 00:05 RBC 2.58 L Hgb 7.2 L Hct 21.9 L RDW 20.1 H Glucose 138 H Calcium 8.3 L Albumin 3.4 L Discharge - Discharge Clinical Impression: Drainage from wound Anemia Qualifiers: Anemia type: other cause Other causes of anemia: other cause, not classified Qualified Code(s): D64.89 - Other specified anemias Condition: Stable Disposition: HOME, SELF-CARE Additional Instructions: I spoke with Dr. Lanza, on-call for Dr. Armen castro. Please call their office either tomorrow or Saturday for very close follow-up and additional management especially for your low hemoglobin. Your hemoglobin today is 7.2. The draining area is very small, superficial, and the wound is still intact. Clean area carefully, Steri-Strips will fall off after several days and this should not have additional problems. Follow-up closely with your TECHNOLOGY INFUSION SPECIALIST in the clinic for additional management of this as well. Come back for any concerning symptoms including dizziness, passing out, severe abdominal pain, developing or spreading redness, pus drainage, fever, or any other concerning symptoms.
[2019-08-01 00:41] LABS: HEMOGLOBIN 7.2 g/dL (12.0-15.5)
[2019-08-01 00:52] LABS: ALBUMIN 3.4 g/dL (3.5-5.0); ALKALINE PHOSPHATASE 61 U/L (38-126); ANION GAP 7 (5-19); ASPARTATE AMINO TRANSFERASE 18 U/L (14-36); BILIRUBIN,TOTAL 0.2 mg/dL (0.2-1.3); BLOOD UREA NITROGEN 8 mg/dL (7-20); CALCIUM 8.3 mg/dL (8.4-10.2); CARBON DIOXIDE 25 mmol/L (22-30); CHLORIDE 106 mmol/L (98-107); GLUCOSE 138 mg/dL (75-110); POTASSIUM 4.2 mmol/L (3.6-5.0); TOTAL PROTEIN 6.8 g/dL (6.3-8.2)
[2019-08-01 02:12] VITALS: BP 120/72
== END 2019-08-01 02:12 | disposition home or self-care (01) ==
LOC: ER 22:41
DX: T81.31XA Disruption of external operation (surgical) wound, not elsewhere classified, initial encounter (principal); Y83.8 Other surgical procedures as the cause of abnormal reaction of the patient, or of later complication, without mention of misadventure at the time of the procedure; D64.9 Anemia, unspecified; Z79.899 Other long term (current) drug therapy; Z79.891 Long term (current) use of opiate analgesic; Z79.1 Long term (current) use of non-steroidal anti-inflammatories (NSAID)
CPT/HCPCS: 36415; 80053; 85025; 99283

== ENCOUNTER 2019-09-04 15:44 | Emergency (ER) | payer BC ==
--- NOTE | 2019-09-04 16:01 | ER Document Report ---
ED Medical Screen (RME) - General Chief Complaint: Leg Pain Stated Complaint: POSSIBLE BLOOD CLOT Primary Care Provider: LISETTE ZENG DPM [Primary Care Provider] - Follow up as needed Mode of Arrival: Ambulatory Information source: Patient Notes: Patient presents complaining of right lower extremity pain for the past 2 weeks. Patient had an outpatient Doppler that demonstrated a positive DVT. Patient denies any chest pain or shortness of breath. Patient does take oral contraceptive pills. Patient denies any history of smoking. Patient reports a on 07/24/2019. I have greeted and performed a rapid initial assessment of this patient. A comprehensive ED assessment and evaluation of the patient, analysis of test results and completion of the medical decision making process will be conducted by additional ED providers. TRAVEL OUTSIDE OF THE [place] IN LAST 30 DAYS: No - Related Data Allergies/Adverse Reactions: No Known Allergies Allergy (Verified 11/13/18 15:25) Past Medical History Renal/ Medical History: Reports: Hx Ovarian Cysts. Denies: Hx Peritoneal Dialysis Psychiatric Medical History: Denies: Hx Depression Past Surgical History: Reports: Hx Gynecologic Surgery - Myomectomy 2019 - Immunizations Immunizations up to date: Yes Hx Diphtheria, Pertussis, Tetanus Vaccination: Yes Physical Exam - Vital signs Vitals: Temp Pulse Resp BP Pulse Ox 98.6 F 84 16 177/82 H 97 09/04/19 15:49 09/04/19 15:49 09/04/19 15:49 09/04/19 15:49 09/04/19 15:49 - General General appearance: Appears well, Alert Notes: Right lower extremity tenderness Course - Vital Signs Vital signs: Temp Pulse Resp BP Pulse Ox 98.6 F 84 16 177/82 H 97 09/04/19 15:49 09/04/19 15:49 09/04/19 15:49 09/04/19 15:49 09/04/19 15:49 Doctor's Discharge - Discharge Referrals: LISETTE ZENG DPM [Primary Care Provider] - Follow up as needed
--- NOTE | 2019-09-04 16:22 | ER Document Report ---
ED General - General Chief Complaint: Leg Pain Stated Complaint: POSSIBLE BLOOD CLOT Time Seen by Provider: 09/04/19 16:01 Primary Care Provider: LISETTE ZENG DPM [ACTIVE STAFF] - Follow up as needed Mode of Arrival: Ambulatory Notes: 39 year old female who had a fibroidectomy on 07/24/2019 and was started on OCPs for anemia (which she described as a at triage) presents to the ED for treatment of DVT. Patient states that on approximately 21 August she developed pain in her right foot so she went to see planning engineer, she was started on medication for gout but it did not get any better. She then saw the planning engineer again today and they ordered Doppler, she received a phone call telling her that she had a blood clot in her leg and she should come to the emergency department. Denies any chest pain, denies any shortness of breath, denies any numbness or tingling in her right foot. TRAVEL OUTSIDE OF THE [place] IN LAST 30 DAYS: No - Related Data Allergies/Adverse Reactions: No Known Allergies Allergy (Verified 11/13/18 15:25) Home Medications: control pills Past Medical History - General Information source: Patient - Social History Smoking Status: Never Smoker Frequency of alcohol use: None Drug Abuse: None Family History: Reviewed & Not Pertinent Patient has suicidal ideation: No Patient has homicidal ideation: No Renal/ Medical History: Reports: Hx Ovarian Cysts. Denies: Hx Peritoneal Dialysis Psychiatric Medical History: Denies: Hx Depression Past Surgical History: Reports: Hx Gynecologic Surgery - Myomectomy 2019 - Immunizations Immunizations up to date: Yes Hx Diphtheria, Pertussis, Tetanus Vaccination: Yes Review of Systems - Review of Systems Constitutional: No symptoms reported Cardiovascular: No symptoms reported. denies: Chest pain Respiratory: No symptoms reported. denies: Cough, Hurts to breathe, Short of breath Gastrointestinal: No symptoms reported Musculoskeletal: See HPI -: Yes All other systems reviewed and negative Physical Exam - Vital signs Vitals: Temp Pulse Resp BP Pulse Ox 98.6 F 84 16 177/82 H 97 09/04/19 15:49 09/04/19 15:49 09/04/19 15:49 09/04/19 15:49 09/04/19 15:49 Interpretation: Hypertensive - Notes Notes: GENERAL: Alert, interacts well. No acute distress. HEAD: Normocephalic, atraumatic EYES: Pupils equal, round and reactive to light, extraocular movements intact. ENT: Oral mucosa moist, tongue midline. NECK: Full range of motion, supple, trachea midline. LUNGS: no respiratory distress. ABDOMEN: nondistended. EXTREMITIES: Moves all 4 extremities spontaneously, no edema, dorsalis pedis pulses 2/4 bilaterally. No cyanosis. Right foot is warm to the touch, not significantly swollen, no pitting edema, no color change, full range of motion, sensation intact. NEUROLOGICAL: Alert and oriented x3, normal speech. PSYCH: Normal mood, normal affect. SKIN: Warm, Dry, normal turgor, no rashes or lesions noted. Course - Re-evaluation Re-evalutation: 09/04/19 17:55 Patient has an improving anemia, hemoglobin is now 10.5, states that after surgery was approximately 7, chemistries grossly unremarkable, review of u ltrasound confirms calf DVT. Patient has no signs of pulmonary embolism. Patient will be started on Eliquis and discharged home. - Vital Signs Vital signs: Temp Pulse Resp BP Pulse Ox 98.6 F 84 16 177/82 H 97 09/04/19 15:49 09/04/19 15:49 09/04/19 15:49 09/04/19 15:49 09/04/19 15:49 - Laboratory Result Diagrams: 09/04/19 16:08 09/04/19 16:08 Laboratory results interpreted by me: 09/04/19 09/04/19 16:08 16:08 Hgb 10.5 L Hct 33.1 L MCH 25.7 L MCHC 31.8 L RDW 17.9 H Sodium 135.3 L Carbon Dioxide 21 L Total Bilirubin 0.1 L Discharge - Discharge Clinical Impression: Calf DVT (deep venous thrombosis) Qualifiers: Chronicity: acute Laterality: right Qualified Code(s): I82.4Z1 - Acute embolism and thrombosis of unspecified deep veins of right distal lower extremity Condition: Stable Disposition: HOME, SELF-CARE Additional Instructions: DVT Outpatient Treatment You have deep venous thrombosis (DVT) in your leg. DVT or phlebitis is blood clots within the large deep veins. This causes redness, warmth, and tenderness of the involved area. This problem is more likely to affect people who smoke, take estrogen, have had recent surgery, have been immobile, have had previous DVT, or who have serious underlying health conditions. Keep your legs elevated. A heating pad, 20 minutes every two hours, can help with leg pain. You will be started on a blood-thinning medication. Follow-up is important. Your medication needs to be monitored. Call or return at once if you cough blood or vomit blood, pass black or bloody stool, or have any other unusual bleeding. DVT can cause serious complications. The clots can damage the valves in the veins, leading to chronic pain and swelling. If a clot breaks loose and floats upstream, it can stick in the lungs. A clot in the lungs, called pulmonary embolism, can be life-threatening. Call the doctor or return if you develop increasing leg pain and swelling, leg discoloration, fever, chest pain, or shortness of breath. Please take the Eliquis as directed. You should start out by taking 2 tablets twice a day for the first 7 days and then after that you should take 1 tablet twice a day for the next 3 months or until your blood doctor from [place] tells you to stop. Please call both your blood doctor (heme-onc doc) and your COMPUTER ARCHITECT to discuss the fact that you have a blood clot in your right leg. Prescriptions: Apixaban [Eliquis 5 mg Tablet] 5 mg PO ASDIR PRN #[id number] tablet PRN Reason: Referrals: LISETTE ZENG DPM [ACTIVE STAFF] - Follow up as needed
[2019-09-04 16:32] LABS: ABSOLUTE BASOPHILS # (AUTO) 0.1 10^3/uL (0.0-0.2); ABSOLUTE EOSINOPHILS # (AUTO) 0.1 10^3/uL (0.0-0.6); EOSINOPHILS % (AUTO) 1.4 % (0-6); RED CELL DISTRIBUTION WIDTH 17.9 % (11.5-14.0); TOTAL CELLS COUNTED % (AUTO) 100 %
[2019-09-04 16:38] LABS: ABSOLUTE LYMPHOCYTES (AUTO) 2.3 10^3/uL (0.5-4.7); ABSOLUTE MONOCYTES (AUTO) 0.6 10^3/uL (0.1-1.4); ABSOLUTE NEUT (AUTO) 4.2 10^3/uL (1.7-8.2); BASOPHILS % (AUTO) 0.9 % (0-2); HEMATOCRIT 33.1 % (36.0-47.0); HEMOGLOBIN 10.5 g/dL (12.0-15.5); INTERNATIONAL RATION (INR) 1.03; LYMPHOCYTES % (AUTO) 31.8 % (13-45); MEAN CORPUSCULAR HEMOGLOBIN 25.7 pg (27.0-33.4); MEAN CORPUSCULAR HGB CONC 31.8 g/dL (32.0-36.0); MEAN CORPUSCULAR VOLUME 81 fl (80-97); MONOCYTES % (AUTO) 8.1 % (3-13); PLATELET COUNT 344 10^3/uL (150-450); PROTHROMBIN TIME 13.5 SEC (11.4-15.4); RED BLOOD COUNT 4.09 10^6/uL (3.72-5.28); SEGMENTED NEUTROPHILS % (AUTO) 57.8 % (42-78); WHITE BLOOD COUNT 7.3 10^3/uL (4.0-10.5)
[2019-09-04 16:39] LABS: PARTIAL THROMBOPLASTIN TIME 26.5 SEC (23.5-35.8)
[2019-09-04 16:50] LABS: ALBUMIN 4.3 g/dL (3.5-5.0); ALKALINE PHOSPHATASE 63 U/L (38-126); ANION GAP 10 (5-19); ASPARTATE AMINO TRANSFERASE 19 U/L (14-36); BILIRUBIN,TOTAL 0.1 mg/dL (0.2-1.3); BLOOD UREA NITROGEN 8 mg/dL (7-20); CALCIUM 9.4 mg/dL (8.4-10.2); CARBON DIOXIDE 21 mmol/L (22-30); CHLORIDE 104 mmol/L (98-107); GLUCOSE 101 mg/dL (75-110); POTASSIUM 4.6 mmol/L (3.6-5.0); TOTAL PROTEIN 8.2 g/dL (6.3-8.2)
[2019-09-04] MEDS ORDERED: APIXABAN 5 MG TABLET PO ONE (17:56)
[2019-09-04 18:06] VITALS: BP 137/78
== END 2019-09-04 18:08 | disposition home or self-care (01) ==
LOC: ER 15:44
DX: I82.4Z1 Acute embolism and thrombosis of unspecified deep veins of right distal lower extremity (principal); M79.671 Pain in right foot
CPT/HCPCS: 36415; 80053; 85025; 85610; 85730; 99283

== ENCOUNTER → 2019-09-04 | Outpatient (CLI) | payer BC ==
--- NOTE | 2019-09-04 11:04 | RADIOLOGY REPORT (SQ) ---
EXAM DESCRIPTION: VENOUS UNILATERAL LOWER COMPLETED DATE/TIME: 09/04/2019 10:50 am REASON FOR STUDY: RLE ACUTE EMBOLISM OF RLE I82.401 ACUTE EMBOLISM AND THOMBOS UNSP DEEP VEINS OF R LOW COMPARISON: None. TECHNIQUE: Dynamic and static solis scale and color images acquired of the right leg venous system. S elected spectral images acquired with additional compression and augmentation maneuvers. The contrala teral common femoral vein and saphenofemoral junction were also imaged. Images stored on PACS. LIMITATIONS: None. FINDINGS: COMMON FEMORAL: Normal phasicity, compression and augmentation. No visualized echogenic ma terial on solis scale. No defects on color images. FEMORAL: Normal compression and augmentation. No visualized echogenic material on solis scale. No defe cts on color images. POPLITEAL: Normal compression, augmentation. No visualized echogenic material on solis scale. No defec ts on color images. CALF VESSELS: There is acute thrombus in a posterior tibial vein. Remainder of the calf veins are pa tent. GSV and SSV: Normal compression, augmentation. No visualized echogenic material on solis scale. No def ects on color images. ANY DEEP VENOUS INSUFFICIENCY: Not evaluated. ANY EVIDENCE OF POPLITEAL CYST: No. OTHER: No other significant finding. CONTRALATERAL COMMON FEMORAL VEIN AND SAPHENOFEMORAL JUNCTION: Normal phasicity, compression and augmentation. No visualized echogenic material on solis scale. No de fects on color images. IMPRESSION: Calf DVT isolated to the posterior tibial vein. COMMENT: This report was called to LISETTE ZENG DPM at10:58 on 09/04/2019. The report was freddy led by the ambulatory technologist. TECHNICAL DOCUMENTATION: JOB ID: [id number] 2010 [employer]- All Rights Reserved Reading location - IP/workstation name: [email or web address]
== END ==
LOC: SP 09:53
PROVIDERS: ATTEND Podiatrist Foot & Ankle Surgery
DX: I82.401 Acute embolism and thrombosis of unspecified deep veins of right lower extremity (principal)
CPT/HCPCS: 93971